=== PATIENT | male | born 1940 | race Caucasian/White ===

== ENCOUNTER 2016-06-30 07:30 | Inpatient (IN) | payer MEDICARE ==
--- NOTE | 2016-12-09 22:03 | HP ---
PREOPERATIVE HISTORY AND PHYSICAL: DATE OF ADMISSION/SURGERY: 12/22/16 DATE OF OFFICE VISIT: 12/09/16 ATTENDING SURGEON: Dr. Alyssa Can * (DICTATED BY PRASANNA WAY) PROCEDURE: Left total shoulder replacement. CHIEF COMPLAINT: Left shoulder pain. HISTORY OF PRESENT ILLNESS: Mr. Pimentel is a 76-year-old male, who presents to the clinic for left shoulder pain for several years due to osteoarthritis and a rotator cuff tendinopathy. The patient has failed conservative measures to include physical therapy and injections. Therefore, has agreed to undergo a left total shoulder replacement with Dr. Can on 12/22/16. PAST MEDICAL HISTORY: Atrial fibrillation, arthritis, BPH, COPD, and prothrombin disorder. PAST SURGICAL HISTORY: Left hip, abdominal sheath repair, hernia repair when he was 8 years old. Denies prior complications with anesthesia. MEDICATIONS: 1. Diazepam 5 mg 1 tab 1 hour before procedure, may repeat x1 in 1 hour if no effect. 2. Ventolin HFA 180 mcg per ACT 2 puffs 4 times a day as needed. 3. Amiodarone HCl 200 mg 1 by mouth every day. 4. Carvedilol 3.125 mg by mouth twice a day. 5. Valsartan 80 mg half a tab a day. 6. Percocet 5/325 one by mouth every 12 hours as needed for pain. 7. 150 mg 1 by mouth every other day. 8. Eliquis 5 mg 1 by mouth twice a day. 9. Spiriva Respimat 2.5 mcg per ACT 2 puffs inhaled daily. 10. Multivitamin 1 capsule daily. 11. Finasteride 5 mg 1 by mouth daily. 12. Tamsulosin HCl 0.4 mg 1 by mouth daily. 13. Calm 1 large tablespoon in warm water p.r.n. 14. Magnesium 200 mg once daily. 15. Spironolactone 25 mg take half a tab daily. ALLERGIES: No known drug allergies. FAMILY HISTORY: Positive for diabetes, heart disease, and cancer. SOCIAL HISTORY: He lives with his spouse. He is retired. He is a former smoker, quit 35 years ago. He denies alcohol use. He is right hand dominant. REVIEW OF SYSTEMS: Fourteen-point review of systems was reviewed with the patient, positive for current complaint, otherwise negative. Denies fever, chills, chest pain, shortness of breath, history of DVT or PE, history of bleeding disorder. PHYSICAL EXAMINATION GENERAL: Well-developed, well-nourished, 76-year-old male, in no acute distress. Alert and oriented x3. Appropriate mood and affect. VITAL SIGNS: Height 72, weight 205, blood pressure 118/72, respiratory rate 16 , temperature 96.7, BMI 27.8. HEENT: Normocephalic, atraumatic. PERRLA. Throat clear. NECK: Supple. PULMONARY: Lungs are clear to auscultation bilaterally. No wheezing, rhonchi, or rales. CARDIO: Regular rate and rhythm. S1 and S2. No murmurs, gallops, or rubs. No edema. ABDOMEN: Positive bowel sounds, soft, nontender. NEURO: Alert and oriented x3. Cranial nerves grossly intact. Sensation intact to light touch. MUSCULOSKELETAL: Left shoulder: Skin is intact. No swelling, tenderness over the anterior joint line. Nontender over the AC joint. Forward flexion to 100 degrees, abduction to 110 degrees, external rotation to 20 degrees, internal rotation to lumbar spine. +4/5 strength to supraspinatus and infraspinatus testing. Good strength to belly press and bear hug. Positive Neer, Speed's, Mcdonald-Trevon, [place]. +2 radial pulse. Sensation intact to light touch distally. DIAGNOSTIC STUDIES: MRI revealed glenohumeral arthritis, mild acromioclavicular joint arthritis, superior subluxation of the humeral head, and 50% tear of the supraspinatus tendon with diffuse rotator cuff atrophy. IMPRESSION: Left shoulder osteoarthritis and rotator cuff tendinopathy. PLAN: The patient is scheduled to undergo a left total shoulder reversal with Dr. Can on 12/22/16. He has been cleared by Cardio. The surgery is pending PCP clearance. Percocet will be used for postop pain management and Colace for constipation prevention. PRASANNA WAY [id number]/[facility] #: [id number] [facility] CENTERFelisa
[2016-12-21] MEDS ORDERED: Buffered Lidocaine 0.9% SYRIN* 5 ML/SYR SYRINGE INTRADERM ONE (11:30)
[2016-12-22] MEDS ORDERED: Buffered Lidocaine 0.9% SYRIN* 5 ML/SYR SYRINGE ONE (05:57)
[2016-12-22] MEDS ORDERED: ceFAZolin 2 GM PREMIX (*) 50 ML IVPB ONE (05:57)
[2016-12-22] MEDS ORDERED: EPINEPHrine AMP 1 MG/ML ONE (07:11)
[2016-12-22] MEDS ORDERED: Bupivacaine 0.25% SDV* 30 ML ONE (07:11)
[2016-12-22] MEDS ORDERED: Midazolam* 1 MG/ML 2 ML VIAL (2 MG) ONE ×3 (07:49→17:08)
[2016-12-22] MEDS ORDERED: fentaNYL* 50 MCG/ML 2 ML VIAL (100 MCG VIAL) ONE ×2 (11:51→14:24)
[2016-12-22] MEDS ORDERED: PROCHLORPERAZINE INJ 5 MG/ML 2 ML VIAL IV PRN (13:56)
[2016-12-22] MEDS ORDERED: Succinylcholine* 20 MG/ML 10 ML VIAL ONE (14:12)
[2016-12-22] MEDS ORDERED: EPHEDrine (Pressors)* 50 MG/ML VIAL ONE ×2 (14:12→14:44)
[2016-12-22] MEDS ORDERED: Dexamethasone IV* 4 MG/ML 1 ML (4 MG) ONE (14:12)
[2016-12-22] MEDS ORDERED: Propofol* 10 MG/ML 20 ML BTL IV PUSH ONE (14:12)
[2016-12-22] MEDS ORDERED: Lidocaine 2% PF * 5 ML VIAL ONE (14:12)
[2016-12-22] MEDS ORDERED: Ondansetron INJ* 2 MG/ML VIAL ONE (14:12)
[2016-12-22] MEDS ORDERED: Phenylephrine IV* 40 MCG/ML 10 ML SYRINGE ONE ×2 (14:13→16:26)
--- NOTE | 2016-12-22 15:33 | RAD ---
Indication: Post LEFT reversed glenohumeral joint replacement. Comparison: December 09, 2016 radiographs. Technique: AP and scapular Y views of the LEFT shoulder Report: Portion of glenoid component of reversed shoulder prosthesis in place. . Resection of the head of the humerus at the surgical neck. No visualized fracture. IMPRESSION: Intraoperative control film.
[2016-12-22] MEDS ORDERED: Ondansetron INJ* 2 MG/ML VIAL IV PRN (17:04)
[2016-12-22] MEDS ORDERED: Polyethylene Glycol 3350* 17 GM PACKET PO PRN (17:04)
[2016-12-22] MEDS ORDERED: Magnesium Hydroxide LIQ* 30 ML UDC PO PRN (17:04)
[2016-12-22] MEDS ORDERED: Bisacodyl SUPP* 10 MG SUPP PR PRN (17:04)
[2016-12-22] MEDS ORDERED: oxyCODONE TAB* 5 MG TAB PO PRN (17:04)
[2016-12-22] MEDS ORDERED: Acetaminophen TAB* 325 MG PO PRN (17:04)
[2016-12-22] MEDS ORDERED: Morphine INJ* 2 MG/ML 1 ML CARPUJECT IV PRN (17:04)
[2016-12-22] MEDS ORDERED: diPHENhydraMINE IV* 50 MG/ML 1 ml VIAL (BENADRYL) IV PRN (17:04)
[2016-12-22] MEDS ORDERED: Albuterol HFA INHALER* 8 gm MDI INH PRN (17:18)
[2016-12-22] MEDS ORDERED: Diazepam TAB(*) 5 MG PO PRN (17:18)
[2016-12-22] MEDS ORDERED: ceFAZolin 1 GM VIAL(*) 1 GM in NS 0.9% 50 ML* 50 ML IVPB SCH (18:00)
--- NOTE | 2016-12-22 18:29 | RAD ---
INDICATION: The patient is status post shoulder arthroplasty COMPARISON: Preoperative radiograph dated December 09, 2016 TECHNIQUE: 4 views of the left shoulder were obtained. FINDINGS: There is been interval placement of a left shoulder prosthesis. The components appear to be in apposition with each other. There is no radiographic evidence of periprostatic fracture. Postsurgical drain is noted in position. IMPRESSION: STATUS POST LEFT SHOULDER ARTHROPLASTY THAT APPEARS TO BE ANATOMICALLY ALIGNED.
--- NOTE | 2016-12-22 18:33 | CONSULT ---
Subjective Date of Service: 12/22/16 Interval History: Provider: Dr. Reynoso (Dictated by Porsha Melendez W[employer]ER) CC: Dr. Can, Dr. Richmond Consultation Report: Date of Admission 12/22/2016 Date of Consult 12/22/2016 Primary Care Provider: Dr. Richmond Attending Physician While in the Hospital: Dr. Can Reason for Medical Consultation: 500 ml EBL Perioperative and multiple co- morbidities HPI: Mr. Pimentel is a 76 year old male admitted for total left shoulder. Has had several years of shoulder pain due to osteoarthritis and rotator cuff tendinopathy. Failed conservative treatment which included physical therapy and injections. Due to patients 500 EBL perioperative, Hospitalist group consulted to help manage patients multiple co-morbidities. Patient denies dizziness, light headedness, chest pain, palpations, shortness of breath or nausea. Family History: Findings - Mother due to Gastric Cancer, Father due to Esophageal cancer, Brother due to Lung Cancer, Sister due to Breast Cancer. 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 Former smoker (quit 35 years ago), Denies Alcohol use. Treadmill 3X week. Past Medical History: Findings - Nonischemic Cardiomyopathy, COPD, Bronchitis- chronic, Osteoarthritis, PVC's and NSVT, Hernia Repair 1995, Inguinal Repair as a child. 10/2009 Left hip fracture with 4 pins to repair Review of Systems - Measurements Intake and Output: Intake and Output Last 24 Hours 12/20/16 12/21/16 12/22/16 12/23/16 06:59 06:59 06:59 06:59 Intake Total 2500 Output Total 500 Balance 1999 Weight 203 lb 3.2 oz Intake: IV Fluids 2500 LR 2500 Output: Estimated Blood Loss 500 - Review of Systems General Comments: Mr. Pimentel a 76 year old male, greeted in the Recovery room area. A&O X3. Pleasant and cheerful. Requested by Dr. Can to consult as patient has multiple co-morbidities and a 500 ml blood loss during surgery. Constitutional Symptoms: Negative: Weight Gain, Weight Loss, Weakness, Fatigue, Fever, Night Sweats, Unexplained Falls, Other Dermatology: Positive: Normal, Other - Dressing intact to Left shoulder region Negative: Rash, Skin Lesions, Cancer, Skin Lumps HEENT: Positive: Normal Negative: Change in Hearing, Vertigo, Dental Problems, Tinnitus, Sinus Problem, Other Eyes: Negative: Change in Vision, Double Vision, Eye Pain, Glaucoma, Cataract, Contacts or Glasses, Other Thyroid: Positive: Normal Negative: Goiter, Thyroid Nodule, Cold Intolerance, Heat Intolerance, Sweatiness, Tremor, Frequent Defecation, Constipation, Palpitations, Primary Hypothyroidism, Primary Hyperthyroidism, Weight Loss, Weight Gain, Change in Skin/Hair, Change in Menstration, Radiation Exposure, Other Pulmonary: Positive: COPD Negative: Normal, Cough, Sputum, Hemoptysis, Wheezing, Respiratory Distress, Shortness of Breath, Asthma, Exercise Intolerance, Home Oxygen, Other Cardiology: Positive: Shortness of Breath, Palpitations Negative: Normal, Chest Pain, Swelling of Ankles, Peripheral Vascular Dis, Edema, Faintness, Syncope, Claudication, Proximal NocturnalDyspnea, Orthopnoea, Other Gastroenterology: Positive: Normal Negative: Abdominal Pain, Nausea, Vomiting, Anorexia, Indigestion, Difficulty Swallowing, Heartburn, Constipation, Diarrhea, Blood in Stools, Change in Bowel Habits, Haematemesis, Melena, Other Genital - Urinary: Positive: Nocturia, Other - Urgency Negative: Normal, Dysuria, Hematuria, Polyuria Genitourinary - Male: Positive: Other - BNP. Negative: Prostatism, Erectile Dysfunction, Family Hx of Prostate Cancer Musculoskeletal: Positive: Joint Pain, Arthritis, Osteoporosis Negative: Joint Stiffness, Low Back Pain, Sciatica, Joint Deformities, Kyphoscoliosis, Other Endocrinology: Negative: Normal, Thyroid Problems, Adrenal Problems, Gonadal Problems, Family Hx Endocrine Disorders, Obesity, Diabetes Mellitus, Hyperglycemia, Hx Hypoglycemia, Diabetic Foot Ulcers, Calluses, Hirsutism, Menstral Abnormalities , Polydipsia, Polyuria, Gonadal Problems, Gynecomastia, Pituitary disease, Other Hematologic/Lymphatic: Positive: Anemia, Easy Brusing, Use of Anticoagulant, Other - Prothombin Factor X defect per Negative: Hx Leukemia, Hx Lymphoma, Use of Antiplatelet Drugs Neurology: Negative: Headache, Migraines, Change in Vision, Diplopia, Dizziness, Change in Balancing, Change in Coordination, Change in Memory, Change in Speech, Change in Sphincter Function, Change in Walking, Numbness\Paresthesiae, Unexplained Weakness, Hx of Stroke\TIA, Hx of Seizures, Other Psychiatry: Positive: Normal Negative: Depression, Anxiety, Depressed Mood, Adhedonia, Sexual Dysfunction , Weight Change, Guilt Feelings, Tearfulness, Unusual Fatigue, Unusual Anxiety, Suicidal Ideation, Hypomania, Eating Disorders, Other Allergic/Immunologic: Negative: Hx Anaphylaxis, Hx Angioedema, Hx Environmental, Hx Seasonal, Athsma, Hx HIV, Immunocompromise, Swollen Glands LymphNodes, Other Objective Active Medications: Acetaminophen (Tylenol Tab*) 650 mg PO Q4H PRN PRN Reason: PAIN OR TEMPERATURE Albuterol (Ventolin Hfa Inhaler*) puff INH Q4H PRN PRN Reason: SOB/WHEEZING Amiodarone HCl (Cordarone Tab*) 200 mg PO DAILY [facility] Apixaban (Eliquis*) 5 mg PO BID [facility] Bisacodyl (Dulcolax Supp*) 10 mg SC DAILY PRN PRN Reason: constipation Carvedilol (Coreg Tab*) 3.125 mg PO BID [facility] Diazepam (Valium Tab(*)) 5 mg PO SEE INSTRUCTIONS PRN PRN Reason: preprocedure Diphenhydramine HCl (Benadryl Iv*) 25 mg IV Q6H PRN PRN Reason: itching Finasteride (Proscar Tab*) 5 mg PO DAILY [facility] Lactated Ringer's (Lactated Ringers 1000 Ml Bag*) 1,000 mls @ 125 mls/hr IV PER RATE [facility] Cefazolin Sodium 1 gm/ Sodium (Chloride) 50 mls @ 200 mls/hr IVPB Q8H [facility] Stop: 12/23/16 10:14 Lactated Ringer's (Lactated Ringers 1000 Ml Bag*) 1,000 mls @ 100 mls/hr IV PER RATE [facility] Lactulose (Lactulose*) 30 ml PO Q6H PRN PRN Reason: constipation Lidocaine/Sodium Bicarbonate (Buffered Lidocaine 0.9% Syrin*) 0.2 ml INTRADERM ONCE ONE Stop: 12/21/16 11:31 Magnesium Hydroxide (Milk Of Magnesia Liq*) 30 ml PO Q6H PRN PRN Reason: constipation Morphine Sulfate (Morphine Inj (Syringe)*) 2 mg IV Q2H PRN PRN Reason: PAIN - SEVERE Non-Formulary Medication (Tiotropium [place] Monohydrate [Spiriva Respimat]) 2.5 mcg IN DAILY [facility] Ondansetron HCl (Zofran Inj*) 4 mg IV Q6H PRN PRN Reason: nausea Oxycodone HCl (Roxycodone Tab*) 10 mg PO Q4H PRN PRN Reason: PAIN - MODERATE TO SEVERE Oxycodone/Acetaminophen (Percocet 5/325 Tab*) 2 tab PO Q4H PRN PRN Reason: PAIN - MODERATE TO SEVERE Oxycodone/Acetaminophen (Percocet 5/325 Tab*) 1 tab PO Q4H PRN PRN Reason: PAIN - MILD TO MODERATE Polyethylene Glycol/Electrolytes (Miralax*) 17 gm PO DAILY PRN PRN Reason: Constipation Prochlorperazine Edisylate (Compazine Inj*) 5 mg IV ONCE PRN PRN Reason: NAUSEA/VOMITING Stop: 12/22/16 13:57 Tamsulosin HCl (Flomax Cap*) mg PO DAILY [facility] Temazepam (Restoril Cap*) 15 mg PO BEDTIME PRN PRN Reason: INSOMNIA Vital Signs 12/22/16 12/22/16 12/22/16 06:11 17:20 17:25 Temperature 97.3 F 96.8 F Pulse Rate 53 85 86 Respiratory 16 16 16 Rate Blood Pressure 148/81 91/60 97/60 (mmHg) O2 Sat by Pulse 99 99 99 Oximetry 12/22/16 12/22/16 17:30 17:35 Temperature Pulse Rate 88 93 Respiratory 16 16 Rate Blood Pressure 97/64 103/68 (mmHg) O2 Sat by Pulse 99 99 Oximetry Oxygen Devices in Use Now: Nasal Cannula Appearance: Alert & Oriented, skin pink, patient talkative & cheerful Eyes: No Scleral Icterus, PERRLA Ears/Nose/Mouth/Throat: NL Teeth, Lips, Gums, Clear Oropharnyx, Mucous Membranes Moist Neck: NL Appearance and Movements; NL JVP, Trachea Midline, No Thyroid Enlargement, Masses Respiratory: Symmetrical Chest Expansion and Respiratory Effort, - - Left lung base decreased air movement. Inspiron ordered Cardiovascular: NL Sounds; No Murmurs; No JVD, RRR, No Edema Abdominal: No Hepatosplenomegaly, - - No Tenderness, No distention, hypoactive bowel sounds Lymphatic: No Cervical Adenopathy, No Axillary Adenopathy, No Inguinal Adenopathy, No Auricular Adenopathy Extremities: No Edema, No Clubbing, Cyanosis Skin: No Rash or Ulcers, No Nodules or Sclerosis, - - Dressing to left shoulder intact Neurological: Alert and Oriented x 3, NL Sensation, NL Gait, NL Muscle Strength and Tone Lines/Tubes/Other Access: Clean, Dry and Intact Peripheral IV - Right Arm Nutrition: Taking PO's Additional Lab and Data: Lab work unavailable at this time. Lab work pending in am. Microbiology and Other Data: Microbiology 12/22/16 14:05 Wound Gram Stain - Final Tissue - Shoulder Left Assessment/Plan - Billing Plan By Medical Problem: 1. Left Total Shoulder: Defer management to Dr. Can and her team 2. Paroxysmal Atrial Fibrillation: Will continue his Amiodarone and Carvedilol with hold parameters as his Blood pressure was SBP 90-100's in the recovery room. 3. Nonischemic Cardiomyopathy: Will hold his Valsartan and Spironolctone until his SBP returns to his baseline due to his SBP 90-100's post-op. 4. COPD: Will continue his Spiriva daily and Ventolin PRN. Inspiron ordered. OOB CAROLYNN when okayed by Dr. Can. 5. Arthritis: Left shoulder Replacement. 6. BPH: Continue Finasteride and Tamsulosin 7. Prothrombin Defect: Restart Eliquis per surgery. If patient shows signs of bleeding Hematology will be consulted. 8. Iron Deficiency anemia: Continue Iferex 9. DVT prohylaxis: SCD's 10. Code Status: Full CodeMinerva HCP 11. FEN: Regular Diet Time Spent: Time Spent on consult was approximately 60 minutes; greater than half the time was spent face to face with the patient and obtaining my history and physical, other half the time was spend going over the plan of care with the patient and and implementing the plan of care. Discussed care with attending Dr. Mayen and she is in agreement of current plan. Admission Status and Rationale: Left Total Shoulder
[2016-12-22] MEDS ORDERED: Temazepam CAP* 15 MG PO PRN (21:00)
[2016-12-22] MEDS ORDERED: Carvedilol TAB* 3.125 MG PO SCH (21:00)
[2016-12-22] MEDS: Carvedilol TAB* 3.125 MG PO SCH (21:24)
[2016-12-22] MEDS: ceFAZolin 1 GM in Dextrose (*) 1 GM/50 ML BAG IVPB SCH (22:37)
[2016-12-23] MEDS ORDERED: LR IV ONE (00:30)
[2016-12-23] MEDS: oxyCODONE/Acetamin 5/325 MG* TAB PO PRN ×7 (02:37→20:59)
[2016-12-23] MEDS: ceFAZolin 1 GM in Dextrose (*) 1 GM/50 ML BAG IVPB SCH ×2 (05:11→15:42)
--- NOTE | 2016-12-23 07:50 | PN ---
Progress Note - Progress Note Date of Service: 12/23/16 SOAP: Subjective: Pt states that he is doing well. He is able to move his hand. His pain is controlled with pain medication. He denies CP, SOB, F/C or dizziness. Objective: 76 y/o M NAD, lying comfortably in bed LUE- dressing c/d/i, hemovac drain intact with serosanguineous drainage, pt in sling, full ROM of wrist and hand, sensation intact to light touch throughout hand Vital Signs Temp Pulse Resp BP Pulse Ox 98.0 F 64 16 93/51 100 12/23/16 04:10 12/23/16 04:10 12/23/16 07:46 12/23/16 04:10 12/23/16 04:10 Laboratory Results - last 24 hr 12/23/16 12/23/16 07:27 07:27 Hgb 9.1 L Hct 26 L Sodium 136 Potassium 3.8 Chloride 107 Carbon Dioxide 26 Anion Gap 3 BUN 15 Creatinine 0.66 L Est GFR ( Amer) 150.9 Est GFR (Non-Af Amer) 117.3 BUN/Creatinine Ratio 22.7 H Glucose 106 H Calcium 7.6 L Magnesium 1.7 L Assessment: POD 1 s/p Left TSR Plan: NWB LUE, no ROM of shoulder Cont use of sling at all times Cont pain management Drain removed today Post op anemia- cont monitor H&H Eliquis restarted for DVT prophylaxis Appreciate hosp consult DC to home tomorrow
[2016-12-23 08:14] LABS: Hematocrit 26 % (42-52); Hemoglobin 9.1 g/dl (14.0-18.0)
[2016-12-23] MEDS: Carvedilol TAB* 3.125 MG PO SCH ×2 (08:31→21:03)
[2016-12-23] MEDS: TIOTROPIUM BROMIDE MONOHYDRATE 2.5 MCG IN SCH (08:32)
[2016-12-23 08:39] LABS: BUN/Creatinine Ratio 22.7 (8-20); Calcium 7.6 mg/dL (8.6-10.3); EGFR African American 150.9 (>60); EGFR Non-African American 117.3 (>60); Magnesium 1.7 mg/dL (1.9-2.7); Potassium 3.8 mmol/L (3.5-5.0)
[2016-12-23] MEDS: Amiodarone TAB* 200 MG PO SCH (08:40)
[2016-12-23] MEDS: Finasteride TAB* 5 MG PO SCH (08:40)
[2016-12-23] MEDS: Tamsulosin CAP* 0.4 MG PO SCH (08:40)
--- NOTE | 2016-12-23 08:53 | PN ---
Subjective Date of Service: 12/23/16 Interval History: HOSPITALIST PROGRESS NOTE Patient seen and examined at bedside. He feels well today. States he felt a little lightheaded sitting up at the edge of the bed yesterday, but no symptoms today. No palpitations, CP, or dyspnea. Pain is controlled. Family History: Unchanged from Admission Social History: Unchanged from Admission Past Medical History: Unchanged from Admission Objective Active Medications: Acetaminophen (Tylenol Tab*) 650 mg PO Q4H PRN PRN Reason: PAIN OR TEMPERATURE Albuterol (Ventolin Hfa Inhaler*) 2 puff INH Q4H PRN PRN Reason: SOB/WHEEZING Amiodarone HCl (Cordarone Tab*) 200 mg PO DAILY [facility] Last Admin: 12/23/16 08:40 Dose: 200 mg Bisacodyl (Dulcolax Supp*) 10 mg ME DAILY PRN PRN Reason: constipation Carvedilol (Coreg Tab*) 3.125 mg PO BID [facility] Last Admin: 12/23/16 08:31 Dose: Not Given Diazepam (Valium Tab(*)) 5 mg PO ONCE PRN PRN Reason: PRE-PROCEDURE Stop: 12/23/16 17:17 Diphenhydramine HCl (Benadryl Iv*) 25 mg IV Q6H PRN PRN Reason: itching Enoxaparin Sodium (Lovenox(*)) 40 mg SUBCUT Q24H [facility] Finasteride (Proscar Tab*) 5 mg PO DAILY [facility] Last Admin: 12/23/16 08:40 Dose: 5 mg Lactated Ringer's (Lactated Ringers 1000 Ml Bag*) 1,000 mls @ 125 mls/hr IV PER RATE [facility] Lactated Ringer's (Lactated Ringers 1000 Ml Bag*) 1,000 mls @ 100 mls/hr IV PER RATE [facility] Last Admin: 12/22/16 20:00 Dose: 100 mls/hr Cefazolin Sodium/Dextrose (Kefzol 1 Gm In Dextrose Duplex (*)) 1 gm in 50 mls @ 200 mls/hr IVPB Q8H [facility] Stop: 12/23/16 14:14 Last Admin: 12/23/16 05:11 Dose: 200 mls/hr Lactulose (Lactulose*) 30 ml PO Q6H PRN PRN Reason: constipation Magnesium Hydroxide (Milk Of Magnesia Liq*) 30 ml PO Q6H PRN PRN Reason: constipation Morphine Sulfate (Morphine Inj (Syringe)*) 2 mg IV Q2H PRN PRN Reason: PAIN - SEVERE Non-Formulary Medication (Tiotropium [place] Monohydrate [Spiriva Respimat]) 2.5 mcg IN DAILY [facility] Last Admin: 12/23/16 08:32 Dose: Not Given Ondansetron HCl (Zofran Inj*) 4 mg IV Q6H PRN PRN Reason: nausea Oxycodone HCl (Roxycodone Tab*) 10 mg PO Q4H PRN PRN Reason: PAIN - MODERATE TO SEVERE Oxycodone/Acetaminophen (Percocet 5/325 Tab*) 2 tab PO Q4H PRN PRN Reason: PAIN - MODERATE TO SEVERE Last Admin: 12/23/16 07:46 Dose: 2 tab Oxycodone/Acetaminophen (Percocet 5/325 Tab*) 1 tab PO Q4H PRN PRN Reason: PAIN - MILD TO MODERATE Last Admin: 12/23/16 03:01 Dose: 1 tab Polyethylene Glycol/Electrolytes (Miralax*) 17 gm PO DAILY PRN PRN Reason: Constipation Tamsulosin HCl (Flomax Cap*) 0.4 mg PO DAILY [facility] Last Admin: 12/23/16 08:40 Dose: 0.4 mg Temazepam (Restoril Cap*) 15 mg PO BEDTIME PRN PRN Reason: INSOMNIA Vital Signs 12/23/16 12/23/16 12/23/16 04:40 07:32 07:46 Temperature 98.5 F Pulse Rate 58 Respiratory 18 20 16 Rate Blood Pressure 101/53 (mmHg) O2 Sat by Pulse 100 Oximetry Oxygen Devices in Use Now: None Appearance: Pleasant gentleman lying in bed in NAD. Eyes: No Scleral Icterus Ears/Nose/Mouth/Throat: Mucous Membranes Moist Neck: Trachea Midline Respiratory: Symmetrical Chest Expansion and Respiratory Effort, Clear to Auscultation Cardiovascular: RRR - Normal S1 and S2 Neurological: Alert and Oriented x 3, NL Muscle Strength and Tone Lines/Tubes/Other Access: Clean, Dry and Intact Peripheral IV Nutrition: Taking PO's Result Diagrams: 12/23/16 15:40 12/23/16 07:27 Assess/Plan/Problems-Billing Assessment: Mr. Pimentel is a 76yo M with PMH of paroxysmal Afib, BPH, chronic bronchitis, prothrombin gene mutation, Parkinsonism, non ischemic CMP with Ef 20%, admitted for elective left shoulder total reversal. Hospitalist service consulted to manage comorbidities. - Patient Problems (1) Paroxysmal atrial fibrillation Comment: - The patient has a regular heart rhythm at this time, but had issues with being in and out of Afib before. He tells me his first episode was after his hip surgery 7 years ago. Considering this h/o and also his prothrombin gene mutation, I believe his Eliquis should be resumed CAROLYNN - d/w Dr. Can - will resume today and monitor his H/H. - Continue Coreg and Amiodarone. (2) Non-ischemic cardiomyopathy Comment: - Stable. - Will d/c IVF as patient has low EF and VS are stable. - Continue Coreg. Valsartan on hold as his BP is on the softer side. (3) Chronic bronchitis Comment: - Stable. - Continue Tiotropium. (4) BPH (benign prostatic hyperplasia) Comment: - Continue Tamsulosin and Finasteride. (5) DVT prophylaxis Comment: - Eliquis. (6) Full code status Status and Disposition: Hospitalist service will continue to follow with you.
[2016-12-23] MEDS ORDERED: Spironolactone TAB* 25 MG PO SCH (09:00)
[2016-12-23] MEDS ORDERED: Valsartan TAB* 80 MG PO SCH (09:00)
[2016-12-23] MEDS: Apixaban* 5 MG TAB PO SCH ×2 (09:35→21:03)
--- NOTE | 2016-12-23 11:23 | PN ---
Progress Note - Progress Note Date of Service: 12/23/16 SOAP: Subjective: POD#1 from left shoulder reverse Doing well. Some discomfort. Worked with PT. denies numbness and tingling. Denies SOB, CP. No dizziness or light headedness Objective: Temp Pulse Resp BP Pulse Ox 98.5 F 58 16 101/53 100 12/23/16 07:32 12/23/16 07:32 12/23/16 09:46 12/23/16 07:32 12/23/16 07:54 NAD. AAOx3. Dressing in place. drain in place. Able to flex/ext digits. 2+ radial pulse. Sensate to light touch about 1st dws, index and long finger, and ulnar aspect of small finger. able to flex/ext wrist Laboratory Results - last 24 hr 12/23/16 12/23/16 07:27 07:27 Hgb 9.1 L Hct 26 L Sodium 136 Potassium 3.8 Chloride 107 Carbon Dioxide 26 Anion Gap 3 BUN 15 Creatinine 0.66 L Est GFR ( Amer) 150.9 Est GFR (Non-Af Amer) 117.3 BUN/Creatinine Ratio 22.7 H Glucose 106 H Calcium 7.6 L Magnesium 1.7 L Assessment: POD#1 from L shoulder reverse Plan: appreciate medicine assistance. HCT 26 will follow d/c drain later today likely discharge tomorrow 24 hours post op abx post op xrays acceptable cont PT/OT- NWB. no motion of shoulder. allowed active ROM of wrist, elbow, and hand restart eliquis
[2016-12-23 16:03] LABS: Hematocrit 26 % (42-52); Hemoglobin 9.1 g/dl (14.0-18.0)
[2016-12-23] MEDS ORDERED: Enoxaparin(*) 40 MG/0.4 ML SYR SUBCUT SCH ×2 (17:00→18:00)
[2016-12-23 20:39] LABS: Hematocrit 28 % (42-52); Hemoglobin 9.6 g/dl (14.0-18.0)
[2016-12-23] MEDS ORDERED: Apixaban* 5 MG TAB PO SCH (21:00)
[2016-12-23] MEDS ORDERED: Magnesium Sulfate 2 GM IV* 2 GM/50 ML BAG IVPB ONE (21:26)
[2016-12-24] MEDS ORDERED: Morphine INJ* 2 MG/ML 1 ML SYRINGE (TWO MG - NEW SYRINGE VERSION) ONE (00:06)
[2016-12-24] MEDS: oxyCODONE/Acetamin 5/325 MG* TAB PO PRN ×4 (02:06→15:07)
[2016-12-24 07:01] LABS: Hematocrit 25 % (42-52)
[2016-12-24 07:17] LABS: Comments Flag Yes
--- NOTE | 2016-12-24 08:46 | PN ---
Progress Note - Progress Note Date of Service: 12/24/16 SOAP: Subjective: 76 y/o male s/p reverse total shoulder 12/22/2016. Patient took Percocet on empty stomach, + nausea/ vomiting, beginning to improve, tolerating fluids and crackers. Patient states felt very well last night, understands restrictions. Objective: General- Appearing weak, lying in bed, washcloth on forehead, AO MSK- Surgical dressing intact, no drainage noted, Assistant Golf Course Superintendent strength 4/5, full ROM 1st L digit, ulnar, rad pulses intact, sensation intact to light touch L UE. Vital Signs Temp 97.5 F 12/24/16 03:53 Pulse 64 12/24/16 06:42 Resp 16 12/24/16 06:37 BP 99/60 12/24/16 06:42 Pulse Ox 97 12/24/16 03:53 Intake & Output 12/23/16 12/24/16 12/24/16 18:59 06:59 18:59 Intake Total 1917 1740 Output Total 100 1850 Balance 1817 -110 Intake: IV Fluids 1408 50 LR 1408 NS (0.9%) 50 IVPB 109 50 ABX - CEFAZOLIN 109 magnesium 50 Oral 400 1640 Output: Hemovac Amount #1 100 Urine 1850 Other: Estimated Void Medium Large # Bowel Movements 0 # Voids 1 Assessment: Stable 76 y/o male s/p reverse total shoulder 12/22/2016. Plan: - DVT prophylaxis- eliquis - NWB, no motion, full ROM wrist, fingers. Patient aware. - Continue current pain regimen - anaya for D/C - Follow up with DR. Can within 10 days for suture removal. Active Medications Generic Name Dose Route Start Last Admin Trade Name Freq PRN Reason Stop Dose Admin Acetaminophen 650 mg 12/22/16 17:04 Tylenol Tab* PO Q4H PRN PAIN OR TEMPERATURE Albuterol 2 puff 12/22/16 17:18 Ventolin Hfa Inhaler* INH Q4H PRN SOB/WHEEZING Amiodarone HCl 200 mg 12/23/16 09:00 12/23/16 08:40 Cordarone Tab* PO 200 mg DAILY KADE Administration Apixaban 5 mg 12/23/16 09:00 12/23/16 21:03 Eliquis* PO 5 mg BID KADE Administration Bisacodyl 10 mg 12/22/16 17:04 Dulcolax Supp* [place] DAILY PRN constipation Carvedilol 3.125 mg 12/22/16 21:00 12/23/16 21:03 Coreg Tab* PO 3.125 mg BID KADE Administration Diphenhydramine HCl 25 mg 12/22/16 17:04 Benadryl Iv* IV Q6H PRN itching Finasteride 5 mg 12/23/16 09:00 12/23/16 08:40 Proscar Tab* PO 5 mg DAILY KADE Administration Lactulose 30 ml 12/22/16 17:04 Lactulose* PO Q6H PRN constipation Magnesium Hydroxide 30 ml 12/22/16 17:04 Milk Of Magnesia Liq* PO Q6H PRN constipation Morphine Sulfate 2 mg 12/22/16 17:04 Morphine Inj (Syringe)* IV Q2H PRN PAIN - SEVERE Non-Formulary Medication 2.5 mcg 12/23/16 09:00 12/23/16 08:32 Tiotropium [place] Monohydrate [Spiriva Respimat] IN Not Given DAILY KADE Ondansetron HCl 4 mg 12/22/16 17:04 Zofran Inj* IV Q6H PRN nausea Oxycodone HCl 10 mg 12/22/16 17:04 Roxycodone Tab* PO Q4H PRN PAIN - MODERATE TO SEVERE Oxycodone/Acetaminophen 2 tab 12/22/16 17:04 12/24/16 06:37 Percocet 5/325 Tab* PO 2 tab Q4H PRN Administration PAIN - MODERATE TO SEVERE Oxycodone/Acetaminophen 1 tab 12/22/16 17:04 12/23/16 17:04 Percocet 5/325 Tab* PO 1 tab Q4H PRN Administration PAIN - MILD TO MODERATE Polyethylene Glycol/Electrolytes 17 gm 12/22/16 17:04 Miralax* PO DAILY PRN Constipation Tamsulosin HCl 0.4 mg 12/23/16 09:00 12/23/16 08:40 Flomax Cap* PO 0.4 mg DAILY KADE Administration Temazepam 15 mg 12/22/16 21:00 Restoril Cap* PO BEDTIME PRN INSOMNIA
[2016-12-24] MEDS: Tamsulosin CAP* 0.4 MG PO SCH (09:23)
[2016-12-24] MEDS: Amiodarone TAB* 200 MG PO SCH (09:23)
[2016-12-24] MEDS: Carvedilol TAB* 3.125 MG PO SCH (09:23)
[2016-12-24] MEDS: TIOTROPIUM BROMIDE MONOHYDRATE 2.5 MCG IN SCH (09:24)
[2016-12-24] MEDS: Finasteride TAB* 5 MG PO SCH (09:24)
[2016-12-24] MEDS: Apixaban* 5 MG TAB PO SCH (09:24)
[2016-12-24] MEDS ORDERED: PROCHLORPERAZINE INJ 5 MG/ML 2 ML VIAL IV PRN (10:27)
--- NOTE | 2016-12-24 15:01 | PN ---
Subjective Date of Service: 12/24/16 Interval History: HOSPITALIST PROGRESS NOTE Patient seen and examined at bedside. He had some nausea after taking Percocet on an empty stomach, but feels better now. Denies pain, dizziness, or lightheadedness. Family History: Unchanged from Admission Social History: Unchanged from Admission Past Medical History: Unchanged from Admission Objective Active Medications: Acetaminophen (Tylenol Tab*) 650 mg PO Q4H PRN PRN Reason: PAIN OR TEMPERATURE Albuterol (Ventolin Hfa Inhaler*) 2 puff INH Q4H PRN PRN Reason: SOB/WHEEZING Amiodarone HCl (Cordarone Tab*) 200 mg PO DAILY [facility] Last Admin: 12/24/16 09:23 Dose: 200 mg Apixaban (Eliquis*) 5 mg PO BID [facility] Last Admin: 12/24/16 09:24 Dose: 5 mg Bisacodyl (Dulcolax Supp*) 10 mg [place] DAILY PRN PRN Reason: constipation Carvedilol (Coreg Tab*) 3.125 mg PO BID [facility] Last Admin: 12/24/16 09:23 Dose: 3.125 mg Diphenhydramine HCl (Benadryl Iv*) 25 mg IV Q6H PRN PRN Reason: itching Finasteride (Proscar Tab*) 5 mg PO DAILY [facility] Last Admin: 12/24/16 09:24 Dose: 5 mg Lactulose (Lactulose*) 30 ml PO Q6H PRN PRN Reason: constipation Magnesium Hydroxide (Milk Of Magnesia Liq*) 30 ml PO Q6H PRN PRN Reason: constipation Morphine Sulfate (Morphine Inj (Syringe)*) 2 mg IV Q2H PRN PRN Reason: PAIN - SEVERE Non-Formulary Medication (Tiotropium [place] Monohydrate [Spiriva Respimat]) 2.5 mcg IN DAILY [facility] Last Admin: 12/24/16 09:24 Dose: Not Given Ondansetron HCl (Zofran Inj*) 4 mg IV Q6H PRN PRN Reason: nausea Oxycodone HCl (Roxycodone Tab*) 10 mg PO Q4H PRN PRN Reason: PAIN - MODERATE TO SEVERE Oxycodone/Acetaminophen (Percocet 5/325 Tab*) 2 tab PO Q4H PRN PRN Reason: PAIN - MODERATE TO SEVERE Last Admin: 12/24/16 06:37 Dose: 2 tab Oxycodone/Acetaminophen (Percocet 5/325 Tab*) 1 tab PO Q4H PRN PRN Reason: PAIN - MILD TO MODERATE Last Admin: 12/24/16 14:18 Dose: 1 tab Polyethylene Glycol/Electrolytes (Miralax*) 17 gm PO DAILY PRN PRN Reason: Constipation Prochlorperazine Edisylate (Compazine Inj*) 5 mg IV Q6H PRN PRN Reason: NAUSEA/VOMITING Last Admin: 12/24/16 10:38 Dose: 5 mg Tamsulosin HCl (Flomax Cap*) 0.4 mg PO DAILY KADE Last Admin: 12/24/16 09:23 Dose: 0.4 mg Temazepam (Restoril Cap*) 15 mg PO BEDTIME PRN PRN Reason: INSOMNIA Vital Signs 12/24/16 12/24/16 11:52 14:18 Temperature 97.4 F Pulse Rate 57 Respiratory 21 20 Rate Blood Pressure 97/57 (mmHg) O2 Sat by Pulse 98 Oximetry Oxygen Devices in Use Now: None Appearance: Pleasant elderly male lying in bed in NAD. Eyes: No Scleral Icterus Ears/Nose/Mouth/Throat: Mucous Membranes Moist Neck: Trachea Midline Respiratory: Symmetrical Chest Expansion and Respiratory Effort, Clear to Auscultation Cardiovascular: RRR - Normal S1 and S2 Lines/Tubes/Other Access: Clean, Dry and Intact Peripheral IV Nutrition: Taking PO's Result Diagrams: 12/24/16 06:40 12/23/16 07:27 Assess/Plan/Problems-Billing Assessment: Mr. Pimentel is a 76yo M with PMH of paroxysmal Afib, BPH, chronic bronchitis, prothrombin gene mutation, Parkinsonism, non ischemic CMP with Ef 20%, admitted for elective left shoulder total reversal. Hospitalist service consulted to manage comorbidities. - Patient Problems (1) Paroxysmal atrial fibrillation Comment: - Continue Eliquis - H/H remains stable. - Continue Coreg and Amiodarone. (2) Non-ischemic cardiomyopathy Comment: - Stable. - Continue Coreg. Valsartan on hold as his BP is on the softer side. (3) Chronic bronchitis Comment: - Stable. - Continue Tiotropium. (4) BPH (benign prostatic hyperplasia) Comment: - Continue Tamsulosin and Finasteride. (5) DVT prophylaxis Comment: - Eliquis. (6) Full code status Status and Disposition: Hospitalist service will continue to follow with you.
[2016-12-24 15:58] VITALS: BP 120/60
--- NOTE | 2016-12-25 06:23 | DS ---
DISCHARGE SUMMARY: DATE OF ADMISSION: 12/22/16 DATE OF DISCHARGE: 12/24/16 ATTENDING PHYSICIAN: Alyssa Can MD* (dictated by PRASANNA Aguiar). CHIEF COMPLAINT: 1. Left shoulder pain. 2. Atrial fibrillation. 3. Arthritis. 4. Benign prostatic hypertrophy. 5. Chronic obstructive pulmonary disease. 6. Prothrombin disorder. DISCHARGE DIAGNOSES: 1. Status post left shoulder replacement. 2. Atrial fibrillation. 3. Arthritis. 4. Benign prostatic hypertrophy. 5. Chronic obstructive pulmonary disease. 6. Prothrombin disorder. PROCEDURE: Left total reverse shoulder replacement. BRIEF HISTORY: Mr. Pimentel is a very pleasant 76-year-old male who presented to Dr. Can's office with several years of osteoarthritis and rotator cuff tendinopathy, who failed conservative treatment measures such as physical therapy and injections and elected to undergo a left total shoulder replacement by Dr. Can on 12/22/16. HOSPITAL COURSE: Mr. Pimentel was admitted to [facility] on 12/22/16 where he underwent an uncomplicated left reverse shoulder arthroplasty. He recovered in the short surgical stay unit and his drain was removed on postoperative day 1. His DVT prophylaxis was managed with Eliquis. His pain was well controlled with p.o. Percocet. His vital signs remained stable. He had postoperative anemia with an H and H of 9.1/26 on postoperative day 1, which remained stable throughout his stay. By postoperative day 2, he was orthopedically and medically cleared for discharge to go home with home services. PHYSICAL EXAMINATION: General: Well appearing, in no acute distress. Alert and oriented. Vital Signs: Temperature 97.5, pulse 64, respirations 16, blood pressure 99/60, pulse oxygenation 97. MSK: Surgical dressing intact over left shoulder. Wounds: No drainage noted. [employer]er strength, 4/5 on left side. Full range of motion of all left digits. Radial and ulnar pulses are intact. Sensation is intact to light touch in left upper extremity. DIAGNOSTIC STUDIES: Radiographs; postoperative films taken on 12/22/16 of the left shoulder show a satisfactory left shoulder arthroplasty that appears to be anatomically aligned. DISCHARGE MEDICATIONS: 1. Tylenol 650 mg p.o. q. 4 hours p.r.n. for pain. 2. Albuterol 1 to 2 puffs inhalation q. 4 hours p.r.n. 3. Amiodarone 200 mg p.o. daily. 4. Eliquis 5 mg p.o. b.i.d. 5. Carvedilol 3.125 mg p.o. b.i.d. 6. Finasteride 1 tablet p.o. daily. 7. Zofran 4 mg tablet p.o. daily p.r.n. for nausea. 8. Flomax 0.4 mg 1 tablet p.o. #10. 9. Spiriva 2.5 mcg inhalation daily. 10. Valium 5 mg p.o. p.r.n. 11. Iron supplementation 1 tablet p.o. b.i.d. 12. Magnesium 200 mg p.o. daily. 13. Daily multivitamin p.o. 1 tablet daily. 14. Spironolactone 12.5 mg p.o. daily. 15. Diovan 40 mg p.o. daily. CONDITION ON DISCHARGE: Stable. DISCHARGE INSTRUCTIONS: Mr. Pimentel is a very pleasant 76-year-old male, postoperative day 2, status post a left total shoulder arthroplasty, which was uncomplicated. He is orthopedically and medically stable for discharge to go home with home services. His labs and vital signs are stable. He will restart his home medications. He will take Eliquis for DVT prophylaxis and Percocet as needed for pain. The patient did suffer a bout of nausea and was vomiting after taking the Percocet on an empty stomach and will in the future take Percocet with food, which he has tolerated. He will continue to take Colace up to 3 times a day for constipation. He will follow up with Dr. Can in approximately 10 days for incision check and suture removal. He will have visiting home nurse services to help with medications and daily incision checks. He was instructed to go immediately to the ER should he develop chest pain or shortness of breath. If he develops fever, increasing pain or redness along the incision, he is to call the office immediately. PRASANNA AGUIAR [id number]/[facility] #: [id number] BHAVANI
--- NOTE | 2016-12-27 03:32 | OP ---
OPERATIVE REPORT: DATE OF : 40 DATE OF OPERATION: 12/22/16 SURGEON: Alyssa Can MD. DENTAL AMALGAM PROCESSOR: PRASANNA Mcdaniel and Carline Bales ANESTHESIA: General interscalene block. PRE-OP DIAGNOSIS: Left shoulder rotator cuff arthropathy. POST-OP DIAGNOSIS: Left shoulder rotator cuff arthropathy. OPERATIVE PROCEDURE: Left shoulder open biceps tenodesis and left shoulder reverse arthroplasty. ESTIMATED BLOOD LOSS: 150 cc. COMPLICATIONS: The largest stem size was approximately around 1 mm, too small and therefore bone graft was used to augment this and impacted into place to get a good purchase. OUTPUT DRAIN: Drain x1. IMPLANTS: Tornier Aequalis flex stem size 80 with a low offset tray, size 6 mm poly and a size 25 x 30 baseplate with a size 42 Glenosphere head. INDICATIONS: Phi Pimentel is a 76-year-old male with progressive shoulder pain refractory to conservative management. He had pain with overhead activities and night pain. He has failed conservative management including injections and would like to proceed with reverse shoulder arthroplasty. Risks and benefits were discussed at length included, but are not limited to bleeding , infection, damage to nerves, vessels, surrounding structures, wound nonhealing , persistent pain, need for further surgery, scarring, stiffness, incomplete relief symptoms, risk of fracture, risks of anesthesia and need for further surgery. DESCRIPTION OF PROCEDURE: The patient was greeted in the preoperative area by the attending surgeon. Correct extremity was marked. Consent was confirmed. The patient was brought back to the operating suite where he was placed in supine position on the operating table. Prior to that, he underwent an interscalene nerve block by the anesthesiologist after which he was brought to the operating suite where he was placed above the [place] table. He then underwent general anesthesia, endotracheal intubation after which he was placed in lazy beach chair position and the left arm draped free. The left arm was prepped and draped in the usual sterile fashion beginning with chlorhexidine soap, scrub, and alcohol wipe and a final prep with ChloraPrep. After appropriate surgical pause indicating side, site, and procedure, administration of antibiotic, a deltopectoral incision was made sharply with a 15 blade. The soft tissue was carefully dissected to expose the subcutaneous tissues. The cephalic vein was identified and the deltopectoral nerve was identified and the cephalic vein was retracted laterally with a [place] retractor. The subpectoral fascia was identified and I then carefully incised the lateral aspect of the short head of the biceps that was identified and carefully dissected free. The subscapularis was also identified as very large and inflamed tendinopathic biceps tendon was identified. The first proximal centimeter of the pec tendon was released and the biceps was then tenodesed using a heavy nonabsorbable suture. The biceps was then cut proximal to this. The dissection was taken proximally, the subscap was identified and carefully released in a subscap peel fashion. This was then tagged as a traction stitch. There is obvious full thickness tearing of supraspinatus tendon with the first half of the infraspinatus. The superior and middle glenohumeral ligaments were then released using a curved Ventura scissors. The shoulder was then gently dislocated and brought through the wound. A neck cut was made freehand using a sagittal saw. The canal finder was then used to find the canal. The sounders were then used, the size 8 sounder was found to pass without any difficulty through the shaft. At this point, there was concern for capacious canal. Reaming again, beginning sequentially with the guide arm slightly 20 degrees of retroversion, a size 7 was found to easily be impacted. At this point, an extraction plate was placed because there was again concern for a capacious canal. The traction plate was placed and attention was directed to the glenoid. The glenoid was then assessed using a posterior retractor. The Earl as well as the glenoid neck retractor soft tissues were carefully removed. The arthritis had an unusual appearance, which appear more synovitic and there were areas of synovitis all throughout the shoulder. The superior and anterior labrum were then removed using a electrocautery device. The soft tissues were carefully dissected with attention placed upon this and a needle-tip Bovie was then used to release inferiorly about the glenoid. Once this was done, the curette was used to remove any of the remaining cartilage in which there was minimal changes, as there were grade 4 changes to the glenoid as well as the humeral head. The guidewire was placed with 0 degree offset inferiorly in the glenoid neck. The size 25 mm reamer was used to ream away the bone. The size 36 footprint reamer was then used as well to make sure that there was no area of impingement for Glenosphere placement. At this point, the 8 mm drill bit was used to drill over the previously placed guidewire and then a 6.5 mm drill was used to drill the length of the glenoid. The appropriate length glenoid baseplate, which is 25 x 30 mm was then placed and secured with good purchase. Three extra locking screws were placed in variable angles for extra purchase. The size 36 lateralized head was then placed. Attention was directed back to the humeral portion to attempt trailing because of the humeral stem. There was a significant amount of bleeding and thus an intraop xray was ordered to confirm no humerus fracture. A size 8 trial stem was then placed with a good purchase. It was then trialed and found to be loose again. After dislocating it, decision was made to put the final Glenosphere implants. The size 36 mm Glenosphere set screw malfunctioned and there was no other 36 head available. Therefore, a size 42 Glenosphere was chosen and it was impacted in position with a good purchase and the screws were secured using a set screw. The attention was directed to the humerus again and a final implant was chosen. 10 cc of bone chips and allografts were then morselized and packed around the metaphyseal area as well as along the stem. The stem was then prepared in the back table by the attending surgeon penny wallis. The final implants were packed into position with excellent purchase. There is no evidence of destabilization and this was gently relocated and placed through range of motion. He was able to be forward flexed to 145, abducted to about 90, externally rotated to about 35. The wounds were copiously irrigated with sterile saline. Prior to the humeral impaction, the cortex was drilled unicortical to pass the #5 Ethibond sutures. This was then placed in a horizontal mattress configuration. After the following implants were impacted, the wound was then irrigated and the subscap was a closed with a horizontal mattress configuration. The wounds was copiously irrigated and intraarticular drain was then placed and then the wounds were irrigated again. The deltopectoral fascia was closed with a #2 Ti- Cron sutures. The cephalic vein was stretched and required suture ligation. The skin was closed in layers with 2-0 Vicryl for subcutaneous tissue and 3-0 Monocryl. Sterile dressings were applied. A Cryo/Cuff as well as an UltraSling with no abduction pillow was placed. He was awoken from anesthesia and transferred to PACU in stable condition. POSTOPERATIVE PLAN: He will be nonweightbearing with no range of motion of the shoulder. We will check postoperative images in the PACU. I will see the patient back in 10 to 14 days postoperatively. He will be admitted for 1 to 2 days depending on his pain and blood count. DVT prophylaxis was considered, but deferred due to no previous personal or family history. I will see the patient in 10 to 14 days. [id number]/[facility] #: [id number] MTDD
== END 2016-12-24 17:55 | disposition home or self-care (01) | DRG 483 ==
LOC: AA 12-22 06:05 → SSU 12-22 19:56
PROVIDERS: ADMIT Orthopaedic Surgery; ATTEND Orthopaedic Surgery
PROC: 0RRK00Z Replacement of Left Shoulder Joint with Reverse Ball and Socket Synthetic Substitute, Open Approach (ICD-10-PCS; 2016-12-22)
PROC: 30233N1 Transfusion of Nonautologous Red Blood Cells into Peripheral Vein, Percutaneous Approach (ICD-10-PCS; principal; 2016-12-22 07:30)
DX: M19.012 Primary osteoarthritis, left shoulder (principal); I42.8 Other cardiomyopathies; D68.52 Prothrombin gene mutation; G20 Parkinson's disease; I50.9 Heart failure, unspecified; I48.0 Paroxysmal atrial fibrillation; J44.9 Chronic obstructive pulmonary disease, unspecified; N40.0 Benign prostatic hyperplasia without lower urinary tract symptoms; Z79.01 Long term (current) use of anticoagulants; K59.00 Constipation, unspecified; Z83.3 Family history of diabetes mellitus; Z82.49 Family history of ischemic heart disease and other diseases of the circulatory system; Z87.891 Personal history of nicotine dependence; J42 Unspecified chronic bronchitis; Z80.3 Family history of malignant neoplasm of breast; Z80.0 Family history of malignant neoplasm of digestive organs; M81.0 Age-related osteoporosis without current pathological fracture; D50.9 Iron deficiency anemia, unspecified; G89.29 Other chronic pain; M54.5 Low back pain
CPT/HCPCS: 36415; 80048; 83735; 85014; 85018; 87070; 87205; A9270-GY; J0171; J0330; J0690; J0780; J1100; J2250; J2270; J2405; J2704; J3010; J3475

== ENCOUNTER 2018-10-18 05:37 | Inpatient (IN) | payer MEDICARE ==
--- NOTE | 2018-10-04 11:56 | HP ---
AMENDED REPORT NOW INCLUDES DESIGNATED COSIGNER HISTORY AND PHYSICAL: DATE OF ADMISSION/SURGERY: 10/18/18 DATE OF OFFICE VISIT: 10/03/18 SURGEON: Alyssa Can MD.* (DICTATED BY PRASANNA OCHOA) PROCEDURE: Right total reverse shoulder arthroplasty. CHIEF COMPLAINT: Right shoulder pain. HISTORY OF PRESENT ILLNESS: Mr. Pimentel is a 78-year-old gentleman with continued complaints of right shoulder pain secondary to severe osteoarthritis. He has failed conservative treatment and elected to proceed with a right reverse total shoulder arthroplasty. 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 PAST SURGICAL HISTORY: Left shoulder replacement, hernia repair, ORIF of the left hip, and pacemaker placement. CURRENT MEDICATIONS: 1. Pulmicort inhaler twice daily. 2. Ventolin inhaler 2 puffs 4 times a day as needed. 3. Amiodarone 200 mg 1 tab daily. 4. Carvedilol 3.125 mg twice a day. 5. Eliquis 5 mg twice a day. 6. Finasteride 5 mg once a day. 7. Tamsulosin 0.4 mg daily. 8. Magnesium 250 mg a day. 9. Tylenol as needed. 10. Spironolactone 25 mg, half a tab daily. 11. Irbesartan 75 mg a day. ALLERGIES: No known drug allergies. FAMILY HISTORY: Cancer and diabetes. SOCIAL HISTORY: This 78-year-old gentleman lives with his . He is a former smoker, quit 35 years ago. He denies use of drugs or alcohol. REVIEW OF SYSTEMS: A complete 14-point review of systems was reviewed with the patient, positive for asthma and a clotting disorder called heterozygous prothrombin [id number] mutation PHYSICAL EXAMINATION GENERAL: He is well developed and well nourished, in no acute distress. VITAL SIGNS: He stands 71 inches tall, weighs 212 pounds. Blood pressure is 98 /58, heart rate 60. HEENT: Normocephalic, atraumatic. NECK: Supple. No palpable lymph nodes. PULMONARY: The lungs are clear to auscultation bilaterally. CARDIO: Regular rate and rhythm. Strong S1 and S2. ABDOMEN: Soft, nontender, and nondistended. MUSCULOSKELETAL: Right upper extremity skin is intact. There are no open wounds or abrasions. He is able to forward flex to 150 degrees and abduct to 140 degrees. He is able to externally rotate 40 degrees. He has full flexion and extension of the elbow, wrist, and hand. He has intact sensation. He has a 2+ distal pulse. NEUROLOGICAL: He is alert and oriented x3. ASSESSMENT AND PLAN: Mr. Pimentel is a 78-year-old gentleman with continued complaints of right shoulder pain secondary to end-stage osteoarthritis. He has failed conservative treatment and elected to proceed with a right reverse total shoulder arthroplasty. This is scheduled on 10/18/[address] Can discussed the risks and benefits of the surgery at today's visit and all of his questions were answered. He will follow up with her 2 weeks after the surgery. PRASANNA OCHOA [id number]/[facility] #: [id number] MTDFelisa
[~2018-10-18 05:37] MED LIST: Buffered Lidocaine 1% SYRIN* 1 ML/SYRINGE INTRADERM ONE
--- OUTSIDE RECORDS SUMMARY | 2018-10-18 05:41 | XMS REPORT | Continuity of Care Document ---
:1940 External Reference #:[id number] Author Name Danna Costa Care Team Providers Name Role Phone Cristy Weber MD Primary Care Physician Unavailable Payers Date Identification Numbers Payment Provider Subscriber Policy Number: [id number] Medicare Chaim Pedroza Margarito YOUNG PayID: [id number] [address] [place] [address] Policy Number: [id number] [facility] Chaim Pedroza Margarito YOUNG PayID: [id number] [address] [place] [address] Expires: 2012 Policy Number: [id number] [employer] Chaim Pedroza Margarito YOUNG PayID: [id number] [address] [address] EMILY Crawford [id number] Advance Directives Type Date Description Status Comment Other Directive 12/21/2017 Health Care Proxy Current and Verified Problems Active Problems Provider Date Iron deficiency anemia Owen Richmond M.D.,FACP Onset: 12/03/2015 Note: FOBT positive Biventricular automatic implantable Owen Richmond M.D.,FACP Onset: 02/15 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 Onset: 12/29/2012 Note: non-ischemic, EF 20% range Paroxysmal ventricular tachycardia Jeremy Valadez M.D. 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 Onset: 12/13/2016 Prosthetic arthroplasty of shoulder Alyssa Can MD Onset: 01/28/2017 Moderate persistent asthma Owen Richmond M.D.,FACP Onset: 02/09/2017 Note: on PFTs Benign prostatic hypertrophy without Owen Richmond M.D.,FACP Onset: outflow obstruction Inactive Problems Premature beats Jeremy Valadez M.D. Onset: 12/29/2012 Inactive: 10/14/2014 Atrial fibrillation Owen Richmond M.D.,FACP Onset: 10/14/2014 Inactive: 09/02/2015 Sprain of shoulder and upper arm Alyssa Can MD Onset: 02/24/2016 Inactive: 06/18/2016 Chronic bronchitis Owen Richmond M.D.,FACP Onset: 03/08/2014 Inactive: 02/09/2017 Vertigo of central origin Ritesh Corona M.D. Onset: 12/13/2016 Inactive: 02/15/2018 Resolved Problems Localized, secondary osteoarthritis of the Alden Novoa M.D. 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 Cigarette Use Quit 35 Years Ago ETOH Use 01/24/2017 Denies alcohol use Tobacco Use Start: Unknown End: Patient is a former Unknown smoker Recreational Drug Use Denies Drug Use Smoking Status Reviewed: 10/06/18 Patient is a former smoker Exercise Type/Frequency Exercises regularly walks 1-2 miles everyday Allergies, Adverse Reactions, Alerts Description No Known Drug Allergies Medications Active Medications SIG Qnty Indications Ordering Date Provider Shingrix 0.5 milliliters 2units Owen Hendrickson 02/15/2018 intramuscular now and Nimesh Richmond,FACP 50mcg/0.5ML 2-3 months later Suspension Rec repeat Pulmicort Flexhaler 2 puffs twice daily. 1units Owen Hendrickson 02/25/2017 rinse mouth after Nimesh Richmond,FACP 90mcg/Act Aerosol use. ( taking as needed ) Recliner Disp 1 recliner 1units M19.012 Alyssa Can, 12/09/2016 S46.012A Ventolin HFA 2 puffs by mouth 18units J44.9 Owen Richmond, 07/12/2016 108(90Base) four times a day Nimesh,FACP mcg/Act Aerosol as needed Amiodarone HCL 1 tab by mouth 90tabs Jeremy Valadez, 06/23/2016 200mg Tablets every day. M.DChristy Carvedilol Take 1 Tablet By 180tabs Owen Richmond, 06/18/2016 3.125mg Tablets Mouth Twice Daily Nimesh,FACP Eliquis 1 by mouth twice a 180tabs Jeremy Valadez, 01/23/2015 5mg Tablets day M.DChristy Finasteride 1 po qd 90tabs Gus Serrano MD 5mg Tablets Tamsulosin HCL 1 po qd 30caps Gus Serrano MD 0.4mg Capsules Magnesium 1 daily Unknown 250mg Tylenol 1 tablet po daily Unknown 325mg Tablets Spironolactone Take 1/2 45tabs Owen Richmond, 25mg Tablets (One-Half) Tablet Nimesh,FACP By Mouth Once Daily Irbesartan 1 by mouth every Unknown 75mg Tablets day C-Pap Use as directed Unknown daily History Medications Irbesartan 1/2 tab by mouth 45tabs Jeremy Hendrickson 05/24/2018 - 150mg every day Nimesh Valadez 07/20/2018 Tablets Irbesartan 1 by mouth every 90tabs Jeremy Hendrickson 11/07/2017 - 75mg day Brand, Nimesh 05/24/2018 Tablets Candesartan 1 by mouth every 30tabs Jeremy Hendrickson 11/01/2017 - Cilexetil day Rory, Nimesh 11/07/2017 16mg Tablets Tramadol HCL 1 tab by mouth 60tabs M54.16 Mary 03/16/2017 - 50mg three times a Stacy, OBSTETRICS TECHNICIAN 07/26/2018 Tablets day as needed for pain Arnuity Ellipta 1 puff inhaled 30units R06.02 Owen Hendrickson 02/09/2017 - every day Nimesh Richmond,FACP 02/25/2017 100mcg/Act Aerosol J44.1 Valsartan take one tablet 90tabs Jeremy Hendrickson 01/24/2017 - 40mg Tablets by mouth once Nimesh Valadez 12/21/2017 daily ( takin 1/2 tablet po daily ) Ondansetron HCL 4mg every24 hours 14tabs Alyssa Can, 12/24/2016 - 4mg as needed for 07/19/2017 Tablets nausea Percocet 1 tab by mouth q 10tabs Alyssa Can, 12/17/2016 - 5-325mg 12 hrs as needed 01/24/2017 Tablets pain Meclizine HCL 07/26/18 reports 60tabs H81.43 Lenore 12/13/2016 - 12.5mg not taking 1-2 [place]ara, 07/06/2018 Tablets tab two times a M.D. day as needed Oxycodone-Acetaminoph 1-2 tabs by mouth 90tabs Alyssa Can, 12/09/2016 - en every 4-6 hours 01/24/2017 5-325mg Tablets as needed for post op pain. Do not fill until 12/20/16 Docusate Sodium Take 1 po three 60tabs Alyssa Can, 12/09/2016 - 100mg times a day as 07/19/2017 Tablets needed for constipation. Do not fill until 12/20/16. Diazepam 1 tab 1 hour 4tabs Owen Hendrickson 10/13/2016 - 5mg Tablets prior to [place], 01/20/2017 procedure, august Nimesh,FACP repeat x1 in 1 hour if no effect Valsartan 1/2 tab a day 45tabs Owen Hendrickson 06/18/2016 - 80mg Tablets (correction) [place], 01/24/2017 MLyndon,FACP Oxycodone-Acetaminoph 1 tabs by mouth 20tabs Alyssa Can, 03/18/2016 - en every 12 hours as MD 12/09/2016 5-325mg Tablets needed for pain Diazepam 1 tab 1 hr prior 4tabs Owen Hendrickson 03/05/2016 - 5mg Tablets to procedure, august Basilio, 06/18/2016 repeat X1 in 1 hr M.Emeka,FACP if no effect Tramadol HCL 1 tab twice a day 60tabs Alyssa Can, 03/03/2016 - 50mg as needed for MD 06/18/2016 Tablets pain Iferex 150 1 by mouth qod 60caps Owen Hendrickson 12/03/2015 - 150mg Basilio, 07/19/2017 Capsules Nimesh,FACP Naproxen 1/1-2 by mouth in 30tabs Owen Hendrickson 09/02/2015 - 500mg Tablets evening as needed Basilio, 10/18/2015 Nimesh,FACP Doxycycline Hyclate 1 tab by mouth 14tabs J44.1 Owen Hendrickson 03/18/2015 - twice a day for [place], 03/25/2015 100mg Tablets 1wks Nimesh,FACP Econazole Nitrate topical, as 30g Owen Hendrickson 11/27/2014 - 1% needed [place], 10/18/2015 Cream Nimesh,FACP Spiriva Respimat 2 puffs inhaled 12gm J44.9 Owen Hendirckson 10/29/2014 - daily ( taking 1 [place], 01/24/2017 2.5mcg/Act Aerosol puff daily ) Nimesh,FACP Xarelto 1 by mouth every 30tabs Jeremy Hendrickson 10/01/2014 - 20mg Tablets day Brand, Nimesh 01/23/2015 Spiriva Handihaler 1 inhalation po 3mon 491.20 Owen Hendrickson 03/08/2014 - qam [place], 03/08/2014 18mcg Capsules M.DChristy,FACP Ventolin HFA 2 puffs by mouth 1units 491.20 Owen Hendrickson 03/08/2014 - four times a day [place], 03/08/2014 108(90Base) mcg/Act as needed M.DChristy,FACP Aerosol Tudorza Pressair 1 puff twice a 180units 491.20 Anup Chambers, 03/08/2014 - day OBSTETRICS TECHNICIAN 10/29/2014 400mcg/Act Aerosol Proair HFA 2 puffs by mouth 1units J44.9 Owen Hendrickson 03/08/2014 - 108(90Base) every 4 hours as Basilio, 07/12/2016 mcg/Act Aerosol needed M.Emeka,FACP Triamcinolone apply twice a day 15gm 709.8 Anup Chambers, 01/15/2014 - Acetonide to affected area OBSTETRICS TECHNICIAN 03/18/2015 0.1% Cream Vitamin D3 High 1 po qd 30caps Owen Hendrickson 09/20/2013 - Potency [place], 10/18/2015 1000Unit M.DChristy,FACP Capsules Atenolol 1 tab by mouth 90tabs Jeremy Hendrickson 01/05/2013 - 50mg Tablets every day Nimesh Valadez 11/26/2014 Robaxin-750 1-2 q8h prn 40tabs Saulo Barbosa 08/06/2010 - 750mg muscle spasm Nimesh Moffett 03/07/2013 Tablets Lyrica 1 po bid 60caps Saulo Barbosa 03/30/2010 - 150mg Capsules Nimesh Moffett 03/08/2013 Multivitamins 1 capsule daily 30caps Unknown - Capsules 07/19/2017 Aspirin 1 po qd Unknown - 81mg Chewtabs 12/16/2014 Tylenol Extra prn 100tabs Unknown - Strength 10/14/2014 500mg Tablets Ibuprofen as needed 100tabs Unknown - 200mg Tablets 10/14/2014 Aleve 1 by mouth twice 60caps Unknown - 220mg Capsules a day as needed 03/08/2014 Healthy Skin And Unknown - Nails 10/14/2014 Tumeric Unknown - 10/14/2014 Glucosamine Unknown - Chondroitin 1500 11/13/2015 Complex Stone Free Unknown - 10/14/2014 Ibu Sleep Aide Unknown - 10/14/2014 Calm 1 large tsp in Unknown - Tea warm water. prn 07/19/2017 Multaq 1 by mouth twice 180tabs Jeremy Hendrickson - 400mg Tablets a day Nimesh Valadez 07/05/2016 Acetaminophen 2 tablets every 6 Unknown - 500mg hours as needed 09/02/2016 Tablets for pain Medications Administered in Office Medication SIG Qnty Indications Ordering Provider Date Triamcinolone (Kenalog) Alyssa Can MD 02/24/2016 Injection Depomedrol 80MG Alden Novoa M.D. 01/20/2015 Injection Depomedrol 80MG Alden Novoa M.D. 03/12/2014 Injection Depomedrol 80MG Alden Novoa M.D. 11/27/2013 Injection Depomedrol 40MG Gabriel Dickinson, 11/20/2009 Injection R.S.A.-O Immunizations CPT Code Status Date Vaccine Reaction Lot # [id number] Given 12/21/2017 Influenza Virus Vaccine, [id number] Quadrivalent, Split, Preservative Free 58665 Given 01/24/2017 Influenza Virus Vaccine, no immediate reaction, [id number] Quadrivalent, Split, pt tolerated well Preservative Free 09129 Given 03/09/2016 Influ Virus Vaccine, no immediate reaction [id number] Quadrivalent, Split Virus, noted .. .[place] [address] Given 03/18/2015 Pneumonia Vaccine [id number] 21122 Given 02/26/2015 Influenza Virus Vaccine, [id number] Quadrivalent, Split, Preservative Free 83229 Given 03/08/2014 Pneumococcal Conjugate [id number] Vaccine 13 Valent For Intramuscular Use 41197 Given 01/15/2014 Influenza Virus Vaccine, [id number] Quadrivalent, Split, Preservative Free Vital Signs Date Vital Result Comment 10/06/2018 12:07pm Height 71 inches 5'11" Weight 214.00 lb with shoes Heart Rate 61 /min BP Systolic 140 mmHg Rue reg cuff Sit BP Diastolic 90 mmHg Rue reg cuff Sit BP Systolic Sitting 130 mmHg Rue reg cuff Sit BP Diastolic Sitting 80 mmHg Rue reg cuff Sit BP Systolic Standing 102 mmHg Lue reg cuff BP Diastolic Standing 70 mmHg Lue reg cuff O2 % BldC Oximetry 97 % at room air BMI (Body Mass Index) 29.8 kg/m2 Ejection Fraction 25-30% date 12/14/17 ECHO 10/04/2018 1:24pm Height 71 inches 5'11" Weight 217.00 lb Heart Rate 59 /min BP Systolic Sitting 108 mmHg Lue large cuff BP Diastolic Sitting 64 mmHg Lue large cuff Respiratory Rate 14 /min O2 % BldC Oximetry 96 % BMI (Body Mass Index) 30.3 kg/m2 10/03/2018 9:35am Height 71 inches 5'11" Weight 212.00 lb Heart Rate 60 /min BP Systolic 98 mmHg BP Diastolic 58 mmHg Body Temperature 99.7 F Pain Level 3 BMI (Body Mass Index) 29.6 kg/m2 09/28/2018 11:30am Height 71 inches 5'11" Weight 212.00 lb Heart Rate 60 /min BP Systolic 100 mmHg BP Diastolic 62 mmHg Body Temperature 97.9 F O2 % BldC Oximetry 96 % BMI (Body Mass Index) 29.6 kg/m2 08/18/2018 12:02pm Height 71 inches 5'11" Weight 214.00 lb with shoes Heart Rate 61 /min BP Systolic Sitting 118 mmHg lue reg cuff BP Diastolic Sitting 74 mmHg lue reg cuff BP Systolic Standing 120 mmHg lue reg cuff BP Diastolic Standing 72 mmHg lue reg cuff Respiratory Rate 16 /min BMI (Body Mass Index) 29.8 kg/m2 Ejection Fraction 25-30% 12/14/17 08/15/2018 1:54pm Height 71 inches 5'11" Weight 210.00 lb Heart Rate 60 /min BP Systolic Sitting 128 mmHg BP Diastolic Sitting 82 mmHg Respiratory Rate 12 /min O2 % BldC Oximetry 95 % BMI (Body Mass Index) 29.3 kg/m2 08/08/2018 11:53am Height 71 inches 5'11" Weight 212.00 lb Heart Rate 63 /min BP Systolic 122 mmHg BP Diastolic 70 mmHg Body Temperature 98.2 F Pain Level 2 BMI (Body Mass Index) 29.6 kg/m2 08/05/2018 1:02pm Height 71 inches 5'11" Weight 213.00 lb Heart Rate 62 /min BP Systolic Sitting 114 mmHg BP Diastolic Sitting 70 mmHg Respiratory Rate 16 /min O2 % BldC Oximetry 96 % on Ra BMI (Body Mass Index) 29.7 kg/m2 Neck Circumference in inches 16.5 07/26/2018 11:04am Height 71 inches 5'11" Weight 213.00 lb Heart Rate 59 /min BP Systolic Sitting 123 mmHg BP Diastolic Sitting 78 mmHg Body Temperature 96.9 F O2 % BldC Oximetry 98 % BMI (Body Mass Index) 29.7 kg/m2 07/20/2018 10:21am Height 71 inches 5'11" Weight 210.00 lb with shoes Heart Rate 92 /min BP Systolic Sitting 110 mmHg lue reg cuff BP Diastolic Sitting 80 mmHg lue reg cuff BP Systolic Standing 118 mmHg lue reg cuff BP Diastolic Standing 90 mmHg lue reg cuff Respiratory Rate 18 /min BMI (Body Mass Index) 29.3 kg/m2 Ejection Fraction 25-30% date 12/14/17 ECHO 07/18/2018 2:20pm Height 71 inches 5'11" Weight 213.00 lb Heart Rate 60 /min BP Systolic 104 mmHg BP Diastolic 62 mmHg Body Temperature 97.1 F Pain Level 6 BMI (Body Mass Index) 29.7 kg/m2 03/15/2018 2:57pm Height 71 inches 5'11" Weight 213.00 lb with shoes Heart Rate 60 /min BP Systolic Sitting 120 mmHg Lue reg cuff BP Diastolic Sitting 90 mmHg Lue reg cuff BP Systolic Standing 128 mmHg Lue reg cuff BP Diastolic Standing 86 mmHg Lue reg cuff Respiratory Rate 16 /min BMI (Body Mass Index) 29.7 kg/m2 Ejection Fraction 25-30% date 12/14/17 echo 02/15/2018 1:03pm Height 71 inches 5'11" Weight 211.00 lb Heart Rate 55 /min BP Systolic Sitting 130 mmHg BP Diastolic Sitting 80 mmHg Body Temperature 96.2 F O2 % BldC Oximetry 98 % BMI (Body Mass Index) 29.4 kg/m2 12/21/2017 2:32pm Height 72 inches 6'0" Weight 211.00 lb Heart Rate 60 /min BP Systolic Sitting 110 mmHg BP Diastolic Sitting 78 mmHg Body Temperature 96.8 F O2 % BldC Oximetry 97 % BMI (Body Mass Index) 28.6 kg/m2 12/02/2017 11:16am Height 72 inches 6'0" Weight 213.00 lb Heart Rate 64 /min BP Systolic Sitting 142 mmHg Lue reg cuff BP Diastolic Sitting 82 mmHg Lue reg cuff BMI (Body Mass Index) 28.9 kg/m2 Ejection Fraction 25-30% Echo Echo 05/26/17 07/25/2017 2:01pm Weight 214.00 lb Heart Rate 58 /min BP Systolic Sitting 124 mmHg BP Diastolic Sitting 56 mmHg Body Temperature 96.5 F O2 % BldC Oximetry 98 % 07/21/2017 1:08pm Height 72 inches 6'0" Weight 205.00 lb BP Systolic 124 mmHg BP Diastolic 78 mmHg Respiratory Rate 20 /min Pain Level 0 BMI (Body Mass Index) 27.8 kg/m2 07/20/2017 2:46pm Height 72 inches 6'0" Weight 216.00 lb Heart Rate 50 /min BP Systolic Sitting 108 mmHg lue reg cuff BP Diastolic Sitting 64 mmHg lue reg cuff BP Systolic Standing 110 mmHg lue reg cuff BP Diastolic Standing 62 mmHg lue reg cuff Respiratory Rate 16 /min Pain Level 0 BMI (Body Mass Index) 29.3 kg/m2 Ejection Fraction 33% 01/20/2017 echo21 03/24/2017 9:08am Height 72 inches 6'0" Weight 205.00 lb BP Systolic 124 mmHg BP Diastolic 68 mmHg Respiratory Rate 20 /min Pain Level 0 BMI (Body Mass Index) 27.8 kg/m2 03/16/2017 10:23am Weight 214.25 lb Heart Rate 51 /min BP Systolic Sitting 120 mmHg BP Diastolic Sitting 78 mmHg Body Temperature 95.8 F O2 % BldC Oximetry 95 % 01/28/2017 2:00pm Height 72 inches 6'0" Weight 205.00 lb BP Systolic 122 mmHg BP Diastolic 70 mmHg Respiratory Rate 18 /min Body Temperature 97.5 F Pain Level 2 BMI (Body Mass Index) 27.8 kg/m2 01/24/2017 3:48pm Height 72 inches 6'0" Weight 205.38 lb Heart Rate 65 /min BP Systolic 118 mmHg BP Diastolic 70 mmHg Body Temperature 97.4 F O2 % BldC Oximetry 99 % BMI (Body Mass Index) 27.9 kg/m2 01/04/2017 11:59am Heart Rate 56 /min BP Systolic Sitting 100 mmHg BP Diastolic Sitting 70 mmHg Body Temperature 97.1 F 12/16/2016 9:50am Height 72 inches 6'0" Weight 204.00 lb Heart Rate 59 /min BP Systolic Sitting 108 mmHg BP Diastolic Sitting 68 mmHg O2 % BldC Oximetry 98 % BMI (Body Mass Index) 27.7 kg/m2 12/13/2016 1:33pm Height 72 inches 6'0" Weight 205.00 lb Heart Rate 56 /min BP Systolic 118 mmHg BP Diastolic 64 mmHg Body Temperature 96.9 F O2 % BldC Oximetry 96 % BMI (Body Mass Index) 27.8 kg/m2 12/09/2016 9:13am Height 72 inches 6'0" Weight 205.00 lb BP Systolic 118 mmHg BP Diastolic 72 mmHg Respiratory Rate 16 /min Body Temperature 96.7 F Pain Level 5 BMI (Body Mass Index) 27.8 kg/m2 12/08/2016 11:26am Height 71.5 inches 5'11.50" Weight 204.00 lb with shoes Heart Rate 48 /min BP Systolic Sitting 108 mmHg Rue reg cuff BP Diastolic Sitting 66 mmHg Rue reg cuff BP Systolic Standing 110 mmHg Rue reg cuff BP Diastolic Standing 80 mmHg Rue reg cuff Respiratory Rate 16 /min BMI (Body Mass Index) 28.1 kg/m2 Ejection Fraction 25-30% date 08/24/16 ECHO 09/03/2016 10:31am Height 71.5 inches 5'11.50" Weight 205.00 lb without shoes Heart Rate 50 /min BP Systolic Sitting 130 mmHg Rue reg cuff BP Diastolic Sitting 76 mmHg Rue reg cuff BP Systolic Standing 130 mmHg Rue reg cuff BP Diastolic Standing 80 mmHg Rue reg cuff Respiratory Rate 16 /min BMI (Body Mass Index) 28.2 kg/m2 Ejection Fraction 25-30% date 08/25/16 ECHO 07/27/2016 1:08pm Height 72 inches 6'0" Weight 211.00 lb w/ shoes Heart Rate 46 /min reg BP Systolic Sitting 114 mmHg Lue, reg cuff BP Diastolic Sitting 76 mmHg Lue, reg cuff BP Systolic Standing 114 mmHg Lue BP Diastolic Standing 76 mmHg Lue Respiratory Rate 16 /min BMI (Body Mass Index) 28.6 kg/m2 Ejection Fraction 25% as of 04/28/16 echo 06/18/2016 3:18pm Height 72 inches 6'0" Weight 208.50 lb with shoes Heart Rate 70 /min BP Systolic Sitting 110 mmHg Rue reg cuff BP Diastolic Sitting 74 mmHg Rue reg cuff BP Systolic Standing 112 mmHg Rue reg cuff BP Diastolic Standing 78 mmHg Rue reg cuff Respiratory Rate 17 /min BMI (Body Mass Index) 28.3 kg/m2 Ejection Fraction 25% 04/28/2016-echo 06/18/2016 1:08pm Height 72 inches 6'0" Weight 208.25 lb Heart Rate 72 /min BP Systolic Sitting 108 mmHg BP Diastolic Sitting 78 mmHg Body Temperature 97.3 F O2 % BldC Oximetry 97 % BMI (Body Mass Index) 28.2 kg/m2 03/18/2016 1:19pm Height 72 inches 6'0" Weight 209.00 lb Pain Level 2 BMI (Body Mass Index) 28.3 kg/m2 03/09/2016 1:54pm Weight 209.00 lb Heart Rate 58 /min BP Systolic Sitting 122 mmHg BP Diastolic Sitting 84 mmHg Respiratory Rate 15 /min Body Temperature 97.9 F O2 % BldC Oximetry 97 % 02/24/2016 3:04pm Height 72 inches 6'0" Weight 215.00 lb Heart Rate 64 /min Respiratory Rate 16 /min Pain Level 7 BMI (Body Mass Index) 29.2 kg/m2 11/18/2015 1:24pm Height 72 inches 6'0" Weight 213.00 lb w/ shoes Heart Rate 60 /min BP Systolic Sitting 120 mmHg Lue, reg cuff BP Diastolic Sitting 66 mmHg Lue, reg cuff BP Systolic Standing 116 mmHg Lue BP Diastolic Standing 70 mmHg Lue Respiratory Rate 16 /min BMI (Body Mass Index) 28.9 kg/m2 Ejection Fraction 30-35% As of 09/12/14 echo 09/05/2015 2:12pm Height 72 inches 6'0" Weight 214.31 lb with shoes Heart Rate 62 /min BP Systolic Sitting 132 mmHg Ra reg cuff BP Diastolic Sitting 72 mmHg Ra reg cuff BP Systolic Standing 126 mmHg Ra reg cuff BP Diastolic Standing 70 mmHg Ra reg cuff Respiratory Rate 16 /min BMI (Body Mass Index) 29.1 kg/m2 Ejection Fraction 30-35% date 09/12/14 ECHO 09/02/2015 3:35pm Height 72 inches 6'0" Weight 212.00 lb Heart Rate 48 /min BP Systolic Sitting 124 mmHg BP Diastolic Sitting 82 mmHg Respiratory Rate 14 /min Body Temperature 97.8 F O2 % BldC Oximetry 97 % BMI (Body Mass Index) 28.7 kg/m2 03/21/2015 1:31pm Height 72 inches 6'0" Weight 216.00 lb with shoes BP Systolic Sitting 114 mmHg Ra, reg cuff BP Diastolic Sitting 66 mmHg Ra, reg cuff BP Systolic Standing 106 mmHg Ra BP Diastolic Standing 66 mmHg Ra Respiratory Rate 16 /min BMI (Body Mass Index) 29.3 kg/m2 Ejection Fraction 30-35% 09/12/14 03/21/2015 1:25pm Height 72 inches 6'0" 03/21/2015 1:16pm Height 72 inches 6'0" 03/18/2015 11:49am Height 72 inches 6'0" Weight 216.00 lb Heart Rate 62 /min BP Systolic 137 mmHg BP Diastolic 78 mmHg Body Temperature 97.0 F O2 % BldC Oximetry 97 % BMI (Body Mass Index) 29.3 kg/m2 01/20/2015 12:02pm Height 72 inches 6'0" Weight 215.00 lb BMI (Body Mass Index) 29.2 kg/m2 12/17/2014 1:54pm Height 72 inches 6'0" Weight 215.00 lb Heart Rate 64 /min BP Systolic Sitting 116 mmHg left arm, reg cuff BP Diastolic Sitting 80 mmHg left arm, reg cuff BP Systolic Standing 118 mmHg left arm, reg cuff BP Diastolic Standing 76 mmHg left arm, reg cuff Respiratory Rate 16 /min BMI (Body Mass Index) 29.2 kg/m2 Ejection Fraction 30-35% 09/12/14 10/28/2014 11:44am Height 72 inches 6'0" Weight 221.00 lb Pain Level 8 BMI (Body Mass Index) 30.0 kg/m2 10/25/2014 2:16pm Height 72 inches 6'0" Weight 214.00 lb no shoes Heart Rate 76 /min BP Systolic Sitting 108 mmHg LA, reg cuff BP Diastolic Sitting 74 mmHg LA, reg cuff BP Systolic Standing 102 mmHg LA BP Diastolic Standing 74 mmHg LA Respiratory Rate 14 /min BMI (Body Mass Index) 29.0 kg/m2 Ejection Fraction 30-35% 09/12/2014 10/14/2014 1:38pm Weight 216.00 lb Heart Rate 60 /min BP Systolic Sitting 111 mmHg BP Diastolic Sitting 73 mmHg Body Temperature 98.3 F O2 % BldC Oximetry 97 % 09/27/2014 3:06pm Height 72 inches 6'0" Weight 216.50 lb w/o shoes Heart Rate 48 /min irreg BP Systolic Sitting 90 mmHg Rue, reg cuff BP Diastolic Sitting 64 mmHg Rue, reg cuff BP Systolic Standing 92 mmHg Rue BP Diastolic Standing 62 mmHg Rue Respiratory Rate 18 /min BMI (Body Mass Index) 29.4 kg/m2 Ejection Fraction 30-35% as of 09/12/14 echo 03/12/2014 4:09pm Height 72 inches 6'0" Weight 221.00 lb Heart Rate 68 /min BMI (Body Mass Index) 30.0 kg/m2 03/08/2014 10:52am Height 72 inches 6'0" Weight 221.00 lb Heart Rate 49 /min BP Systolic Sitting 135 mmHg BP Diastolic Sitting 89 mmHg Body Temperature 96.7 F O2 % BldC Oximetry 96 % BMI (Body Mass Index) 30.0 kg/m2 01/15/2014 2:59pm Height 72 inches 6'0" Weight 220.00 lb Heart Rate 55 /min BP Systolic Sitting 117 mmHg BP Diastolic Sitting 72 mmHg Body Temperature 97.9 F O2 % BldC Oximetry 95 % BMI (Body Mass Index) 29.8 kg/m2 01/08/2014 2:25pm Height 72 inches 6'0" Weight 220.00 lb Heart Rate 68 /min BP Systolic 124 mmHg BP Diastolic 70 mmHg BMI (Body Mass Index) 29.8 kg/m2 11/27/2013 1:30pm Height 72 inches 6'0" Weight 220.00 lb Heart Rate 68 /min BP Systolic 140 mmHg BP Diastolic 84 mmHg BMI (Body Mass Index) 29.8 kg/m2 10/12/2013 2:15pm Height 72 inches 6'0" Weight 218.25 lb Heart Rate 56 /min BP Systolic Sitting 114 mmHg BP Diastolic Sitting 50 mmHg Body Temperature 96.6 F BMI (Body Mass Index) 29.6 kg/m2 09/13/2013 11:41am Height 72 inches 6'0" Weight 216.00 lb Heart Rate 44 /min BP Systolic Sitting 116 mmHg Ra reg cuff BP Diastolic Sitting 80 mmHg Ra reg cuff BP Systolic Standing 114 mmHg Ra BP Diastolic Standing 78 mmHg Ra Respiratory Rate 16 /min BMI (Body Mass Index) 29.3 kg/m2 09/12/2013 1:13pm Height 72.5 inches 6'0.50" Weight 215.00 lb Heart Rate 50 /min BP Systolic Sitting 112 mmHg BP Diastolic Sitting 70 mmHg BMI (Body Mass Index) 28.8 kg/m2 03/23/2013 2:37pm Height 72 inches 6'0" Weight 214.00 lb Heart Rate 44 /min BP Systolic Sitting 98 mmHg left arm, reg cuff BP Diastolic Sitting 56 mmHg left arm, reg cuff BP Systolic Standing 106 mmHg left arm, reg cuff BP Diastolic Standing 58 mmHg left arm, reg cuff Respiratory Rate 16 /min BMI (Body Mass Index) 29.0 kg/m2 12/29/2012 2:46pm Height 72 inches 6'0" Weight 217.00 lb Heart Rate 60 /min BP Systolic Sitting 124 mmHg Ra reg cuff BP Diastolic Sitting 78 mmHg Ra reg cuff BP Systolic Standing 128 mmHg Ra BP Diastolic Standing 80 mmHg Ra Respiratory Rate 18 /min BMI (Body Mass Index) 29.4 kg/m2 Results Test Date Facility Test Result H/L Range Note Urinalysis Profile 10/06/2018 [facility] Urine Color Yellow [address] [place] [address] [phone] Urine Appearance Clear Urine Specific [place] 1.013 N 1.010-1.030 Urine pH 6.0 N 5-9 Urine Urobilinogen Negative Negative Urine Ketones Negative Negative Urine Protein Negative Negative Urine Leukocytes Negative Negative Urine Blood Negative Negative Urine Nitrite Negative Negative Urine Bilirubin Negative Negative Urine Glucose Negative Negative Comp Metabolic Panel 10/06/2018 [facility] Sodium 139 mmol/L N 135-145 [address] [place] [address] [phone] Potassium 4.8 mmol/L N 3.5-5.0 Chloride 107 mmol/L N 101-111 Co2 Carbon Dioxide 28 mmol/L N 22-32 Anion Gap 4 mmol/L N 2-11 Glucose 89 mg/dL N 70-100 Blood Urea Nitrogen 21 mg/dL N 6-24 Creatinine 0.90 mg/dL N 0.67-1.17 BUN/Creatinine Ratio 23.3 High 8-20 Calcium 9.2 mg/dL N 8.6-10.3 Total Protein 6.5 g/dL N 6.4-8.9 Albumin 4.0 g/dL N 3.2-5.2 Globulin 2.5 g/dL N 2-4 Albumin/Globulin Ratio 1.6 N 1-3 Total Bilirubin 0.80 mg/dL N 0.2-1.0 Alkaline Phosphatase 53 U/L N 34-104 Alt 12 U/L N 7-52 Ast 17 U/L N 13-39 Egfr Non- 81.6 >60 Egfr 98.7 >60 1 Inr/Protime 10/06/2018 [facility] Inr 1.35 High 0.82-1.[address] [place] [address] [phone] Laboratory test 10/06/2018 [facility] Partial 40.1 High 26.0- 38.[address] [place] [address] Time PTT [phone] CBC Auto Diff 10/06/2018 [facility] White Blood 4.6 10^3/uL N 3.5-10.[address] [place] [address] [phone] Red Blood Count 3.79 10^6/uL Low 4.18-5.48 Hemoglobin 11.9 g/dL Low 14.0-18.0 Hematocrit 36 % Low 42-52 Mean Corpuscular Volume 94 fL N 80-94 Mean Corpuscular Hemoglobin 31 pg N 27-31 Mean Corpuscular HGB Conc 34 g/dL N 31-36 Red Cell Distribution Width 15 % N 10-15 Platelet Count 156 10^3/uL N 150-450 Mean Platelet Volume 9.1 fL N 7.4-10.4 Abs Neutrophils 2.7 10^3/uL N 1.5-7.7 Abs Lymphocytes 1.2 10^3/uL N 1.0-4.8 Abs Monocytes 0.5 10^3/uL N 0-0.8 Abs Eosinophils 0.1 10^3/uL N 0-0.6 Abs Basophils 0.0 10^3/uL N 0-0.2 Abs Nucleated RBC 0.0 10^3/uL Granulocyte % 58.8 % Lymphocyte % 26.4 % Monocyte % 10.7 % Eosinophil % 3.1 % Basophil % 1.0 % Nucleated Red Blood Cells % 0.1 Type & Screen 10/06/2018 [facility] Patient Blood Type O Positive [address] [place] [address] [phone] Antibody Screen NEGATIVE Cath Panel 07/20/2018 [facility] Partial 38.8 seconds High 26.0-36.[address] [place] [address] PTT [phone] CBC Auto 07/20/2018 [facility] White Blood 4.6 10^3/uL N 3.5- 10.[address] [place] [address] [phone] Red Blood Count 4.05 10^6/uL Low 4.18-5.48 Hemoglobin 12.6 g/dL Low 14.0-18.0 Hematocrit 38 % N 36-46 Mean Corpuscular Volume 93 fL N 80-94 Mean Corpuscular Hemoglobin 31 pg N 27-31 Mean Corpuscular HGB Conc 33 g/dL N 31-36 Red Cell Distribution Width 14 % N 10.5-15 Platelet Count 165 10^3/uL N 150-450 Mean Platelet Volume 9.2 fL N 7.4-10.4 Abs Neutrophils 2.7 10^3/uL N 1.5-7.7 Abs Lymphocytes 1.3 10^3/uL N 1.0-4.8 Abs Monocytes 0.4 10^3/uL N 0-0.8 Abs Eosinophils 0.1 10^3/uL N 0-0.6 Abs Basophils 0 10^3/uL N 0-0.2 Abs Nucleated RBC 0 10^3/uL Granulocyte % 59.0 % Lymphocyte % 28.9 % Monocyte % 9.5 % Eosinophil % 1.9 % Basophil % 0.7 % Nucleated Red Blood Cells % 0 Inr/Protime 07/20/2018 [facility] Inr 1.35 High 0.77-1.[address] [place] [address] [phone] Basic Metabolic 07/20/2018 [facility] Sodium 140 mmol/L N 135- [address] [place] [address] [phone] Potassium 4.4 mmol/L N 3.5-5.0 Chloride 108 mmol/L N 101-111 Co2 Carbon Dioxide 27 mmol/L N 22-32 Anion Gap 5 mmol/L N 2-11 Glucose 90 mg/dL N 70-100 Blood Urea Nitrogen 19 mg/dL N 6-24 Creatinine 0.90 mg/dL N 0.67-1.17 BUN/Creatinine Ratio 21.1 High 8-20 Calcium 8.9 mg/dL N 8.6-10.3 Egfr Non- 81.8 >60 Egfr 99.0 >60 3 Laboratory 07/20/2018 [facility] TSH (Thyroid Stim 2.00 N 0.34 -5.[address] H[address]) mcIU/[place] [address] [phone] Laboratory 03/21/2018 [facility] Occult Blood pos x3 test finding Stool Diagnostic Lipid Profile 02/16/2018 [facility] Triglycerides 48 mg/dL 4 (Trig/Chol/HDL DRIVE ) [place] [address] [phone] Cholesterol 184 mg/dL 5 HDL Cholesterol 70.6 mg/dL 6 LDL Cholesterol 104 mg/dL 7 Laboratory test 02/16/2018 [facility] TSH (Thyroid 1.97 mcIU/mL N 0.34-5.[address] Stim [place]orm) [place] [address] [phone] Basic Metabolic 02/16/2018 [facility] Sodium 140 mmol/L N 135- [address] [place] [address] [phone] Potassium 4.1 mmol/L N 3.5-5.0 Chloride 107 mmol/L N 101-111 Co2 Carbon Dioxide 27 mmol/L N 22-32 Anion Gap 6 mmol/L N 2-11 Glucose 90 mg/dL N 70-100 Blood Urea Nitrogen 18 mg/dL N 6-24 Creatinine 0.89 mg/dL N 0.67-1.17 BUN/Creatinine Ratio 20.2 High 8-20 Calcium 8.9 mg/dL N 8.6-10.3 Egfr Non- 82.9 >60 Egfr 100.3 >60 8 CBC Auto Diff 02/16/2018 [facility] White Blood 4.5 10^3/uL N 3.5-10.[address] [place] [address] [phone] Red Blood Count 3.90 10^6/uL Low 4.00-5.40 Hemoglobin 12.2 g/dL Low 14.0-18.0 Hematocrit 36 % Low 42-52 Mean Corpuscular Volume 93 fL N 80-94 Mean Corpuscular Hemoglobin 31 pg N 27-31 Mean Corpuscular HGB Conc 34 g/dL N 31-36 Red Cell Distribution Width 15 % N 10.5-15 Platelet Count 183 10^3/uL N 150-450 Mean Platelet Volume 8.9 fL N 7.4-10.4 Abs Neutrophils 2.7 10^3/uL N 1.5-7.7 Abs Lymphocytes 1.3 10^3/uL N 1.0-4.8 Abs Monocytes 0.5 10^3/uL N 0-0.8 Abs Eosinophils 0.1 10^3/uL N 0-0.6 Abs Basophils 0 10^3/uL N 0-0.2 Abs Nucleated RBC 0 10^3/uL Granulocyte % 59.3 % N 38-83 Lymphocyte % 28.1 % N 25-47 Monocyte % 10.3 % High 0-7 Eosinophil % 1.4 % N 0-6 Basophil % 0.9 % N 0-2 Nucleated Red Blood Cells % 0.1 Iron & Iron Binding 02/16/2018 [facility] Iron 96 g/dL N 50- [address] [place] [address] [phone] Unsaturated Iron Binding < 363 g/dL Total Iron Binding Capacity 378 g/dL N 250-450 Transferrin 270 mg/dL N 203-362 % Iron Saturation 25 % N 15-55 CBC No Diff 09/06/2017 [facility] White Blood 4.1 10^3/uL N 3.5-10.[address] [place] [address] [phone] Red Blood Count 3.85 10^6/uL Low 4.0-5.4 Hemoglobin 12.2 g/dL Low 14.0-18.0 Hematocrit 36 % Low 42-52 Mean Corpuscular Volume 93 fL N 80-94 Mean Corpuscular Hemoglobin 32 pg High 27-31 Mean Corpuscular HGB Conc 34 g/dL N 31-36 Red Cell Distribution Width 14 % N 10.5-15 Platelet Count 174 10^3/uL N 150-450 Mean Platelet Volume 9.5 um3 N 7.4-10.4 Laboratory 09/06/2017 [facility] TSH (Thyroid Stim 1.46 N 0.34 -5.[address]) mcIU/[place] [address] [phone] Lipid Profile 09/06/2017 [facility] Triglycerides 44 mg/dL 9 (Trig/Chol/HDL [address] ) [place] [address] [phone] Cholesterol 172 mg/dL 10 HDL Cholesterol 57.0 mg/dL 11 LDL Cholesterol 106 mg/dL 12 Basic Metabolic Panel 09/06/2017 [facility] Sodium 139 mmol/L N 139-145 [address] [place] [address] [phone] Potassium 4.1 mmol/L N 3.5-5.0 Chloride 106 mmol/L N 101-111 Co2 Carbon Dioxide 27 mmol/L N 22-32 Anion Gap 6 mmol/L N 2-11 Glucose 88 mg/dL N 70-100 Blood Urea Nitrogen 22 mg/dL N 6-24 Creatinine 0.83 mg/dL N 0.67-1.17 BUN/Creatinine Ratio 26.5 High 8-20 Calcium 8.5 mg/dL Low 8.6-10.3 Egfr Non- 90.1 >60 Egfr 115.8 >60 13 Inr/Protime 09/06/2017 [facility] Inr 1.18 High 0.77-1.02 [address] [place] [address] [phone] Urinalysis 12/09/2016 [facility] Urine Color Yellow N 14 Profile [address] [place] [address] [phone] Urine Appearance Clear N Urine Specific Gilbert 1.018 N 1.010-1.030 Urine pH 6.0 N 5-9 Urine Urobilinogen Negative N Negative Urine Ketones Negative N Negative Urine Protein Negative N Negative Urine Leukocytes Negative N Negative Urine Blood Negative N Negative Urine Nitrite Negative N Negative Urine Bilirubin Negative N Negative Urine Glucose Negative N Negative Basic Metabolic Panel 12/09/2016 [facility] Sodium 138 mmol/L N 133-145 [address] [place] [address] [phone] Potassium 4.1 mmol/L N 3.5-5.0 Chloride 104 mmol/L N 101-111 Co2 Carbon Dioxide 29 mmol/L N 22-32 Anion Gap 5 mmol/L N 2-11 Glucose 82 mg/dL N 70-100 Blood Urea Nitrogen 19 mg/dL N 6-24 Creatinine 0.80 mg/dL N 0.67-1.17 BUN/Creatinine Ratio 23.8 High 8-20 Calcium 8.8 mg/dL N 8.6-10.3 Egfr Non- 94.0 N >60 Egfr 120.9 N >60 15 Laboratory test 12/09/2016 [facility] TSH (Thyroid 1.57 mcIU/mL N 0.34-5.60 [address] Stim [place]orm) [place] [address] [phone] Free T4 (Free Thyroxine) 1.40 ng/dL High 0.61-1.12 17 Inr/Protime 12/09/2016 [facility] Inr 1.21 High 0.89-1.[address] [place] [address] [phone] Laboratory test 12/09/2016 [facility] Partial 36.6 seconds High 26.0-36.[address] [place] [address] Time PTT [phone] Type & Screen 12/09/2016 [facility] Patient O [place] [address] [phone] Antibody Screen NEGATIVE N Urine Culture And 12/09/2016 [facility] Urine Culture SEE RESULT [address] [place] [address] [phone] CBC No Diff 12/09/2016 [facility] White Blood 4.2 10^3/uL N 3.5-[address] Count 0.8 [place] [address] [phone] Red Blood Count 3.78 10^6/uL Low 4.0-5.4 Hemoglobin 12.5 g/dL Low 14.0-18.0 Hematocrit 37 % Low 42-52 Mean Corpuscular Volume 97 fL High 80-94 Mean Corpuscular Hemoglobin 33 pg High 27-31 Mean Corpuscular HGB Conc 34 g/dL N 31-36 Red Cell Distribution Width 13 % N 10.5-15 Platelet Count 169 10^3/uL N 150-450 Mean Platelet Volume 9 um3 N 7.4-10.4 Lipid Profile 08/02/2016 [facility] Triglycerides 44 mg/dL N 20 (Trig/Chol/HDL) [address] [place] [address] [phone] Cholesterol 176 mg/dL N 21 HDL Cholesterol 61.5 mg/dL N 22 LDL Cholesterol 106 mg/dL N 23 Laboratory test 08/02/2016 [facility] Ferritin 40.7 ng/mL N 24 -336 [address] [place] [address] [phone] Basic Metabolic 08/02/2016 [facility] Sodium 138 mmol/L N 133- 145 Panel [address] [place] [address] [phone] Potassium 4.1 mmol/L N 3.5-5.0 Chloride 105 mmol/L N 101-111 Co2 Carbon Dioxide 28 mmol/L N 22-32 Anion Gap 5 mmol/L N 2-11 Glucose 84 mg/dL N 70-100 Blood Urea Nitrogen 16 mg/dL N 6-24 Creatinine 0.78 mg/dL N 0.67-1.17 BUN/Creatinine Ratio 20.5 High 8-20 Calcium 9.0 mg/dL N 8.6-10.3 Egfr Non- 97.0 N >60 Egfr 124.8 N >60 25 CBC Auto Diff 08/02/2016 [facility] White Blood 3.9 10^3/uL N 3.5-10.[address] [place] [address] [phone] Red Blood Count 4.08 10^6/uL N 4.0-5.4 Hemoglobin 12.9 g/dL Low 14.0-18.0 Hematocrit 38 % Low 42-52 Mean Corpuscular Volume 93 fL N 80-94 Mean Corpuscular Hemoglobin 32 pg High 27-31 Mean Corpuscular HGB Conc 34 g/dL N 31-36 Red Cell Distribution Width 14 % N 10.5-15 Platelet Count 142 10^3/uL Low 150-450 Mean Platelet Volume 10 um3 N 7.4-10.4 Abs Neutrophils 2.2 10^3/uL N 1.5-7.7 Abs Lymphocytes 1.2 10^3/uL N 1.0-4.8 Abs Monocytes 0.4 10^3/uL N 0-0.8 Abs Eosinophils 0.1 10^3/uL N 0-0.6 Abs Basophils 0 10^3/uL N 0-0.2 Abs Nucleated RBC 0 10^3/uL N Granulocyte % 56.0 % N 38-83 Lymphocyte % 31.3 % N 25-47 Monocyte % 9.3 % High 1-9 Eosinophil % 2.7 % N 0-6 Basophil % 0.7 % N 0-2 Nucleated Red Blood Cells % 0.1 N Xray 03/08/2016 [facility] MRI Shoulder <pending> [address] [place] [address] [phone] Laboratory test 11/28/2015 [facility] Ferritin 10.9 ng/mL Low 24-[address] [place] [address] [phone] CBC Auto Diff 11/24/2015 [facility] White Blood 5.0 10^3/uL N 3.5-[address] Count .8 [place] [address] [phone] Red Blood Count 3.87 10^6/uL Low 4.0-5.4 Hemoglobin 11.8 g/dL Low 14.0-18.0 Hematocrit 35 % Low 42-52 Mean Corpuscular Volume 91 fL N 80-94 Mean Corpuscular Hemoglobin 31 pg N 27-31 Mean Corpuscular HGB Conc 34 g/dL N 31-36 Red Cell Distribution Width 14 % N 10.5-15 Platelet Count 179 10^3/uL N 150-450 Mean Platelet Volume 11 um3 High 7.4-10.4 Abs Neutrophils 2.8 10^3/uL N 1.5-7.7 Abs Lymphocytes 1.5 10^3/uL N 1.0-4.8 Abs Monocytes 0.5 10^3/uL N 0-0.8 Abs Eosinophils 0.2 10^3/uL N 0-0.6 Abs Basophils 0 10^3/uL N 0-0.2 Abs Nucleated RBC 0 10^3/uL N Granulocyte % 55.1 % N 38-83 Lymphocyte % 29.8 % N 25-47 Monocyte % 10.3 % High 1-9 Eosinophil % 3.9 % N 0-6 Basophil % 0.9 % N 0-2 Nucleated Red Blood Cells % 0.1 N Stool For Blood 09/29/2015 [facility] Miscellaneous Lab negative X 3 Lipid Profile 09/02/2015 [facility] Triglycerides 47 mg/dL N 26 (Trig/Chol/HDL) [address] [place] [address] [phone] Cholesterol 167 mg/dL N 27 HDL Cholesterol 62.9 mg/dL N 28 LDL Cholesterol 95 mg/dL N 29 Laboratory test 09/02/2015 [facility] Ferritin 10.5 ng/mL Low 24-336 finding [address] [place] [address] [phone] Iron & Iron Binding 09/02/2015 [facility] Iron 74 g/dL N 50- 212 [address]acity [address] [place] [address] [phone] Unsaturated Iron Binding 286 g/dL N Total Iron Binding Capacity 360 g/dL N 250-450 % Iron Saturation 21 % N 15-55 Basic Metabolic Panel 09/02/2015 [facility] Sodium 138 mmol/L N 133-145 [address] [place] [address] [phone] Potassium 4.2 mmol/L N 3.5-5.0 Chloride 106 mmol/L N 101-111 Co2 Carbon Dioxide 27 mmol/L N 22-32 Anion Gap 5 mmol/L N 2-11 Glucose 81 mg/dL N 70-100 Blood Urea Nitrogen 21 mg/dL N 6-24 Creatinine 0.85 mg/dL N 0.67-1.17 BUN/Creatinine Ratio 24.7 High 8-20 Calcium 8.8 mg/dL N 8.6-10.3 Egfr Non- 88.1 N >60 Egfr 113.3 N >60 30 CBC Auto Diff 09/27/2014 [facility] White Blood 5.2 10^3/uL N 4.8-10.[address] [place] [address] [phone] Red Blood Count 4.02 10^6/uL N 4.0-5.4 Hemoglobin 12.2 g/dL Low 14.0-18.0 Hematocrit 37 % Low 42-52 Mean Corpuscular Volume 92 fL N 80-94 Mean Corpuscular Hemoglobin 30 pg N 27-31 Mean Corpuscular HGB Conc 33 g/dL N 31-36 Red Cell Distribution Width 14 % N 10.5-15 Platelet Count 192 10^3/uL N 150-450 Mean Platelet Volume 10 um3 N 7.4-10.4 Abs Neutrophils 3.0 10^3/uL N 1.5-7.7 Abs Lymphocytes 1.4 10^3/uL N 1.0-4.8 Abs Monocytes 0.6 10^3/uL N 0-0.8 Abs Eosinophils 0.2 10^3/uL N 0-0.6 Abs Basophils 0 10^3/uL N 0-0.2 Abs Nucleated RBC 0 10^3/uL N Granulocyte % 58.2 % N 38-83 Lymphocyte % 27.2 % N 25-47 Monocyte % 10.7 % High 1-9 Eosinophil % 3.3 % N 0-6 Basophil % 0.6 % N 0-2 Nucleated Red Blood Cells % 0 N Basic Metabolic Panel 09/27/2014 [facility] Sodium 137 mmol/L N 133-145 [address] [place] [address] [phone] Potassium 4.6 mmol/L N 3.5-5.0 Chloride 106 mmol/L N 101-111 Co2 Carbon Dioxide 26 mmol/L N 22-32 Anion Gap 5 mmol/L N 2-11 Glucose 79 mg/dL N 70-100 Blood Urea Nitrogen 16 mg/dL N 6-24 Creatinine 0.78 mg/dL N 0.67-1.17 BUN/Creatinine Ratio 20.5 High 8-20 Calcium 8.6 mg/dL N 8.6-10.3 Egfr Non- 97.6 N >60 Egfr 125.5 N >60 32 Pthi 09/12/2013 [facility] PTH Intact 3.9 pmol/L N 1.3-9.[address] [place] [address] [phone] Calcium (PTH Intact) 9.0 mg/dL N 8.6-10.3 Laboratory test 09/12/2013 [facility] Testosterone 410.78 N 240-[address] ng/[place] [address] [phone] Vitamin D, 25 09/12/2013 [facility] 25-Hydroxy <4.0 ng/mL N Hydroxy [address] [place] [address] [phone] 25-Hydroxy Vitamin D3 32 ng/mL N 25-Hydroxy Vitamin D Total 32 ng/mL N 33 Basic Metabolic Panel 07/06/2013 [facility] Sodium 136 mmol/L N 133-[address] [place] [address] [phone] Potassium 4.1 mmol/L N 3.7-5.6 Chloride 102 mmol/L N 101-111 Co2 Carbon Dioxide 30 mmol/L N 22-32 Anion Gap 4 mmol/L N 2-11 Glucose 82 mg/dL N 70-100 Blood Urea Nitrogen 18 mg/dL N 6-24 Creatinine 0.76 mg/dL N 0.67-1.17 BUN/Creatinine Ratio 23.7 High 8-20 Calcium 8.9 mg/dL N 8.6-10.3 Egfr Non- 100.8 N >60 Egfr 129.7 N >60 34 1 Because ethnic data is not always readily available, this report includes an eGFR for both -Americans and non- Americans. The National Kidney Disease Education Program (NKDEP) does not endorse the use of the MDRD equation for patients that are not between the ages of 18 and 70, are , have extremes of body size, muscle mass, or nutritional status, or are non- or non-. According to the National Kidney Foundation, irrespective of diagnosis, the stage of the disease is based on the level of kidney function: Stage Description GFR(mL/min/1.73 m(2)) 1 Kidney damage with normal or decreased GFR 90 2 Kidney damage with mild decrease in GFR 60-89 3 Moderate decrease in GFR 30-59 4 Severe decrease in GFR 15-29 5 Kidney failure <15 (or dialysis) 2 Standard intensity warfarin therapeutic range: 2.0-3.0 High intensity warfarin therapeutic range: 2.5-3.5 3 Because ethnic data is not always readily available, this report includes an eGFR for both -Americans and non- Americans. The National Kidney Disease Education Program (NKDEP) does not endorse the use of the MDRD equation for patients that are not between the ages of 18 and 70, are , have extremes of body size, muscle mass, or nutritional status, or are non- or non-. According to the National Kidney Foundation, irrespective of diagnosis, the stage of the disease is based on the level of kidney function: Stage Description GFR(mL/min/1.73 m(2)) 1 Kidney damage with normal or decreased GFR 90 2 Kidney damage with mild decrease in GFR 60-89 3 Moderate decrease in GFR 30-59 4 Severe decrease in GFR 15-29 5 Kidney failure <15 (or dialysis) 4 Desirable: <150 Borderline High: 150-199 High: 200-499 Very High: >500 5 Desirable: <200 Borderline High: 200-239 High: >239 6 Low: <40 Desirable: 40-60 High: >60 7 Desirable: <100 Near Optimal: 100-129 Borderline High: 130-159 High: 160-189 Very High: >189 8 Because ethnic data is not always readily available, this report includes an eGFR for both -Americans and non- Americans. The National Kidney Disease Education Program (NKDEP) does not endorse the use of the MDRD equation for patients that are not between the ages of 18 and 70, are , have extremes of body size, muscle mass, or nutritional status, or are non- or non-. According to the National Kidney Foundation, irrespective of diagnosis, the stage of the disease is based on the level of kidney function: Stage Description GFR(mL/min/1.73 m(2)) 1 Kidney damage with normal or decreased GFR 90 2 Kidney damage with mild decrease in GFR 60-89 3 Moderate decrease in GFR 30-59 4 Severe decrease in GFR 15-29 5 Kidney failure <15 (or dialysis) 9 Desirable: <150 Borderline High: 150-199 High: 200-499 Very High: >500 10 Desirable: <200 Borderline High: 200-239 High: >239 11 Low: <40 Desirable: 40-60 High: >60 12 Desirable: <100 Near Optimal: 100-129 Borderline High: 130-159 High: 160-189 Very High: >189 13 Because ethnic data is not always readily available, this report includes an eGFR for both -Americans and non- Americans. The National Kidney Disease Education Program (NKDEP) does not endorse the use of the MDRD equation for patients that are not between the ages of 18 and 70, are , have extremes of body size, muscle mass, or nutritional status, or are non- or non-. According to the National Kidney Foundation, irrespective of diagnosis, the stage of the disease is based on the level of kidney function: Stage Description GFR(mL/min/1.73 m(2)) 1 Kidney damage with normal or decreased GFR 90 2 Kidney damage with mild decrease in GFR 60-89 3 Moderate decrease in GFR 30-59 4 Severe decrease in GFR 15-29 5 Kidney failure <15 (or dialysis) 14 12/22 15 Because ethnic data is not always readily available, this report includes an eGFR for both -Americans and non- Americans. The National Kidney Disease Education Program (NKDEP) does not endorse the use of the MDRD equation for patients that are not between the ages of 18 and 70, are , have extremes of body size, muscle mass, or nutritional status, or are non- or non-. According to the National Kidney Foundation, irrespective of diagnosis, the stage of the disease is based on the level of kidney function: Stage Description GFR(mL/min/1.73 m(2)) 1 Kidney damage with normal or decreased GFR 90 2 Kidney damage with mild decrease in GFR 60-89 3 Moderate decrease in GFR 30-59 4 Severe decrease in GFR 15-29 5 Kidney failure <15 (or dialysis) 16 12/22 17 12/22 18 12/22 19 SEE RESULT BELOW Name: CHAIM CORONADO : [address]: Alyssa Can MD Acct: [id number] Unit: [id number] AGE: 76 Location: [facility] Re12/09/16 SEX: M Status: REG REF SPEC: [id number] AZUL: 12/09/16-[address] [facility] [address]: Alyssa Can MD REQ: [id number] RECD: 12/09/16 STATUS: COMP _ SOURCE: URINE SPDESC: ORDERED: Urine Culture QUERIES: Urine Source: Clean Catch Procedure Result Reported Site Urine Culture Final 12/10/16- 1316 ML No Growth (<1,000 CFU/mL) * ML - MAIN LAB ([facility]) . END OF REPORT * ML=Testing performed at Main Lab DEPARTMENT OF PATHOLOGY, [address] [place] [address] Omid Martinez M.D. Director [facility] # [id number] 20 Desirable <150 Borderline high 150-199 High 200-499 Very High >500 21 Desirable <200 Borderline high 200-239 High >239 22 Low <40 Desirable: 40-60 High: >60 23 Desirable: <100 mg/dL Near Optimal: 100-129 mg/dL Borderline High: 130-159 mg/dL High: 160-189 mg/dL Very High: >189 mg/dL 24 FASTING 10 HOUR 25 Because ethnic data is not always readily available, this report includes an eGFR for both -Americans and non- Americans. The National Kidney Disease Education Program (NKDEP) does not endorse the use of the MDRD equation for patients that are not between the ages of 18 and 70, are , have extremes of body size, muscle mass, or nutritional status, or are non- or non-. According to the National Kidney Foundation, irrespective of diagnosis, the stage of the disease is based on the level of kidney function: Stage Description GFR(mL/min/1.73 m(2)) 1 Kidney damage with normal or decreased GFR 90 2 Kidney damage with mild decrease in GFR 60-89 3 Moderate decrease in GFR 30-59 4 Severe decrease in GFR 15-29 5 Kidney failure <15 (or dialysis) 26 Desirable <150 Borderline high 150-199 High 200-499 Very High >500 27 Desirable <200 Borderline high 200-239 High >239 28 Low <40 Desirable: 40-60 High: >60 29 Desirable: <100 mg/dL Near Optimal: 100-129 mg/dL Borderline High: 130-159 mg/dL High: 160-189 mg/dL Very High: >189 mg/dL 30 Because ethnic data is not always readily available, this report includes an eGFR for both -Americans and non- Americans. The National Kidney Disease Education Program (NKDEP) does not endorse the use of the MDRD equation for patients that are not between the ages of 18 and 70, are , have extremes of body size, muscle mass, or nutritional status, or are non- or non-. According to the National Kidney Foundation, irrespective of diagnosis, the stage of the disease is based on the level of kidney function: Stage Description GFR(mL/min/1.73 m(2)) 1 Kidney damage with normal or decreased GFR 90 2 Kidney damage with mild decrease in GFR 60-89 3 Moderate decrease in GFR 30-59 4 Severe decrease in GFR 15-29 5 Kidney failure <15 (or dialysis) 31 soon 32 Because ethnic data is not always readily available, this report includes an eGFR for both -Americans and non- Americans. The National Kidney Disease Education Program (NKDEP) does not endorse the use of the MDRD equation for patients that are not between the ages of 18 and 70, are , have extremes of body size, muscle mass, or nutritional status, or are non- or non-. According to the National Kidney Foundation, irrespective of diagnosis, the stage of the disease is based on the level of kidney function: Stage Description GFR(mL/min/1.73 m(2)) 1 Kidney damage with normal or decreased GFR 90 2 Kidney damage with mild decrease in GFR 60-89 3 Moderate decrease in GFR 30-59 4 Severe decrease in GFR 15-29 5 Kidney failure <15 (or dialysis) 33 -- REFERENCE VALUE -- 25-HYDROXY D TOTAL (D2+D3) Optimum levels in the healthy population are 20-50, patients with bone disease may benefit from higher levels within this range. Test Performed by: [place] [address] [employer]er: Jeff Lopez III, M.D. 34 Because ethnic data is not always readily available, this report includes an eGFR for both -Americans and non- Americans. The National Kidney Disease Education Program (NKDEP) does not endorse the use of the MDRD equation for patients that are not between the ages of 18 and 70, are , have extremes of body size, muscle mass, or nutritional status, or are non- or non-. According to the National Kidney Foundation, irrespective of diagnosis, the stage of the disease is based on the level of kidney function: Stage Description GFR(mL/min/1.73 m(2)) 1 Kidney damage with normal or decreased GFR 90 2 Kidney damage with mild decrease in GFR 60-89 3 Moderate decrease in GFR 30-59 4 Severe decrease in GFR 15-29 5 Kidney failure <15 (or dialysis) Procedures Date Code Description Status 10/06/2018 87177 Icd Eval With Iterative Adjustmt Multiple Lead System Completed 10/06/2018 30116 EKG Tracing & Interpretation Completed 09/12/2018 82768 Cardioversion Completed 08/30/2018 91002 Interrogation Device Eval Remote Up To 30 Days Completed Analysis,Rev,RP 08/30/2018 08033 Interrogation Device Eval Remote Up To 30 Days Completed Analysis,Rev,RP 08/30/2018 07317 Icd Eval Sing,Dual,Multi Lead Remote Recpt Transm Tech Completed Rev Tech S 08/30/2018 71066 Icd Eval Sing,Dual,Multi Lead Remote Recpt Transm Tech Completed Rev Tech S 08/30/2018 26818 Icd Check Remote Up To 90 Days Single,Dual,Multiple Completed Lead 08/30/2018 34964 Icd Check Remote Up To 90 Days Single,Dual,Multiple Completed Lead 08/18/2018 25291 EKG Tracing & Interpretation Completed 08/09/2018 48356 Sleep Study Unattended,HRT Rate,Oxygen Sat,Resp Completed Effort/Airflow 07/20/2018 20297 Cardioversion Completed 07/20/2018 33746 EKG Tracing & Interpretation Completed 07/20/2018 03643 EKG, Interpretation Only Completed 07/20/2018 55244 Icd Eval With Iterative Adjustmt Multiple Lead System Completed 07/20/2018 23486 Icd Eval With Iterative Adjustmt Multiple Lead System Completed 07/20/2018 26001 Interrogation Implant Cardiovasc Monitor System Incl Completed Analysis Int 07/20/2018 01196 Interrogation Implant Cardiovasc Monitor System Incl Completed Analysis Int 05/29/2018 33498 Interrogation Device Eval Remote Up To 30 Days Completed Analysis,Rev,RP 05/29/2018 98129 Interrogation Device Eval Remote Up To 30 Days Completed Analysis,Rev,RP 05/29/2018 48612 Icd Eval Sing,Dual,Multi Lead Remote Recpt Transm Tech Completed Rev Tech S 05/29/2018 88085 Icd Eval Sing,Dual,Multi Lead Remote Recpt Transm Tech Completed Rev Tech S 05/29/2018 60770 Icd Check Remote Up To 90 Days Single,Dual,Multiple Completed Lead 05/29/2018 36776 Icd Check Remote Up To 90 Days Single,Dual,Multiple Completed Lead 05/16/2018 17121612 Colonoscopy Completed 04/28/2018 66946 Implantable Cardio System Loop Recorder Sys Remota Completed Data Acquistio 04/28/2018 82310 Interrogation Device Eval Remote Up To 30 Days Completed Analysis,Rev,RP 04/28/2018 96096 Implantable Cardio System Loop Recorder Sys Remota Completed Data Acquistio 04/28/2018 69973 Interrogation Device Eval Remote Up To [address] Completed Analysis,Rev,RP 03/30/2018 04597 Implantable Cardio System Loop Recorder Sys Remota Completed Data Acquistio 03/30/2018 14936 Interrogation Device Eval Remote Up To [address] Completed Analysis,Rev,RP 03/28/2018 53434 Implantable Cardio System Loop Recorder Sys Remota Completed Data Acquistio 03/28/2018 01420 Interrogation Device Eval Remote Up To [address] Completed Analysis,Rev,RP 03/07/2018 70630 Pulmonary Function><Bronchodil Completed 03/07/2018 43033 Diffusing Capacity Completed 03/07/2018 69883 Plethysmography Determination Lung Volumes & Per Completed Airway Resist 02/25/2018 01769 Icd Check Remote Up To 90 Days Single,Dual,Multiple Completed Lead 02/25/2018 77517 Interrogation Device Eval Remote Up To [address] Completed Analysis,Rev,RP 02/25/2018 02519 Icd Eval Sing,Dual,Multi Lead Remote Recpt Transm Tech Completed Rev Tech S 12/26/2017 68756 Interrogation Device Eval Remote Up To [address] Completed Analysis,Rev,RP 12/26/2017 46001 Interrogation Device Eval Remote Up To [address] Completed Analysis,Rev,RP 12/14/2017 44650 ECHO Transthoracic, Real-Time 2D With Doppler And Completed Color Flow 12/14/2017 73001 ECHO Transthoracic, Real-Time 2D With Doppler And Completed Color Flow 11/23/2017 61370 Interrogation Implant Cardiovasc Monitor System Incl Completed Analysis Int 11/23/2017 86671 Interrogation Implant Cardiovasc Monitor System Incl Completed Analysis Int 11/23/2017 73611 Icd Eval With Iterative Adjustmt Multiple Lead System Completed 11/23/2017 30079 Icd Eval With Iterative Adjustmt Multiple Lead System Completed 07/20/2017 96009 EKG Tracing & Interpretation Completed 02/01/2017 10587 Diffusing Capacity Completed 02/01/2017 37803 Plethysmography Determination Lung Volumes & Per Completed Airway Resist 02/01/2017 66797 Pulmonary Function><Bronchodil Completed 12/22/2016 09296 Arthroplasty,Total Shoulder Replacement (TSR) Completed 12/22/2016 63083 Arthroplasty,Total Shoulder Replacement (TSR) Completed 12/08/2016 08811 EKG Tracing & Interpretation Completed 08/24/2016 76837 ECHO Transthoracic, Real-Time 2D With Doppler And Completed Color Flow 07/27/2016 64723 EKG Tracing & Interpretation Completed 07/05/2016 83935 EKG, Interpretation Only Completed 07/05/2016 94581 Cardioversion Completed 06/18/2016 76143 EKG Tracing & Interpretation Completed 02/24/2016 83230 Inject/Drain Joint/Bursa Major W/O US Completed 11/18/2015 10013 EKG Tracing & Interpretation Completed 11/14/2015 56447 EKG, Interpretation Only Completed 11/14/2015 57004 Cardioversion Completed 11/13/2015 66687 EKG Tracing & Interpretation Completed 09/05/2015 58677 EKG Tracing & Interpretation Completed 01/20/2015 26222 Inject/Drain Joint/Bursa Major W/O US Completed 12/17/2014 89541 EKG Tracing & Interpretation Completed 12/04/2014 32695 Holter Monitoring 24 HR New Completed 11/25/2014 23944 Cardioversion Completed 10/21/2014 76503 Plethysmography Determination Lung Volumes & Per Completed Airway Resist 10/21/2014 18159 Pulmonary Function><Bronchodil Completed 09/27/2014 86369 EKG Tracing & Interpretation Completed 09/20/2014 32993 Holter Monitoring 24 HR New Completed 09/12/2014 92908 ECHO Transthoracic, Real-Time 2D With Doppler And Completed Color Flow 03/12/2014 78279 Inject/Drain Joint/Bursa Major W/O US Completed 11/27/201387489 Inject/Drain Joint/Bursa Major W/O US Completed 09/17/2013 862019363 Bone Mineral Density Test Completed 03/23/2013 05756 EKG Tracing & Interpretation Completed 03/15/2013 71685 Holter Monitoring 24 HR New Completed 12/13/2012 14413 ECHO Transthoracic, Real-Time 2D With Doppler And Completed Color Flow 12/07/2012 39016 Holter Monitoring 24 HR New Completed 08/26/2011 75319617 Colonoscopy Completed 03/23/2010 02638 Rad Exam; Hip Unilat Completed 03/23/2010 59074 Rad Exam; Pelvis Completed 12/24/2009 09899 Rad Exam; Hip Unilat Completed 12/24/2009 46427 Rad Exam; Pelvis Completed 11/20/200910373 Inject/Drain Joint/Bursa Major W/O US Completed 10/03/2009 57546 Percutaneous TX Of Femoral FX Completed Encounters Type Date Location Provider Dx Diagnosis Office Visit 10/06/2018 [facility] Jeremy Hendrickson I42.9 Cardiomyopathy, 12:15p Of Ivan Valadez M.D. unspecified Z95.810 Presence of automatic (implantable) cardiac defibrillator I48.0 Paroxysmal atrial fibrillation Z01.810 Encounter for preprocedural cardiovascular examination Office Visit 08/18/2018 Michael Hendrickson I42.9 Cardiomyopathy, 12:00p Cardiology Of Nimesh Valadez unspecified [employer] Z95.810 Presence of automatic (implantable) cardiac defibrillator I48.0 Paroxysmal atrial fibrillation Office Visit 08/15/2018 Pulmonology And Carmen G47.33 Obstructive sleep 2:00p [facility] [place] apnea (adult) Ivan (pediatric) G47.50 Parasomnia, unspecified Office Visit 08/08/2018 Orthopedic Alyssa Can, M19.011 Primary 1:45p Services Of osteoarthritis, C.M.A. right shoulder M85.811 Oth disrd of bone density and structure, right shoulder Office Visit 08/05/2018 1:30p Pulmonology And Myrna G47.9 Sleep disorder, Sleep Services Of MD Ronni unspecified [facility] G47.50 Parasomnia, unspecified R53.83 Other fatigue Office Visit 07/26/2018 11:20a [facility] Internal Cristy Gus, D64.9 Anemia, Medicine - Ccmob unspecified F51.8 Oth sleep disord not due to a sub or known physiol cond M54.5 Low back pain M54.2 Cervicalgia M19.011 Primary osteoarthritis, right shoulder R06.83 Snoring Office Visit 07/20/2018 10:00a [facility] Thuy Taylor, I48.0 Paroxysmal atrial Of Ivan Beavers fibrillation I42.9 Cardiomyopathy, unspecified I44.7 Left bundle-branch block, unspecified Z95.810 Presence of automatic (implantable) cardiac defibrillator Office Visit 07/18/2018 Orthopedic Alyssa Can, M19.011 Primary 2:00p Services Of MD lucero, C.M.A. right shoulder Office Visit 03/15/2018 Michael Hendrickson I48.0 Paroxysmal atrial 3:15p Cardiology Of Nimesh Valadez fibrillation [facility] Z95.810 Presence of automatic (implantable) cardiac defibrillator I42.9 Cardiomyopathy, unspecified Office Visit 02/15/2018 1:00p [facility] Internal Owen Hendrickson Z00.01 Encounter for Audra Richmond M.D.,FACP general adult Suite [facility] medical exam w abnormal findings D50.8 Other iron deficiency anemias I42.8 Other cardiomyopathies M47.816 Spondylosis w/o myelopathy or radiculopathy, lumbar region M54.2 Cervicalgia H93.13 Tinnitus, bilateral Office Visit 12/21/2017 2:20p [facility] Internal Owen Richmond M54.2 Cervicalgia Medicine - Tiny R Nimesh,FACP M79.604 Pain in right leg Z23 Encounter for immunization Office Visit 12/02/2017 Michael Hendrickson Z95.810 Presence of 11:30a Cardiology Of Nimesh Valadez automatic [facility] (implantable) cardiac defibrillator I42.9 Cardiomyopathy, unspecified I49.3 Ventricular premature depolarization Office Visit 07/25/2017 2:00p [facility] Chapin Hendrickson D48.5 Neoplasm of [facility] - Tiny Richmond M.D.,FACP uncertain R behavior of skin R25.1 Tremor, unspecified R06.02 Shortness of breath Office Visit 07/21/2017 Orthopedic Alyssa Can, M19.011 Primary 1:15p Services Of MD lucero C.M.AChristy right shoulder Office Visit 07/20/2017 Michael Hendrickson I42.9 Cardiomyopathy, 3:00p Cardiology Of Nimesh Valadez unspecified [facility] I48.0 Paroxysmal atrial fibrillation R00.1 Bradycardia, unspecified Office Visit 03/24/2017 8:45a Orthopedic Alyssa Can, Z96.612 Presence of left Services Of MD crenshaw C.M.AChristy shoulder joint Z47.1 Aftercare following joint replacement surgery Office Visit 03/16/2017 [facility] Internal Mary M54.16 Radiculopathy, 10:50a Audra Stacy NP lumbar region Suite R Office Visit 01/24/2017 [facility] Internal Owen Hendrickson Z00.01 Encounter for 4:00p Audra Richmond M.D.,FACP general adult Suite R medical exam w abnormal findings Z96.612 Presence of left artificial shoulder joint I42.9 Cardiomyopathy, unspecified I48.0 Paroxysmal atrial fibrillation J40 Bronchitis, not specified as acute or chronic Z23 Encounter for immunization Office Visit 12/24/2016 [facility] I48.91 Unspecified atrial 2:20p Assoc,jessica Orr M.D. fibrillation Hospitalists I42.9 Cardiomyopathy, unspecified D64.9 Anemia, unspecified Z96.619 Presence of unspecified artificial shoulder joint Office Visit 12/23/2016 [facility] I48.91 Unspecified atrial 2:20p Assoc,jessica Orr M.D. fibrillation Hospitalists I42.9 Cardiomyopathy, unspecified Z96.619 Presence of unspecified artificial shoulder joint Office Visit 12/16/2016 9:40a [facility] Internal Hadley Garcia Z01.818 Encounter for other Medicine - OBSTETRICS TECHNICIAN preprocedural Ccmob examination M19.012 Primary osteoarthritis, left shoulder I48.1 Persistent atrial fibrillation J44.1 Chronic obstructive pulmonary disease w (acute) exacerbation D50.8 Other iron deficiency anemias Office Visit 12/13/2016 1:40p [facility] Internal Ritesh R26.81 Unsteadiness on Medicine - Nimesh Corona feet Suite R H81.43 Vertigo of central origin, bilateral Office Visit 12/08/2016 11:30a [facility] Jeremy Hendrickson I48.1 Persistent atrial Of Ivan Valadez M.D. fibrillation I42.9 Cardiomyopathy, unspecified R94.31 Abnormal electrocardiogram [ECG] [EKG] Z01.810 Encounter for preprocedural cardiovascular examination M19.012 Primary osteoarthritis, left shoulder Office Visit 09/03/2016 10:45a [facility] Jeremy Hendrickson I48.1 Persistent atrial Of Ivan Valadez M.D. fibrillation I42.9 Cardiomyopathy, unspecified R94.31 Abnormal electrocardiogram [ECG] [EKG] Office Visit 07/27/2016 1:00p [facility] Jeremy Hendrickson I48.1 Persistent atrial Of Knife Sharpener [facility] Nimesh Valadez fibrillation I42.9 Cardiomyopathy, unspecified R94.31 Abnormal electrocardiogram [ECG] [EKG] Office Visit 06/18/2016 [facility] Internal Owen Hendrickson Z01.810 Encounter for 1:00p Audra Richmond M.D.,[facility] preprocedural Suite R cardiovascular examination M19.012 Primary osteoarthritis, left shoulder I48.0 Paroxysmal atrial fibrillation I42.9 Cardiomyopathy, unspecified D68.9 Coagulation defect, unspecified D50.8 Other iron deficiency anemias J42 Unspecified chronic bronchitis Office Visit 06/18/2016 Michael Hendrickson I42.9 Cardiomyopathy, 3:15p Cardiology Of Nimesh Valadez unspecified [facility] I48.1 Persistent atrial fibrillation R94.31 Abnormal electrocardiogram [ECG] [EKG] Office Visit 03/18/2016 Orthopedic Alyssa Can M19.012 Primary 1:30p Services Of osteoarthritis, left C.M.A. shoulder S46.012A Strain of musc/tend the rotator cuff of left shoulder, init Office Visit 03/09/2016 [facility] Internal Owen Hendrickson M19.012 Primary 2:00p Audra Richmond M.D.,NATHANIEL osteoarthritis, left Ccmob shoulder I48.0 Paroxysmal atrial fibrillation D64.9 Anemia, unspecified I42.9 Cardiomyopathy, unspecified Z23 Encounter for immunization Office Visit 02/24/2016 Orthopedic Alyssa Can, M19.012 Primary 2:30p Services Of osteoarthritis, left C.M.A. shoulder S46.012A Strain of musc/tend the rotator cuff of left shoulder, init Office Visit 11/18/2015 1:30p [facility] Jeremy Hendrickson I48.0 Paroxysmal atrial Of [facility] AT [facility] Nimesh Valadez fibrillation R94.31 Abnormal electrocardiogram [ECG] [EKG] I42.9 Cardiomyopathy, unspecified Office Visit 09/05/2015 2:15p [facility] Jeremy Hendrickson I48.0 Paroxysmal atrial Of Ivan Valadez M.D. fibrillation I42.9 Cardiomyopathy, unspecified Office Visit 09/02/2015 3:00p [facility] Internal Owen Hendrickson Z00.01 Encounter for Audra Richmond M.D., FACP [facility] w abnormal findings I48.0 Paroxysmal atrial fibrillation J42 Unspecified chronic bronchitis M19.012 Primary osteoarthritis, left shoulder I71.9 Aortic aneurysm of unspecified site, without rupture H91.92 Unspecified hearing loss, left ear Office Visit 03/21/2015 1:30p [facility] Jeremy Hendrickson I48.0 Paroxysmal atrial Of Ivan Valadez M.D. fibrillation I42.9 Cardiomyopathy, unspecified R94.31 Abnormal electrocardiogram [ECG] [EKG] Office Visit 03/18/2015 11:30a [facility] Internal Owen Hendrickson J44.1 Chronic Audra Richmond M.D.,FAC obstructive Ccmob pulmonary disease w (acute) exacerbation Z23 Encounter for immunization Office Visit 01/20/2015 Orthopedic Alden Novoa, M19.211 Secondary 11:45a Services Of Nimesh osteoarthritis, C.M.A. right shoulder Office Visit 12/17/2014 [place] Jeremy Hendrickson 427.31 Atrial Fibrillation 1:45p Cardiology Stephen Valadez M.D. [facility] AT [facility] 425.4 Cardiomyopathy Other Prim Office Visit 10/28/2014 11:30a Orthopedic Alden Novoa, 726.19 Shoulder Disorders Services Of Nimesh Other Spec C.M.A. Office Visit 10/25/2014 2:00p [facility] Jeremy Hendrickson 427.31 Atrial Of Ivan Valadez M.D. Fibrillation 425.4 Cardiomyopathy Other Prim Office Visit 10/14/2014 1:40p [facility] Internal Owen Hendrickson 286.3 Coagulation Other Audra Richmond M.D.,[facility] Clotting Factors Suite R Congenital Deficiency 427.31 Atrial Fibrillation 491.20 Bronchitis Obstructive Chronic W/O Acute Exacerbation 726.19 Shoulder Disorders Other Spec 238.2 Neoplasm Uncertain Skin Office Visit 09/27/2014 3:15p Michael Hendrickson 425.4 Cardiomyopathy Other Cardiology Stepehn Valadez M.D. Prim [facility] 427.31 Atrial Fibrillation Office Visit 03/08/2014 11:00a [facility] Internal Owen Hendrickson V70.0 Examination Audra Richmond M.D.,FACP General Medical Ccmob Routine [facility] 427.1 Paroxysmal Ventricular Tachycardia 715.91 Osteoarthrosis Unspec Genlzd Or Localized Shoulder 491.20 Bronchitis Obstructive Chronic W/O Acute Exacerbation V03.82 Streptococcus Pneumoniae Vaccination Spec Other Office Visit 01/15/2014 3:00p [facility] Internal Bladimir Bond, 789.69 Tenderness [facility] OBSTETRICS TECHNICIAN Abdominal Other Spec Site V04.81 Need For Prophylactic Vaccination & Inoculation/Influenza Office Visit 01/08/2014 2:15p Orthopedic Alden Novoa, 715.91 Osteoarthrosis Services Of M.D. Unspec Genlzd Or C.M.A. Localized Shoulder Office Visit 11/27/2013 1:30p Orthopedic Alden Novoa 715.91 Osteoarthrosis Services Of M.D. Unspec Genlzd Or C.M.A. Localized Shoulder Office Visit 10/12/2013 2:20p [facility] Internal Owen Hendrickson 733.01 Osteoporosis Senile [facility] M.[facility].,FACP 715.91 Osteoarthrosis Unspec Genlzd Or Localized Shoulder Office Visit 09/13/2013 11:30a [facility] Jeremy Hendrickson 427.1 Paroxysmal Of Ivan Valadez M.D. Ventricular Tachycardia 427.69 Premature Beats Other 425.4 Cardiomyopathy Other Prim Office Visit 09/12/2013 1:00p [facility] Internal Owen Hendrickson 425.4 Cardiomyopathy Other Medicine - Nimesh Richmond,FACP Prim [facility] 733.09 Osteoporosis Other 724.2 Lumbago 333.1 Tremor Essential & Other Forms 840.4 Sprains & Strains Rotator Cuff (Capsule) Office Visit 03/23/2013 2:30p [facility] Jeremy Hendrickson 427.1 Paroxysmal Of Ivan AT [facility] Nimesh Valadez Ventricular Tachycardia 425.4 Cardiomyopathy Other Prim Office Visit 12/29/2012 2:30p [place] Jeremy Hendrickson 425.4 Cardiomyopathy Other Cardiology Of Nimesh Valadez Prim [employer] 427.69 Premature Beats Other Office Visit 12/01/2012 1:45p [place] Jeremy Hendrickson 425.4 Cardiomyopathy Other Cardiology Of Nimesh Valadez Prim [facility] 427.69 Premature Beats Other Office Visit 08/06/2010 Neurosurgery Saulo Barbosa 847.1 Sprains & Strains 10:00a Services Of Ivan Moffett M.D. 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 Displacement Thoracic W/O Myelopathy Office Visit 03/23/2010 Orthopedic Estiven Mcmahon, 820.8 FX Unspec Part Of 2:30p Services Of Salome Beavers Neck Of Femur Closed Office Visit 03/13/2010 Neurosurgery Saulo MChristy 722.11 Intervertebral Disc 9:30a Services Of Ivan Moffett M.D. Displacement Thoracic W/O Myelopathy Office Visit 11/20/2009 Orthopedic Alok, 716.96 Arthropathy Unspec 1:00p Services Of Salome Christopher, Lower Leg R.S.A.-O 719.46 Pain Joint Lower Leg Office Visit 10/06/2009 [facility] 427.1 Paroxysmal 4:00a jessica Dangelo M.D. Ventricular Hospitalists Tachycardia Office Visit 10/05/2009 [facility] 427.1 Paroxysmal 3:30a jessica Dangelo M.D. Ventricular Hospitalists Tachycardia Office Visit 10/04/2009 [facility] 427.1 Paroxysmal 3:30a jessica Dangelo M.D. Ventricular Hospitalists Tachycardia Office Visit 10/03/2009 [facility] 289.81 primary 2:45a jessica Dangelo hypercoagulable Hospitallilian [facility] state 794.31 Electrocardiogram (ECG) (EKG) Abnormal Office Visit 2009 [facility] 289.81 primary 4:30a jessica Dangelo M.D. hypercoagulable Hospitalists state 794.31 Electrocardiogram (ECG) (EKG) Abnormal Plan of Treatment Future Appointment(s):11/08/2018 1:00 pm - Carmen Beach NP at [facility]10/31/2018 1:30 pm - Alyssa Can MD at Orthopedic Services Of [facility]10/18/2018 7:30 am - Esthela Lucero PA-C at [facility]10/18/2018 7:30 am - Alyssa Can MD at [facility]02/21/2019 1:30 pm - Jeremy Valadez M.D. at [facility]10/06/2018 - Jeremy Valadez M.D.I42.9 Cardiomyopathy , unspecifiedFollow up:6 lkvfiyN23.810 Presence of automatic (implantable) cardiac kgpmivxbekvlfM74.0 Paroxysmal atrial vlmyoqllykqqB94.810 Encounter for preprocedural cardiovascular examination
--- OUTSIDE RECORDS SUMMARY | 2018-10-18 05:42 | XMS REPORT | Continuity of Care Document ---
:1940 External Reference #:[id number] Author Name Eliana Costa Care Team Providers Name Role Phone Cristy Weber MD Primary Care Physician Unavailable Payers Date Identification Numbers Payment Provider Subscriber Policy Number: [id number] Medicare Chaim Pedroza Margarito YOUNG PayID: [id number] [address] [place] [address] Policy Number: [id number] [facility] Chaim Pedroza Margarito YOUNG PayID: [id number] [address] [place] [address] Expires: 2012 Policy Number: [id number] [employer] Chaim Pedroza Margarito YOUNG PayID: [id number] [address] [address] EMILY Crawford [address] Advance Directives Type Date Description Status Comment Other Directive 12/21/2017 Health Care Proxy Current and Verified Problems Active Problems Provider Date Iron deficiency anemia Owen Richmond M.D.,FACP Onset: 12/03/2015 Note: FOBT positive Biventricular automatic implantable Owen Richmond M.D.,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 07/26/2018 Tablets day as needed for pain [...] pain Meclizine HCL 07/26/18 reports 60tabs H81.43 Ritesh 12/13/2016 - 12.5mg not taking 1-2 Pachikara, [...] Hendrickson 10/13/2016 - 5mg Tablets prior to [place], 01/20/2017 procedure, august MLyndon,FACP repeat x1 in 1 hour if no effect Valsartan 1/2 tab a day 45tabs Owen Hendrickson 06/18/2016 - 80mg Tablets (correction) [place], 01/24/2017 MLyndon,FACP Oxycodone-Acetaminoph 1 tabs by mouth 20tabs Alyssa Can, 03/18/2016 - en every 12 hours as MD 12/09/2016 5-325mg Tablets needed for pain Diazepam 1 tab 1 hr prior 4tabs Owen Hendrickson 03/05/2016 - 5mg Tablets to procedure, august [place], 06/18/2016 repeat X1 in 1 hr M.Emeka,FACP if no effect Tramadol HCL 1 tab twice a day 60tabs Alyssa Can, 03/03/2016 - 50mg as needed for MD 06/18/2016 Tablets pain Iferex 150 1 by mouth qod 60caps Owen Hendrickson 12/03/2015 - 150mg [place], 07/19/2017 Capsules Nimesh,FACP Naproxen 1/1-2 by mouth in 30tabs Owen Hendrickson 09/02/2015 - 500mg Tablets evening as needed Basilio, 10/18/2015 Nimesh,FACP Doxycycline Hyclate 1 tab by mouth 14tabs J44.1 Owen Hendrickson 03/18/2015 - twice a day for [place], 03/25/2015 100mg Tablets 1wks Nimesh,FACP Econazole Nitrate topical, as 30g Owen Hendrickson 11/27/2014 - 1% needed [place], 10/18/2015 Cream Nimesh,FACP Spiriva Respimat 2 puffs inhaled 12gm J44.9 Owen Hendrickson 10/29/2014 - daily ( taking 1 [place], 01/24/2017 2.5mcg/Act Aerosol puff daily ) Nimesh,FACP Xarelto 1 by mouth every 30tabs Jeremy Hendrickson 10/01/2014 - 20mg Tablets day Brand, Nimesh 01/23/2015 Spiriva Handihaler 1 inhalation po 3mon 491.20 Owen Hendrickson 03/08/2014 - qam [place], 03/08/2014 18mcg Capsules M.DChristy,FACP Ventolin HFA 2 puffs by mouth 1units 491.20 Owen Hendrickson 03/08/2014 - four times a day [place], 03/08/2014 108(90Base) mcg/Act as needed M.DChristy,FACP Aerosol Tudorza Pressair 1 puff twice a 180units 491.20 Anup Chambers, 03/08/2014 - day 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 10/29/2014 400mcg/Act Aerosol Proair HFA 2 puffs by mouth 1units J44.9 Owen Hendrickson 03/08/2014 - 108(90Base) every 4 hours as Basilio, 07/12/2016 mcg/Act Aerosol needed M.Emeka,FACP Triamcinolone apply twice a day 15gm 709.8 Anup Chambers, 01/15/2014 - Acetonide to affected area 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 03/18/2015 0.1% Cream Vitamin D3 High 1 po qd 30caps Owen Hendrickson 09/20/2013 - Potency [place], 10/18/2015 1000Unit M.DChristy,FACP Capsules Atenolol 1 tab [...] Code Status Date Vaccine Reaction Lot # 31466 Given 12/21/2017 Influenza Virus Vaccine, [id number] Quadrivalent, Split, Preservative Free 05448 Given 01/24/2017 Influenza Virus Vaccine, no immediate reaction, [id number] Quadrivalent, Split, pt tolerated well Preservative Free 51900 Given 03/09/2016 Influ Virus Vaccine, no immediate reaction [id number] Quadrivalent, Split Virus, noted .. .[place] [address] Given 03/18/2015 Pneumonia Vaccine [id number] 29636 Given 02/26/2015 Influenza Virus Vaccine, [id number] Quadrivalent, Split, Preservative Free 03151 Given 03/08/2014 Pneumococcal Conjugate [id number] Vaccine 13 Valent For Intramuscular Use 53086 Given 01/15/2014 Influenza Virus Vaccine, [id number] Quadrivalent, Split, Preservative Free Vital Signs Date Vital Result Comment 10/03/2018 9:35am Height 71 inches 5'11" Weight [...] Date Facility Test Result H/L Range Note Cath Panel 07/20/2018 [facility] Partial 38.8 seconds High 26.0-36.[address] [place] [address] PTT [phone] CBC Auto 07/20/2018 [facility] White Blood 4.6 10^3/uL N 3.5- 10.[address] [place] [address] [phone] Red Blood Count 4.05 10^6/uL Low 4.18-5.48 [...] Red Blood Cells % 0 Inr/Protime 07/20/2018 [facility] Inr 1.35 High 0.77-1.[address] [place], [place] [id number] [phone] Basic Metabolic 07/20/2018 [facility] Sodium 140 mmol/L N 135- [address] [place] [address] [phone] Potassium 4.4 mmol/L N 3.5-5.0 Chloride 108 mmol/L N 101-111 Co2 Carbon Dioxide 27 mmol/L N 22-32 Anion Gap 5 mmol/L N 2-11 Glucose 90 mg/dL N 70-100 Blood Urea Nitrogen 19 mg/dL N 6-24 Creatinine 0.90 mg/dL N 0.67-1.17 BUN/Creatinine Ratio 21.1 High 8-20 Calcium 8.9 mg/dL N 8.6-10.3 Egfr Non- 81.8 >60 Egfr 99.0 >60 1 Laboratory 07/20/2018 [facility] TSH (Thyroid Stim 2.00 N 0.34 -5.[address] Horm) mcIU/mL [place], [place] [id number] [phone] Laboratory 03/21/2018 [facility] Occult Blood pos x3 test finding Stool Diagnostic Lipid Profile 02/16/2018 [facility] Triglycerides 48 mg/dL 2 (Trig/Chol/HDL [address] ) [place] [address] [phone] Cholesterol 184 mg/dL 3 HDL Cholesterol 70.6 mg/dL 4 LDL Cholesterol 104 mg/dL 5 Laboratory test 02/16/2018 [facility] TSH (Thyroid 1.97 mcIU/mL N 0.34-5.[address] Stim Horm) [place] [address] [phone] Basic Metabolic 02/16/2018 [facility] Sodium 140 mmol/L N 135- [address] [place] [address] [phone] Potassium 4.1 mmol/L N 3.5-5.0 Chloride 107 mmol/L N 101-111 Co2 Carbon Dioxide 27 mmol/L N 22-32 Anion Gap 6 mmol/L N 2-11 Glucose 90 mg/dL N 70-100 Blood Urea Nitrogen 18 mg/dL N 6-24 Creatinine 0.89 mg/dL N 0.67-1.17 BUN/Creatinine Ratio 20.2 High 8-20 Calcium 8.9 mg/dL N 8.6-10.3 Egfr Non- 82.9 >60 Egfr 100.3 >60 6 CBC Auto Diff 02/16/2018 [facility] White Blood 4.5 10^3/uL N 3.5-10.[address] [place] [address] [phone] Red Blood Count 3.90 10^6/uL Low 4.00-5.40 [...] % 0.1 Iron & Iron Binding 02/16/2018 [facility] Iron 96 g/dL N 50- 212 [facility] [address] [place] [address] [phone] Unsaturated Iron Binding < 363 g/dL Total Iron Binding Capacity 378 g/dL N 250-450 Transferrin 270 mg/dL N 203-362 % Iron Saturation 25 % N 15-55 Laboratory 09/06/2017 [facility] TSH (Thyroid Stim 1.46 N 0.34 -5.60 test finding [facility] Horm) mcIU/[place] [address] [phone] Lipid Profile 09/06/2017 [facility] Triglycerides 44 mg/dL 7 (Trig/Chol/HDL [facility] ) [place] [address] [phone] Cholesterol 172 mg/dL 8 HDL Cholesterol 57.0 mg/dL 9 LDL Cholesterol 106 mg/dL 10 Basic Metabolic Panel 09/06/2017 [facility] Sodium 139 mmol/L N 139-145 [place] [address] [phone] Potassium 4.1 mmol/L N 3.5-5.0 Chloride 106 mmol/L N 101-111 Co2 Carbon Dioxide 27 mmol/L N 22-32 Anion Gap 6 mmol/L N 2-11 Glucose 88 mg/dL N 70-100 Blood Urea Nitrogen 22 mg/dL N 6-24 Creatinine 0.83 mg/dL N 0.67-1.17 BUN/Creatinine Ratio 26.5 High 8-20 Calcium 8.5 mg/dL Low 8.6-10.3 Egfr Non- 90.1 >60 Egfr 115.8 >60 11 Inr/Protime 09/06/2017 [facility] Inr 1.18 High 0.77-1.[address] [place], [place] [id number] [phone] CBC No Diff 09/06/2017 [facility] White Blood 4.1 10^3/uL N 3.5-10.[address] [place] [address] [phone] Red Blood Count 3.85 10^6/uL Low 4.0-5.4 Hemoglobin 12.2 g/dL Low 14.0-18.0 Hematocrit 36 % Low 42-52 Mean Corpuscular Volume 93 fL N 80-94 Mean Corpuscular Hemoglobin 32 pg High 27-31 Mean Corpuscular HGB Conc 34 g/dL N 31-36 Red Cell Distribution Width 14 % N 10.5-15 Platelet Count 174 10^3/uL N 150-450 Mean Platelet Volume 9.5 um3 N 7.4-10.4 Urine Culture And 12/09/2016 [facility] Urine SEE RESULT 12 , [address] [place] [address] [phone] Type & Screen 12/09/2016 [facility] Patient O Positive N [address] [place] [address] [phone] Antibody Screen NEGATIVE N Laboratory test 12/09/2016 [facility] Partial 36.6 High 26.0- 36.3 [address] [place] [address] Time PTT [phone] Urinalysis 12/09/2016 [facility] Urine Color Yellow N Profile [address] [place] [address] [phone] Urine Appearance Clear N Urine Specific Trosper 1.018 N 1.010-1.030 Urine pH 6.0 N 5-9 Urine Urobilinogen Negative N Negative Urine Ketones Negative N Negative Urine Protein Negative N Negative Urine Leukocytes Negative N Negative Urine Blood Negative N Negative Urine Nitrite Negative N Negative Urine Bilirubin Negative N Negative Urine Glucose Negative N Negative Inr/Protime 12/09/2016 [facility] Inr 1.21 High 0.89-1.[address] [place] [address] [phone] Laboratory test 12/09/2016 [facility] TSH 1.57 N 0.34-5.60 15 finding 101 (Thyroid mcIU/[place] [address] Stim Horm) [phone] Free T4 (Free Thyroxine) 1.40 ng/dL High 0.61-1.12 16 Basic Metabolic Panel 12/09/2016 [facility] Sodium 138 mmol/L N 133-145 [place] [address] [phone] Potassium 4.1 mmol/L N 3.5-5.0 Chloride 104 mmol/L N 101-111 Co2 Carbon Dioxide 29 mmol/L N 22-32 Anion Gap 5 mmol/L N 2-11 Glucose 82 mg/dL N 70-100 Blood Urea Nitrogen 19 mg/dL N 6-24 Creatinine 0.80 mg/dL N 0.67-1.17 BUN/Creatinine Ratio 23.8 High 8-20 Calcium 8.8 mg/dL N 8.6-10.3 Egfr Non- 94.0 N >60 Egfr 120.9 N >60 17 CBC No Diff 12/09/2016 [facility] White Blood 4.2 10^3/uL N 3.5-10.8 [place] [address] [phone] Red Blood Count 3.78 10^6/uL Low 4.0-5.4 Hemoglobin 12.5 g/dL Low 14.0-18.0 Hematocrit 37 % Low 42-52 Mean Corpuscular Volume 97 fL High 80-94 Mean Corpuscular Hemoglobin 33 pg High 27-31 Mean Corpuscular HGB Conc 34 g/dL N 31-36 Red Cell Distribution Width 13 % N 10.5-15 Platelet Count 169 10^3/uL N 150-450 Mean Platelet Volume 9 um3 N 7.4-10.4 Lipid Profile 08/02/2016 [facility] Triglycerides 44 mg/dL N 18 (Trig/Chol/HDL) [address] [place] [address] [phone] Cholesterol 176 mg/dL N 19 HDL Cholesterol 61.5 mg/dL N 20 LDL Cholesterol 106 mg/dL N 21 Laboratory test 08/02/2016 [facility] Ferritin 40.7 ng/mL N 24 -336 [address] [place] [address] [phone] Basic Metabolic 08/02/2016 [facility] Sodium 138 mmol/L N 133- [address] [place] [address] [phone] Potassium 4.1 mmol/L N 3.5-5.0 Chloride 105 mmol/L N 101-111 Co2 Carbon Dioxide 28 mmol/L N 22-32 Anion Gap 5 mmol/L N 2-11 Glucose 84 mg/dL N 70-100 Blood Urea Nitrogen 16 mg/dL N 6-24 Creatinine 0.78 mg/dL N 0.67-1.17 BUN/Creatinine Ratio 20.5 High 8-20 Calcium 9.0 mg/dL N 8.6-10.3 Egfr Non- 97.0 N >60 Egfr 124.8 N >60 23 CBC Auto Diff 08/02/2016 [facility] White Blood 3.9 10^3/uL N 3.5-10.[address] [place] [address] [phone] Red Blood Count 4.08 10^6/uL N 4.0-5.4 [...] Blood Cells % 0.1 N Xray 03/08/2016 [facility] MRI Shoulder <pending> [address] [place] [address] [phone] Laboratory test 11/28/2015 [facility] Ferritin 10.9 ng/mL Low 24-[address] [place] [address] [phone] CBC Auto Diff 11/24/2015 [facility] White Blood 5.0 10^3/uL N 3.5-[address] Count .8 [place] [address] [phone] Red Blood Count 3.87 10^6/uL Low 4.0-5.4 [...] % 0.1 N Stool For Blood 09/29/2015 [facility] Miscellaneous Lab negative X 3 Basic Metabolic 09/02/2015 [facility] Sodium 138 mmol/L N 133- [address] [place] [address] [phone] Potassium 4.2 mmol/L N 3.5-5.0 Chloride 106 mmol/L N 101-111 Co2 Carbon Dioxide 27 mmol/L N 22-32 Anion Gap 5 mmol/L N 2-11 Glucose 81 mg/dL N 70-100 Blood Urea Nitrogen 21 mg/dL N 6-24 Creatinine 0.85 mg/dL N 0.67-1.17 BUN/Creatinine Ratio 24.7 High 8-20 Calcium 8.8 mg/dL N 8.6-10.3 Egfr Non- 88.1 N >60 Egfr 113.3 N >60 24 Iron & Iron Binding 09/02/2015 [facility] Iron 74 g/dL N 50- 212 [address]acity [address] [place] [address] [phone] Unsaturated Iron Binding 286 g/dL N Total Iron Binding Capacity 360 g/dL N 250-450 % Iron Saturation 21 % N 15-55 Laboratory test 09/02/2015 [facility] Ferritin 10.5 ng/mL Low 24-336 finding [address] [place] [address] [phone] Lipid Profile 09/02/2015 [facility] Triglycerides 47 mg/dL N 25 (Trig/Chol/HDL) [address] [place] [address] [phone] Cholesterol 167 mg/dL N 26 HDL Cholesterol 62.9 mg/dL N 27 LDL Cholesterol 95 mg/dL N 28 Basic Metabolic Panel 09/27/2014 [facility] Sodium 137 mmol/L N 133-145 [address] [place] [address] [phone] Potassium 4.6 mmol/L N 3.5-5.0 Chloride 106 mmol/L N 101-111 Co2 Carbon Dioxide 26 mmol/L N 22-32 Anion Gap 5 mmol/L N 2-11 Glucose 79 mg/dL N 70-100 Blood Urea Nitrogen 16 mg/dL N 6-24 Creatinine 0.78 mg/dL N 0.67-1.17 BUN/Creatinine Ratio 20.5 High 8-20 Calcium 8.6 mg/dL N 8.6-10.3 Egfr Non- 97.6 N >60 Egfr 125.5 N >60 30 CBC Auto Diff 09/27/2014 [facility] White Blood 5.2 10^3/uL N 4.8-10.[address] [place] [address] [phone] Red Blood Count 4.02 10^6/uL N 4.0-5.4 [...] Nucleated Red Blood Cells % 0 N Pthi 09/12/2013 [facility] PTH Intact 3.9 pmol/L N 1.3-9.[address] [place] [address] [phone] Calcium (PTH Intact) 9.0 mg/dL N 8.6-10.3 Laboratory test 09/12/2013 [facility] Testosterone 410.78 N 240-[address] ng/[place] [address] [phone] Vitamin D, 25 09/12/2013 [facility] 25-Hydroxy <4.0 ng/mL N Hydroxy [address] Vitamin D2 [place] [address] [phone] 25-Hydroxy Vitamin D3 32 ng/mL N 25-Hydroxy Vitamin D Total 32 ng/mL N 31 Basic Metabolic Panel 07/06/2013 [facility] Sodium 136 mmol/L N 133-[address] [place] [address] [phone] Potassium 4.1 mmol/L N 3.7-5.6 Chloride 102 mmol/L N 101-111 Co2 Carbon Dioxide 30 mmol/L N 22-32 Anion Gap 4 mmol/L N 2-11 Glucose 82 mg/dL N 70-100 Blood Urea Nitrogen 18 mg/dL N 6-24 Creatinine 0.76 mg/dL N 0.67-1.17 BUN/Creatinine Ratio 23.7 High 8-20 Calcium 8.9 mg/dL N 8.6-10.3 Egfr Non- 100.8 N >60 Egfr 129.7 N >60 32 1 Because ethnic data is not always [...] 5 Kidney failure <15 (or dialysis) 2 Desirable: <150 Borderline High: 150-199 High: 200-499 Very High: >500 3 Desirable: <200 Borderline High: 200-239 High: >239 4 Low: <40 Desirable: 40-60 High: >60 5 Desirable: <100 Near Optimal: 100-129 Borderline High: 130-159 High: 160-189 Very High: >189 6 Because ethnic data is not always readily [...] 15-29 5 Kidney failure <15 (or dialysis) 7 Desirable: <150 Borderline High: 150-199 High: 200-499 Very High: >500 8 Desirable: <200 Borderline High: 200-239 High: >239 9 Low: <40 Desirable: 40-60 High: >60 10 Desirable: <100 Near Optimal: 100-129 Borderline High: 130-159 High: 160-189 Very High: >189 11 Because ethnic data is not always readily [...] 15-29 5 Kidney failure <15 (or dialysis) 12 12/22 13 SEE RESULT BELOW Name: CHAIM CORONADO : [address]: Alyssa Can MD Acct: [id number] Unit: [id number] AGE: 76 Location: PAT Re12/09/16 SEX: M Status: REG REF SPEC: [id number] AZUL: 12/09/16-[address]: Alyssa Can MD REQ: [id number] RECD: 12/09/16-1409 STATUS: COMP _ SOURCE: URINE SPDESC: ORDERED: Urine Culture QUERIES: Urine Source: Clean Catch Procedure Result Reported Site Urine Culture Final 12/10/16- 1316 ML No Growth (<1,000 CFU/mL) * ML - MAIN LAB ([facility]) . END OF REPORT * ML=Testing performed at Main Lab DEPARTMENT OF PATHOLOGY, [address] [place] [address] Omid Martinez M.D. Director [facility] # [id number] 14 12/22 15 12/22 16 12/22 17 Because ethnic data is not always readily [...] 15-29 5 Kidney failure <15 (or dialysis) 18 Desirable <150 Borderline high 150-199 High 200-499 Very High >500 19 Desirable <200 Borderline high 200-239 High >239 20 Low <40 Desirable: 40-60 High: >60 21 Desirable: <100 mg/dL Near Optimal: 100-129 mg/dL Borderline High: 130-159 mg/dL High: 160-189 mg/dL Very High: >189 mg/dL 22 FASTING 10 HOUR 23 Because ethnic data is not always readily [...] 15-29 5 Kidney failure <15 (or dialysis) 24 Because ethnic data is not always readily [...] 15-29 5 Kidney failure <15 (or dialysis) 25 Desirable <150 Borderline high 150-199 High 200-499 Very High >500 26 Desirable <200 Borderline high 200-239 High >239 27 Low <40 Desirable: 40-60 High: >60 28 Desirable: <100 mg/dL Near Optimal: 100-129 mg/dL Borderline High: 130-159 mg/dL High: 160-189 mg/dL Very High: >189 mg/dL 29 soon 30 Because ethnic data is not always [...] 5 Kidney failure <15 (or dialysis) 31 -- REFERENCE VALUE -- 25-HYDROXY D TOTAL (D2+D3) Optimum levels in the healthy population are 20-50, patients with bone disease may benefit from higher levels within this range. Test Performed by: [facility] - [address] [address] [employer] Singer: Jeff Lopez III, M.D. 32 Because ethnic data is not always [...] (or dialysis) Procedures Date Code Description Status 09/12/2018 11205 Cardioversion Completed 08/30/2018 18886 Interrogation Device Eval Remote Up To 30 Days Completed Analysis,Rev,RP 08/30/2018 84891 Interrogation Device Eval Remote Up To 30 Days Completed Analysis,Rev,RP 08/30/2018 43967 Icd Eval Sing,Dual,Multi Lead Remote Recpt Transm Tech Completed Rev Tech S 08/30/2018 90320 Icd Eval Sing,Dual,Multi Lead Remote Recpt Transm Tech Completed Rev Tech S 08/30/2018 52881 Icd Check Remote Up To 90 Days Single,Dual,Multiple Completed Lead 08/30/2018 35365 Icd Check Remote Up To 90 Days Single,Dual,Multiple Completed Lead 08/18/2018 65957 EKG Tracing & Interpretation Completed 08/09/2018 51346 Sleep Study Unattended,HRT Rate,Oxygen Sat,Resp Completed Effort/Airflow 07/20/2018 05562 Cardioversion Completed 07/20/2018 55484 EKG Tracing & Interpretation Completed 07/20/2018 29363 EKG, Interpretation Only Completed 07/20/2018 93948 Icd Eval With Iterative Adjustmt Multiple Lead System Completed 07/20/2018 53803 Icd Eval With Iterative Adjustmt Multiple Lead System Completed 07/20/2018 16151 Interrogation Implant Cardiovasc Monitor System Incl Completed Analysis Int 07/20/2018 52905 Interrogation Implant Cardiovasc Monitor System Incl Completed Analysis Int 05/29/2018 57361 Interrogation Device Eval Remote Up To [address] Completed Analysis,Rev,RP 05/29/2018 27387 Interrogation Device Eval Remote Up To [address] Completed Analysis,Rev,RP 05/29/2018 16716 Icd Eval Sing,Dual,Multi Lead Remote Recpt Transm Tech Completed Rev Tech S 05/29/2018 22312 Icd Eval Sing,Dual,Multi Lead Remote Recpt Transm Tech Completed Rev Tech S 05/29/2018 30770 Icd Check Remote Up To 90 Days Single,Dual,Multiple Completed Lead 05/29/2018 13352 Icd Check Remote Up To 90 Days Single,Dual,Multiple Completed Lead 05/16/2018 55497449 Colonoscopy Completed 04/28/2018 55325 Implantable Cardio System Loop Recorder Sys Remota Completed Data Acquistio 04/28/2018 42697 Interrogation Device Eval Remote Up To [address] Completed Analysis,Rev,RP 04/28/2018 59035 Implantable Cardio System Loop Recorder Sys Remota Completed Data Acquistio 04/28/2018 57285 Interrogation Device Eval Remote Up To [address] Completed Analysis,Rev,RP 03/30/2018 21717 Implantable Cardio System Loop Recorder Sys Remota Completed Data Acquistio 03/30/2018 37245 Interrogation Device Eval Remote Up To [address] Completed Analysis,Rev,RP 03/28/2018 88215 Implantable Cardio System Loop Recorder Sys Remota Completed Data Acquistio 03/28/2018 15094 Interrogation Device Eval Remote Up To [address] Completed Analysis,Rev,RP 03/07/2018 18151 Pulmonary Function><Bronchodil Completed 03/07/2018 94104 Diffusing Capacity Completed 03/07/2018 28721 Plethysmography Determination Lung Volumes & Per Completed Airway Resist 02/25/2018 67910 Icd Check Remote Up To 90 Days Single,Dual,Multiple Completed Lead 02/25/2018 17060 Interrogation Device Eval Remote Up To [address] Completed Analysis,Rev,RP 02/25/2018 66541 Icd Eval Sing,Dual,Multi Lead Remote Recpt Transm Tech Completed Rev Tech S 12/26/2017 74036 Interrogation Device Eval Remote Up To 30 Days Completed Analysis,Rev,RP 12/26/2017 98982 Interrogation Device Eval Remote Up To [address] Completed Analysis,Rev,RP 12/14/2017 60605 ECHO Transthoracic, Real-Time 2D With Doppler And Completed Color Flow 12/14/2017 77460 ECHO Transthoracic, Real-Time 2D With Doppler And Completed Color Flow 11/23/2017 81238 Interrogation Implant Cardiovasc Monitor System Incl Completed Analysis Int 11/23/2017 82568 Interrogation Implant Cardiovasc Monitor System Incl Completed Analysis Int 11/23/2017 76932 Icd Eval With Iterative Adjustmt Multiple Lead System Completed 11/23/2017 41983 Icd Eval With Iterative Adjustmt Multiple Lead System Completed 07/20/2017 49305 EKG Tracing & Interpretation Completed 02/01/2017 23740 Diffusing Capacity Completed 02/01/2017 78974 Plethysmography Determination Lung Volumes & Per Completed Airway Resist 02/01/2017 97511 Pulmonary Function><Bronchodil Completed 12/22/2016 14162 Arthroplasty,Total Shoulder Replacement (TSR) Completed 12/22/2016 08052 Arthroplasty,Total Shoulder Replacement (TSR) Completed 12/08/2016 66471 EKG Tracing & Interpretation Completed 08/24/2016 30121 ECHO Transthoracic, Real-Time 2D With Doppler And Completed Color Flow 07/27/2016 56016 EKG Tracing & Interpretation Completed 07/05/2016 93635 EKG, Interpretation Only Completed 07/05/2016 40537 Cardioversion Completed 06/18/2016 76199 EKG Tracing & Interpretation Completed 02/24/2016 66185 Inject/Drain Joint/Bursa Major W/O US Completed 11/18/2015 63981 EKG Tracing & Interpretation Completed 11/14/2015 97135 EKG, Interpretation Only Completed 11/14/2015 42660 Cardioversion Completed 11/13/2015 74425 EKG Tracing & Interpretation Completed 09/05/2015 47701 EKG Tracing & Interpretation Completed 01/20/2015 84268 Inject/Drain Joint/Bursa Major W/O US Completed 12/17/2014 07669 EKG Tracing & Interpretation Completed 12/04/2014 20959 Holter Monitoring 24 HR New Completed 11/25/2014 79866 Cardioversion Completed 10/21/2014 05402 Plethysmography Determination Lung Volumes & Per Completed Airway Resist 10/21/2014 12750 Pulmonary Function><Bronchodil Completed 09/27/2014 86803 EKG Tracing & Interpretation Completed 09/20/2014 73248 Holter Monitoring 24 HR New Completed 09/12/2014 44636 ECHO Transthoracic, Real-Time 2D With Doppler And Completed Color Flow 03/12/201413472 Inject/Drain Joint/Bursa Major W/O US Completed 11/27/201331368 Inject/Drain Joint/Bursa Major W/O US Completed 09/17/2013 [id number] Bone Mineral Density Test Completed 03/23/2013 48255 EKG Tracing & Interpretation Completed 03/15/2013 70683 Holter Monitoring 24 HR New Completed 12/13/2012 92608 ECHO Transthoracic, Real-Time 2D With Doppler And Completed Color Flow 12/07/2012 73234 Holter Monitoring 24 HR New Completed 08/26/2011 92310248 Colonoscopy Completed 03/23/2010 47103 Rad Exam; Hip Unilat Completed 03/23/2010 44941 Rad Exam; Pelvis Completed 12/24/2009 40303 Rad Exam; Hip Unilat Completed 12/24/2009 54057 Rad Exam; Pelvis Completed 11/20/200926249 Inject/Drain Joint/Bursa Major W/O US Completed 10/03/2009 19258 Percutaneous TX Of Femoral FX Completed Encounters Type Date Location Provider Dx Diagnosis Office Visit 08/18/2018 [facility] Jeremy Hendrickson I42.9 Cardiomyopathy, 12:00p Of Ivan Valadez M.D. unspecified Z95.810 Presence of automatic (implantable) cardiac defibrillator I48.0 Paroxysmal atrial fibrillation Office Visit 08/15/2018 Pulmonology And Carmen G47.33 Obstructive sleep 2:00p [facility] [place] apnea (adult) Ivan (pediatric) G47.50 Parasomnia, unspecified Office Visit 08/08/2018 Orthopedic Alyssa Can, M19.011 Primary 1:45p Services Of MD lucero, C.M.A. 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, right shoulder Office Visit 08/05/2018 1:30p Pulmonology And Myrna G47.9 Sleep disorder, Sleep Services Of MD Ronni unspecified [facility] G47.50 Parasomnia, unspecified R53.83 Other fatigue Office Visit 07/26/2018 11:20a [facility] Internal Cristy Weber, D64.9 Anemia, Medicine - Ccmob unspecified F51.8 Oth sleep disord not due to a sub or known physiol cond M54.5 Low back pain M54.2 Cervicalgia M19.011 Primary osteoarthritis, right shoulder R06.83 Snoring Office Visit 07/20/2018 10:00a [facility] Thuy Taylor, I48.0 Paroxysmal atrial Of Ivan Beavers fibrillation I42.9 Cardiomyopathy, unspecified I44.7 Left bundle-branch block, unspecified Z95.810 Presence of automatic (implantable) cardiac defibrillator Office Visit 07/18/2018 Orthopedic Alyssa Can, M19.011 Primary 2:00p Services Of MD lucero, C.M.A. right shoulder Office Visit 03/15/2018 [place] [facility] Hendrickson I48.0 Paroxysmal atrial 3:15p Cardiology Stephen Valadez M.D. 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 automatic [facility] (implantable) cardiac defibrillator I42.9 Cardiomyopathy, unspecified I49.3 Ventricular premature depolarization Office Visit 07/25/2017 2:00p [facility] Internal Owen Hendrickson D48.5 Neoplasm of Medicine - Tiny Richmond M.D.,FACP uncertain R behavior of skin R25.1 Tremor, unspecified R06.02 Shortness of breath Office Visit 07/21/2017 Orthopedic Alyssa Can, M19.011 Primary 1:15p Services Of MD lucero C.M.A. right shoulder Office Visit 07/20/2017 Michael Hendrickson I42.9 Cardiomyopathy, 3:00p Cardiology Of Nimesh Valadez unspecified [facility] I48.0 Paroxysmal atrial fibrillation R00.1 Bradycardia, unspecified Office Visit 03/24/2017 8:45a Orthopedic Alyssa Can, Z96.612 Presence of left Services Of artificial C.M.A. 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 fibrillation Hospitalists I42.9 Cardiomyopathy, unspecified D64.9 Anemia, unspecified Z96.619 Presence of unspecified artificial shoulder joint Office Visit 12/23/2016 [facility] Britney I48.91 Unspecified atrial 2:20p Assoc,jessica Orr M.D. 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 feet Suite R H81.43 Vertigo of central origin, bilateral Office Visit 12/08/2016 11:30a [facility] Jeremy Hendrickson I48.1 Persistent atrial Of Ivan Valadez M.D. fibrillation I42.9 Cardiomyopathy, unspecified R94.31 Abnormal electrocardiogram [ECG] [EKG] Z01.810 Encounter for preprocedural cardiovascular examination M19.012 Primary osteoarthritis, left shoulder Office Visit 09/03/2016 10:45a [facility] Jeremy Hendrickson I48.1 Persistent atrial Of Ivan Valadez M.D. fibrillation I42.9 Cardiomyopathy, unspecified R94.31 Abnormal electrocardiogram [ECG] [EKG] Office Visit 07/27/2016 1:00p [facility] Jeremy Hendrickson I48.1 Persistent atrial Of [employer] [place] [facility] [place]imesh Valadez fibrillation I42.9 Cardiomyopathy, unspecified R94.31 Abnormal electrocardiogram [ECG] [EKG] Office Visit 06/18/2016 [facility] Internal Owen Hendrickson Z01.810 Encounter for 1:00p Audra Richmond M.D.,BENEDICTO preprocedural Suite R cardiovascular examination M19.012 Primary osteoarthritis, left shoulder I48.0 Paroxysmal atrial fibrillation I42.9 Cardiomyopathy, unspecified D68.9 Coagulation defect, unspecified 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 shoulder S46.012A Strain of musc/tend the rotator cuff of left shoulder, init Office Visit 03/09/2016 [facility] Internal Owen Hendrickson M19.012 Primary 2:00p Audra Richmond M.D., FACP osteoarthritis, left Ccmob shoulder I48.0 Paroxysmal atrial fibrillation D64.9 Anemia, unspecified I42.9 Cardiomyopathy, unspecified Z23 Encounter for immunization Office Visit 02/24/2016 Cristobal Sweeney9.012 Primary 2:30p Services Of MD osteoarthritis, left C.M.A. shoulder S46.012A Strain of musc/tend the rotator cuff of left shoulder, init Office Visit 11/18/2015 1:30p [facility] Jeremy Hendrickson I48.0 Paroxysmal atrial Of [facility] [place] [facility] [place] Nimesh Valadez fibrillation R94.31 Abnormal electrocardiogram [ECG] [EKG] I42.9 Cardiomyopathy, unspecified Office Visit 09/05/2015 2:15p [facility] Jeremy Hendrickson I48.0 Paroxysmal atrial Of Ivan Valadez M.D. fibrillation I42.9 Cardiomyopathy, unspecified Office Visit 09/02/2015 3:00p [facility] Internal Owen Hendrickson Z00.01 Encounter for Audra Richmond M.D.,[facility] abnormal findings I48.0 Paroxysmal atrial fibrillation J42 Unspecified chronic bronchitis M19.012 Primary osteoarthritis, left shoulder I71.9 Aortic aneurysm of unspecified site, without rupture H91.92 Unspecified hearing loss, left ear Office Visit 03/21/2015 1:30p [facility] Jeremy Hendrickson I48.0 Paroxysmal atrial Of Ivan Valadez M.D. fibrillation I42.9 Cardiomyopathy, unspecified R94.31 Abnormal electrocardiogram [ECG] [EKG] Office Visit 03/18/2015 11:30a [facility] Chapin Hendrickson J44.1 Chronic Audra Richmond M.D.,[facility] obstructive [facility] w (acute) exacerbation Z23 Encounter for immunization Office Visit 01/20/2015 Orthopedic Alden Novoa, M19.211 Secondary 11:45a Services Of Nimesh osteoarthritis, C.M.A. right shoulder Office Visit 12/17/2014 [place] [facility] Hendrickson 427.31 Atrial Fibrillation 1:45p Cardiology Stephen Valadez M.D. C[place] [facility] [place] 425.4 Cardiomyopathy Other Prim Office Visit 10/28/2014 11:30a Orthopedic Alden Novoa, 726.19 Shoulder Disorders Services Of Nimesh Other Spec C.M.A. Office Visit 10/25/2014 2:00p [facility] Jeremy Hendrickson 427.31 Atrial Of Ivan Valadez M.D. Fibrillation 425.4 Cardiomyopathy Other Prim Office Visit 10/14/2014 1:40p [facility] Internal Owen Hendrickson 286.3 Coagulation Other Audra Richmond M.D.,[facility] Clotting Factors Suite R Congenital Deficiency 427.31 Atrial Fibrillation 491.20 Bronchitis Obstructive Chronic W/O Acute Exacerbation 726.19 Shoulder Disorders Other Spec 238.2 Neoplasm Uncertain Skin Office Visit 09/27/2014 3:15p Michael Hendrickson 425.4 Cardiomyopathy Other Cardiology Of Nimesh Valadez Prim [facility] 427.31 Atrial Fibrillation Office Visit 03/08/2014 11:00a [facility] Internal Owen Hendrickson V70.0 Examination Medicine - Nimesh Richmond,[facility] 427.1 Paroxysmal Ventricular Tachycardia 715.91 Osteoarthrosis Unspec Genlzd Or Localized Shoulder 491.20 Bronchitis Obstructive Chronic W/O Acute Exacerbation V03.82 Streptococcus Pneumoniae Vaccination Spec Other Office Visit 01/15/2014 3:00p [facility] Internal Bladimir Bond, 789.69 Tenderness 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 Localized Shoulder Office Visit 11/27/2013 1:30p Orthopedic Alden Novoa 715.91 Osteoarthrosis Services Of Nimesh Unspec Genlzd Or C.M.A. Localized Shoulder Office Visit 10/12/2013 2:20p [facility] Internal Owen Hendrickson 733.01 [facility]oporosis [facility] M[facility].,[facility] 715.91 Osteoarthrosis Unspec Genlzd Or Localized Shoulder Office Visit 09/13/2013 11:30a [facility] Jeremy Hendrickson 427.1 Paroxysmal Of Ivan Valadez M.D. Ventricular Tachycardia 427.69 Premature Beats Other 425.4 Cardiomyopathy Other Prim Office Visit 09/12/2013 1:00p [facility] Internal Owen Hendrickson 425.4 Cardiomyopathy Other Medicine Justin Richmond M.D.,[facility] Prim [facility] 733.09 Osteoporosis Other 724.2 Lumbago 333.1 Tremor Essential & Other Forms 840.4 Sprains & Strains Rotator Cuff (Capsule) Office Visit 03/23/2013 2:30p [facility] Jeremy Hendrickson 427.1 Paroxysmal Of [facility] [place] [facility] [place]imesh Valadez Ventricular Tachycardia 425.4 Cardiomyopathy Other Prim Office Visit 12/29/2012 2:30p Michael Hendrickson 425.4 Cardiomyopathy Other Cardiology Of Nimesh Valadez Prim [facility] 427.69 Premature Beats Other Office Visit 12/01/2012 1:45p Michael Hendrickson 425.4 Cardiomyopathy Other Cardiology Of Nimesh Valadez Prim [facility] 427.69 Premature Beats Other Office Visit 08/06/2010 Neurosurgery Saulo Barbosa 847.1 Sprains & Strains 10:00a Services Of Ivan Moffett M.D. 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 Displacement Thoracic W/O Myelopathy Office Visit 03/23/2010 Orthopedic Estiven Mcmahon, 820.8 FX Unspec Part Of 2:30p Services Of Salome Beavers Neck Of Femur Closed Office Visit 03/13/2010 Neurosurgery Saulo Barbosa 722.11 Intervertebral Disc 9:30a Services Of Ivan Moffett M.D. Displacement Thoracic W/O Myelopathy Office Visit 11/20/2009 Orthopedic Alok, 716.96 Arthropathy Unspec 1:00p Services Of Salome Rios Lower Leg R.S.A.-O 719.46 Pain Joint Lower Leg Office Visit 10/06/2009 [facility] Eric 427.1 Paroxysmal 4:00a jessica Dangelo M.D. Ventricular Hospitalists Tachycardia Office Visit 10/05/2009 [facility] Eric 427.1 Paroxysmal 3:30a jessica Dangelo M.D. Ventricular Hospitalists Tachycardia Office Visit 10/04/2009 [facility] Eric 427.1 Paroxysmal 3:30a jessica Dangelo M.D. Ventricular Hospitalists Tachycardia Office Visit 10/03/2009 [facility] 289.81 primary 2:45a jessica Dangelo hypercoagulable Hospitallilian Beavers state 794.31 Electrocardiogram (ECG) (EKG) Abnormal Office Visit 2009 [facility] 289.81 primary 4:30a Assoc,jessica Xie M.D. hypercoagulable Hospitalists state 794.31 Electrocardiogram (ECG) (EKG) Abnormal Plan of Treatment Future Appointment(s):10/31/2018 1:30 pm - Alyssa Can MD at [facility]10/18/2018 7:30 am - Esthela Lucero PA-C at [facility]10/06/2018 11:30 am - Ica Pacer Schedule at [facility]10/06/2018 12:15 pm - Jeremy Valadez M.D. at [facility] 7:30 am - Alyssa Can MD at [facility]02/21/2019 1:30 pm - Jeremy Valadez M.D. at [facility]10/04/2018 2:00 pm - Carmen Beach NP at [facility]10/03/2018 - Alyssa Can MDZ01.818 Encounter for other preprocedural examinationFollow up :Follow up: 2 weeks after xzcybzdV12.011 Primary osteoarthritis, right shoulder
--- OUTSIDE RECORDS SUMMARY | 2018-10-18 05:42 | XMS REPORT | Continuity of Care Document ---
:1940 External Reference #:[id number] Author Name KaterinaMari hinton Care Team Providers Name Role Phone Cristy Weber MD Primary Care Physician Unavailable Payers Date Identification Numbers Payment Provider Subscriber Policy Number: [id number] Medicare Chaim Pedroza Margarito YOUNG PayID: [id number] [address] [place] [address] Policy Number: [id number] [facility] Chaim Pedroza Margarito YOUNG PayID: [id number] [address] [place] [address] Expires: 2012 Policy Number: [id number] [employer] Chaim Pedroza Margarito YOUNG PayID: [id number] [address] [address] EMILY Crawford [address] Advance Directives Type Date Description Status Comment Other Directive 12/21/2017 Health Care Proxy Current and Verified Problems Active Problems Provider Date Iron deficiency anemia Owen Richmond M.D.,FACP Onset: 12/03/2015 Note: FOBT positive Biventricular automatic implantable Owen Richmond M.D.,FACP Onset: 02/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.,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 Primary [...] Marital Status Lives With 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 Cigarette Use Quit 35 Years Ago ETOH Use 01/24/2017 Denies alcohol use Tobacco Use Start: Unknown End: Patient is a former Unknown smoker Recreational Drug Use Denies Drug Use Smoking Status Reviewed: 10/04/18 Patient is a former smoker Exercise Type/Frequency [...] 03/16/2017 - 50mg three times a Stacy, [employer] 07/26/2018 Tablets day as needed for pain [...] Hendrickson 10/13/2016 - 5mg Tablets prior to [place], 01/20/2017 procedure, august Nimesh,FACP repeat x1 in 1 hour if no effect Valsartan 1/2 tab a day 45tabs Owen Hendrickson 06/18/2016 - 80mg Tablets (correction) [place], 01/24/2017 MLyndon,FACP Oxycodone-Acetaminoph 1 tabs by mouth 20tabs Alyssa Can, 03/18/2016 - en every 12 hours as MD 12/09/2016 5-325mg Tablets needed for pain Diazepam 1 tab 1 hr prior 4tabs Owen Hendrickson 03/05/2016 - 5mg Tablets to procedure, august Basilio, 06/18/2016 repeat X1 in 1 hr M.Eemka,FACP if no effect Tramadol HCL 1 tab [...] Hendrickson 03/18/2015 - twice a day for [place], 03/25/2015 100mg Tablets 1wks Nimesh,FACP Econazole Nitrate topical, as 30g Owen Hendrickson 11/27/2014 - 1% needed [place], 10/18/2015 Cream Nimesh,FACP Spiriva Respimat 2 puffs inhaled 12gm J44.9 Owen Hendrickson 10/29/2014 - daily ( taking 1 [place], 01/24/2017 2.5mcg/Act Aerosol puff daily ) Nimesh,FACP Xarelto 1 by mouth every 30tabs Jeremy Hendrickson 10/01/2014 - 20mg Tablets day Brand, Nimesh 01/23/2015 Spiriva Handihaler 1 inhalation po 3mon 491.20 Owen Hendrickson 03/08/2014 - qam [place], 03/08/2014 18mcg Capsules M.DChristy,FACP Ventolin HFA 2 puffs by mouth 1units 491.20 wOen Hendrickson 03/08/2014 - four times a day [place], 03/08/2014 108(90Base) mcg/Act as needed M.DChristy,FACP Aerosol Tudorza Pressair 1 puff twice a 180units 491.20 Anup Chambers, 03/08/2014 - day [employer] 10/29/2014 400mcg/Act Aerosol Proair HFA 2 puffs by mouth 1units J44.9 Owen Hendrickson 03/08/2014 - 108(90Base) every 4 hours as Basilio, 07/12/2016 mcg/Act Aerosol needed M.Emeka,FACP Triamcinolone apply twice a day 15gm 709.8 Anup Chambers, 01/15/2014 - Acetonide to affected area [employer] 03/18/2015 0.1% Cream Vitamin D3 High 1 po qd 30caps Owen Hendrickson 09/20/2013 - Potency [place], 10/18/2015 1000Unit M.DChristy,FACP Capsules Atenolol 1 tab [...] Code Status Date Vaccine Reaction Lot # 43157 Given 12/21/2017 Influenza Virus Vaccine, [id number] Quadrivalent, Split, Preservative Free 11705 Given 01/24/2017 Influenza Virus Vaccine, no immediate reaction, [id number] Quadrivalent, Split, pt tolerated well Preservative Free 66723 Given 03/09/2016 Influ Virus Vaccine, no immediate reaction [id number] Quadrivalent, Split Virus, noted .. [place] [address] Given 03/18/2015 Pneumonia Vaccine [id number] 68243 Given 02/26/2015 Influenza Virus Vaccine, [id number] Quadrivalent, Split, Preservative Free 37682 Given 03/08/2014 Pneumococcal Conjugate [id number] Vaccine 13 Valent For Intramuscular Use 33823 Given 01/15/2014 Influenza Virus Vaccine, [id number] Quadrivalent, Split, Preservative Free Vital Signs Date Vital Result Comment 10/04/2018 1:24pm Height 71 inches 5'11" Weight [...] Result H/L Range Note Cath Panel 07/20/2018 [facility] Partial 38.8 seconds High 26.0-36.[address] [address] PTT [phone] CBC Auto 07/20/2018 [facility] White Blood 4.6 10^3/uL N 3.5- 10.[address] [place] [address] [phone] Red Blood Count 4.05 10^6/uL Low 4.18-5.48 [...] Red Blood Cells % 0 Inr/Protime 07/20/2018 [facility] Inr 1.35 High 0.77-1.[address] [place] [address] [phone] Basic Metabolic 07/20/2018 [facility] Sodium 140 mmol/L N 135- [address] [place] [address] [phone] Potassium 4.4 mmol/L N 3.5-5.0 Chloride 108 mmol/L N 101-111 Co2 Carbon Dioxide 27 mmol/L N 22-32 Anion Gap 5 mmol/L N 2-11 Glucose 90 mg/dL N 70-100 Blood Urea Nitrogen 19 mg/dL N 6-24 Creatinine 0.90 mg/dL N 0.67-1.17 BUN/Creatinine Ratio 21.1 High 8-20 Calcium 8.9 mg/dL N 8.6-10.3 Egfr Non- 81.8 >60 Egfr 99.0 >60 1 Laboratory 07/20/2018 [facility] TSH (Thyroid Stim 2.00 N 0.34 -5.[address] Horm) mcIU/[place] [address] [phone] Laboratory 03/21/2018 [facility] Occult Blood pos x3 test finding Stool Diagnostic Lipid Profile 02/16/2018 [facility] Triglycerides 48 mg/dL 2 (Trig/Chol/HDL [address] ) [place] [address] [phone] Cholesterol 184 mg/dL 3 HDL Cholesterol 70.6 mg/dL 4 LDL Cholesterol 104 mg/dL 5 Laboratory test 02/16/2018 [facility] TSH (Thyroid 1.97 mcIU/mL N 0.34-5.[address] Stim Horm) [place] [address] [phone] Basic Metabolic 02/16/2018 [facility] Sodium 140 mmol/L N 135- [address] [place] [address] [phone] Potassium 4.1 mmol/L N 3.5-5.0 Chloride 107 mmol/L N 101-111 Co2 Carbon Dioxide 27 mmol/L N 22-32 Anion Gap 6 mmol/L N 2-11 Glucose 90 mg/dL N 70-100 Blood Urea Nitrogen 18 mg/dL N 6-24 Creatinine 0.89 mg/dL N 0.67-1.17 BUN/Creatinine Ratio 20.2 High 8-20 Calcium 8.9 mg/dL N 8.6-10.3 Egfr Non- 82.9 >60 Egfr 100.3 >60 6 CBC Auto Diff 02/16/2018 [facility] White Blood 4.5 10^3/uL N 3.5-10.[address] [place] [address] [phone] Red Blood Count 3.90 10^6/uL Low 4.00-5.40 [...] % 0.1 Iron & Iron Binding 02/16/2018 [facility] Iron 96 g/dL N 50- [address] [place] [address] [phone] Unsaturated Iron Binding < 363 g/dL Total Iron Binding Capacity 378 g/dL N 250-450 Transferrin 270 mg/dL N 203-362 % Iron Saturation 25 % N 15-55 CBC No Diff 09/06/2017 [facility] White Blood 4.1 10^3/uL N 3.5-10.[address] [place] [address] [phone] Red Blood Count 3.85 10^6/uL Low 4.0-5.4 Hemoglobin 12.2 g/dL Low 14.0-18.0 Hematocrit 36 % Low 42-52 Mean Corpuscular Volume 93 fL N 80-94 Mean Corpuscular Hemoglobin 32 pg High 27-31 Mean Corpuscular HGB Conc 34 g/dL N 31-36 Red Cell Distribution Width 14 % N 10.5-15 Platelet Count 174 10^3/uL N 150-450 Mean Platelet Volume 9.5 um3 N 7.4-10.4 Laboratory 09/06/2017 [facility] TSH (Thyroid Stim 1.46 N 0.34 -5.60 test finding [facility] Horm) mcIU/[place] [address] [phone] Lipid Profile 09/06/2017 [facility] Triglycerides 44 mg/dL 7 (Trig/Chol/HDL [facility] ) [place] [address] [phone] Cholesterol 172 mg/dL 8 HDL Cholesterol 57.0 mg/dL 9 LDL Cholesterol 106 mg/dL 10 Basic Metabolic Panel 09/06/2017 [facility] Sodium 139 mmol/L N 139-145 [place] [address] [phone] Potassium 4.1 mmol/L N 3.5-5.0 Chloride 106 mmol/L N 101-111 Co2 Carbon Dioxide 27 mmol/L N 22-32 Anion Gap 6 mmol/L N 2-11 Glucose 88 mg/dL N 70-100 Blood Urea Nitrogen 22 mg/dL N 6-24 Creatinine 0.83 mg/dL N 0.67-1.17 BUN/Creatinine Ratio 26.5 High 8-20 Calcium 8.5 mg/dL Low 8.6-10.3 Egfr Non- 90.1 >60 Egfr 115.8 >60 11 Inr/Protime 09/06/2017 [facility] Inr 1.18 High 0.77-1.02 [place] [address] [phone] Basic Metabolic 12/09/2016 [facility] Sodium 138 mmol/L N 133- 145 12 [place] [address] [phone] Potassium 4.1 mmol/L N 3.5-5.0 Chloride 104 mmol/L N 101-111 Co2 Carbon Dioxide 29 mmol/L N 22-32 Anion Gap 5 mmol/L N 2-11 Glucose 82 mg/dL N 70-100 Blood Urea Nitrogen 19 mg/dL N 6-24 Creatinine 0.80 mg/dL N 0.67-1.17 BUN/Creatinine Ratio 23.8 High 8-20 Calcium 8.8 mg/dL N 8.6-10.3 Egfr Non- 94.0 N >60 Egfr 120.9 N >60 13 Laboratory test 12/09/2016 [facility] TSH (Thyroid 1.57 mcIU/mL N 0.34-5.60 [address] Stim Horm) [place] [address] [phone] Free T4 (Free Thyroxine) 1.40 ng/dL High 0.61-1.12 15 Inr/Protime 12/09/2016 [facility] Inr 1.21 High 0.89-1.[address] [place] [address] [phone] CBC No Diff 12/09/2016 [facility] White Blood 4.2 10^3/uL N 3.5-10.[address] [place] [address] [phone] Red Blood Count 3.78 10^6/uL Low 4.0-5.4 Hemoglobin 12.5 g/dL Low 14.0-18.0 Hematocrit 37 % Low 42-52 Mean Corpuscular Volume 97 fL High 80-94 Mean Corpuscular Hemoglobin 33 pg High 27-31 Mean Corpuscular HGB Conc 34 g/dL N 31-36 Red Cell Distribution Width 13 % N 10.5-15 Platelet Count 169 10^3/uL N 150-450 Mean Platelet Volume 9 um3 N 7.4-10.4 Urinalysis Profile 12/09/2016 [facility] Urine Color Yellow N [address] [place] [address] [phone] Urine Appearance Clear N Urine Specific [place] 1.018 N 1.010-1.030 Urine pH 6.0 N 5-9 Urine Urobilinogen Negative N Negative Urine Ketones Negative N Negative Urine Protein Negative N Negative Urine Leukocytes Negative N Negative Urine Blood Negative N Negative Urine Nitrite Negative N Negative Urine Bilirubin Negative N Negative Urine Glucose Negative N Negative Laboratory test 12/09/2016 [facility] Partial 36.6 seconds High 26.0-36.3 [address] [place] [address] Time PTT [phone] Type & Screen 12/09/2016 [facility] Patient O Positive N [address] [place] [address] [phone] Antibody Screen NEGATIVE N Urine Culture And 12/09/2016 [facility] Urine Culture SEE RESULT [address] [place] [address] [phone] Lipid Profile 08/02/2016 [facility] Triglycerides 44 mg/dL N 18 (Trig/Chol/HDL) [address] [place] [address] [phone] Cholesterol 176 mg/dL N 19 HDL Cholesterol 61.5 mg/dL N 20 LDL Cholesterol 106 mg/dL N 21 Laboratory test 08/02/2016 [facility] Ferritin 40.7 ng/mL N 24 -336 [address] [place] [address] [phone] Basic Metabolic 08/02/2016 [facility] Sodium 138 mmol/L N 133- [address] [place] [address] [phone] Potassium 4.1 mmol/L N 3.5-5.0 Chloride 105 [...] N >60 23 CBC Auto Diff 08/02/2016 [facility] White Blood 3.9 10^3/uL N 3.5-10.[address] [place] [address] [phone] Red Blood Count 4.08 10^6/uL N 4.0-5.4 [...] Blood Cells % 0.1 N Xray 03/08/2016 [facility] MRI Shoulder <pending> [address] Left [place] [address] [phone] Laboratory test 11/28/2015 [facility] Ferritin 10.9 ng/mL Low 24-[address] [place] [address] [phone] CBC Auto Diff 11/24/2015 [facility] White Blood 5.0 10^3/uL N 3.5-[address] Count .8 [place] [address] [phone] Red Blood Count 3.87 10^6/uL Low 4.0-5.4 [...] % 0.1 N Stool For Blood 09/29/2015 [facility] Miscellaneous Lab negative X 3 Lipid Profile 09/02/2015 [facility] Triglycerides 47 mg/dL N 24 (Trig/Chol/HDL) [address] [place] [address] [phone] Cholesterol 167 mg/dL N 25 HDL Cholesterol 62.9 mg/dL N 26 LDL Cholesterol 95 mg/dL N 27 Basic Metabolic Panel 09/02/2015 [facility] Sodium 138 mmol/L N 133-145 [address] [place] [address] [phone] Potassium 4.2 mmol/L N 3.5-5.0 Chloride 106 mmol/L N 101-111 Co2 Carbon Dioxide 27 mmol/L N 22-32 Anion Gap 5 mmol/L N 2-11 Glucose 81 mg/dL N 70-100 Blood Urea Nitrogen 21 mg/dL N 6-24 Creatinine 0.85 mg/dL N 0.67-1.17 BUN/Creatinine Ratio 24.7 High 8-20 Calcium 8.8 mg/dL N 8.6-10.3 Egfr Non- 88.1 N >60 Egfr 113.3 N >60 28 Laboratory test 09/02/2015 [facility] Ferritin 10.5 ng/mL Low 24-336 finding [address] [place] [address] [phone] Iron & Iron Binding 09/02/2015 [facility] Iron 74 g/dL N 50- 212 Capacity [address] [place] [address] [phone] Unsaturated Iron Binding 286 g/dL N Total Iron Binding Capacity 360 g/dL N 250-450 % Iron Saturation 21 % N 15-55 CBC Auto Diff 09/27/2014 [facility] White Blood 5.2 10^3/uL N 4.8-10.[address] [place] [address] [phone] Red Blood Count 4.02 10^6/uL N 4.0-5.4 [...] % 0 N Basic Metabolic Panel 09/27/2014 [facility] Sodium 137 mmol/L N 133-[address] [place] [address] [phone] Potassium 4.6 mmol/L N 3.5-5.0 Chloride 106 mmol/L N 101-111 Co2 Carbon Dioxide 26 mmol/L N 22-32 Anion Gap 5 mmol/L N 2-11 Glucose 79 mg/dL N 70-100 Blood Urea Nitrogen 16 mg/dL N 6-24 Creatinine 0.78 mg/dL N 0.67-1.17 BUN/Creatinine Ratio 20.5 High 8-20 Calcium 8.6 mg/dL N 8.6-10.3 Egfr Non- 97.6 N >60 Egfr 125.5 N >60 30 Laboratory test 09/12/2013 [facility] Testosterone 410.78 N 240-[address] ng/[place] [address] [phone] Vitamin D, 25 09/12/2013 [facility] 25-Hydroxy <4.0 ng/mL N Hydroxy [address] Vitamin D2 [place] [address] [phone] 25-Hydroxy Vitamin D3 32 ng/mL N 25-Hydroxy Vitamin D Total 32 ng/mL N 31 Pthi 09/12/2013 [facility] PTH Intact 3.9 pmol/L N 1.3-9.[address] [place] [address] [phone] Calcium (PTH Intact) 9.0 mg/dL N 8.6-10.3 Basic Metabolic Panel 07/06/2013 [facility] Sodium 136 mmol/L N 133-145 [address] [place] [address] [phone] Potassium 4.1 mmol/L N 3.7-5.6 Chloride 102 [...] failure <15 (or dialysis) 12 12/22 13 Because ethnic data is not always [...] 5 Kidney failure <15 (or dialysis) 14 AA 12/22 15 AA 12/22 16 AA 12/22 17 SEE RESULT BELOW Name: CHAIM CORONADO : [address]: Alyssa Can MD Acct: [id number] Unit: [id number] AGE: 76 Location: [facility] Re12/09/16 SEX: M Status: REG REF SPEC: [id number] AZUL: 12/09/16-12[address] [facility] [address]: Alyssa Can MD REQ: [id number] RECD: 12/09/16079 STATUS: COMP _ SOURCE: URINE SPDESC: ORDERED: Urine Culture QUERIES: Urine Source: Clean Catch Procedure Result Reported Site Urine Culture Final 12/10/16- 1316 ML No Growth (<1,000 CFU/mL) * ML - MAIN LAB ([facility]) . END OF REPORT * ML=Testing performed at Main Lab DEPARTMENT OF PATHOLOGY, [address] [place] [address] Omid Martinez M.D. Director [facility] # [id number] 18 Desirable <150 Borderline high 150-199 High [...] 5 Kidney failure <15 (or dialysis) 24 Desirable <150 Borderline high 150-199 High 200-499 Very High >500 25 Desirable <200 Borderline high 200-239 High >239 26 Low <40 Desirable: 40-60 High: >60 27 Desirable: <100 mg/dL Near Optimal: 100-129 mg/dL Borderline High: 130-159 mg/dL High: 160-189 mg/dL Very High: >189 mg/dL 28 Because ethnic data is not always readily [...] 15-29 5 Kidney failure <15 (or dialysis) 29 soon 30 Because ethnic data is [...] levels within this range. Test Performed by: [facility] - [address] [address] Entry Level Account Executive: Jeff Lopez III, M.D. 32 Because ethnic [...] dialysis) Procedures Date Code Description Status 09/12/2018 31414 Cardioversion Completed 08/30/2018 49009 Interrogation Device Eval Remote Up To 30 Days Completed Analysis,Rev,RP 08/30/2018 52538 Interrogation Device Eval Remote Up To 30 Days Completed Analysis,Rev,RP 08/30/2018 10944 Icd Eval Sing,Dual,Multi Lead Remote Recpt Transm Tech Completed Rev Tech S 08/30/2018 23061 Icd Eval Sing,Dual,Multi Lead Remote Recpt Transm Tech Completed Rev Tech S 08/30/2018 54260 Icd Check Remote Up To 90 Days Single,Dual,Multiple Completed Lead 08/30/2018 82190 Icd Check Remote Up To 90 Days Single,Dual,Multiple Completed Lead 08/18/2018 86419 EKG Tracing & Interpretation Completed 08/09/2018 32599 Sleep Study Unattended,HRT Rate,Oxygen Sat,Resp Completed Effort/Airflow 07/20/2018 24770 Cardioversion Completed 07/20/2018 68333 EKG Tracing & Interpretation Completed 07/20/2018 60979 EKG, Interpretation Only Completed 07/20/2018 53252 Icd Eval With Iterative Adjustmt Multiple Lead System Completed 07/20/2018 38400 Icd Eval With Iterative Adjustmt Multiple Lead System Completed 07/20/2018 24213 Interrogation Implant Cardiovasc Monitor System Incl Completed Analysis Int 07/20/2018 71986 Interrogation Implant Cardiovasc Monitor System Incl Completed Analysis Int 05/29/2018 28364 Interrogation Device Eval Remote Up To [address] Completed Analysis,Rev,RP 05/29/2018 06552 Interrogation Device Eval Remote Up To [address] Completed Analysis,Rev,RP 05/29/2018 19372 Icd Eval Sing,Dual,Multi Lead Remote Recpt Transm Tech Completed Rev Tech S 05/29/2018 14175 Icd Eval Sing,Dual,Multi Lead Remote Recpt Transm Tech Completed Rev Tech S 05/29/2018 41916 Icd Check Remote Up To 90 Days Single,Dual,Multiple Completed Lead 05/29/2018 77707 Icd Check Remote Up To 90 Days Single,Dual,Multiple Completed Lead 05/16/2018 76507626 Colonoscopy Completed 04/28/2018 03543 Implantable Cardio System Loop Recorder Sys Remota Completed Data Acquistio 04/28/2018 46311 Interrogation Device Eval Remote Up To [address] Completed Analysis,Rev,RP 04/28/2018 22311 Implantable Cardio System Loop Recorder Sys Remota Completed Data Acquistio 04/28/2018 32238 Interrogation Device Eval Remote Up To [address] Completed Analysis,Rev,RP 03/30/2018 66195 Implantable Cardio System Loop Recorder Sys Remota Completed Data Acquistio 03/30/2018 85527 Interrogation Device Eval Remote Up To [address] Completed Analysis,Rev,RP 03/28/2018 24882 Implantable Cardio System Loop Recorder Sys Remota Completed Data Acquistio 03/28/2018 52522 Interrogation Device Eval Remote Up To [address] Completed Analysis,Rev,RP 03/07/2018 49583 Pulmonary Function><Bronchodil Completed 03/07/2018 64769 Diffusing Capacity Completed 03/07/2018 86322 Plethysmography Determination Lung Volumes & Per Completed Airway Resist 02/25/2018 09111 Icd Check Remote Up To 90 Days Single,Dual,Multiple Completed Lead 02/25/2018 09596 Interrogation Device Eval Remote Up To [address] Completed Analysis,Rev,RP 02/25/2018 99169 Icd Eval Sing,Dual,Multi Lead Remote Recpt Transm Tech Completed Rev Tech S 12/26/2017 35828 Interrogation Device Eval Remote Up To [address] Completed Analysis,Rev,RP 12/26/2017 12552 Interrogation Device Eval Remote Up To [address] Completed Analysis,Rev,RP 12/14/2017 10285 ECHO Transthoracic, Real-Time 2D With Doppler And Completed Color Flow 12/14/2017 34525 ECHO Transthoracic, Real-Time 2D With Doppler And Completed Color Flow 11/23/2017 99575 Interrogation Implant Cardiovasc Monitor System Incl Completed Analysis Int 11/23/2017 57488 Interrogation Implant Cardiovasc Monitor System Incl Completed Analysis Int 11/23/2017 15125 Icd Eval With Iterative Adjustmt Multiple Lead System Completed 11/23/2017 44459 Icd Eval With Iterative Adjustmt Multiple Lead System Completed 07/20/2017 09448 EKG Tracing & Interpretation Completed 02/01/2017 08061 Diffusing Capacity Completed 02/01/2017 10770 Plethysmography Determination Lung Volumes & Per Completed Airway Resist 02/01/2017 71789 Pulmonary Function><Bronchodil Completed 12/22/2016 78804 Arthroplasty,Total Shoulder Replacement (TSR) Completed 12/22/2016 79001 Arthroplasty,Total Shoulder Replacement (TSR) Completed 12/08/2016 74478 EKG Tracing & Interpretation Completed 08/24/2016 61460 ECHO Transthoracic, Real-Time 2D With Doppler And Completed Color Flow 07/27/2016 64492 EKG Tracing & Interpretation Completed 07/05/2016 69556 EKG, Interpretation Only Completed 07/05/2016 77896 Cardioversion Completed 06/18/2016 10218 EKG Tracing & Interpretation Completed 02/24/2016 81781 Inject/Drain Joint/Bursa Major W/O US Completed 11/18/2015 44877 EKG Tracing & Interpretation Completed 11/14/2015 25793 EKG, Interpretation Only Completed 11/14/2015 03033 Cardioversion Completed 11/13/2015 90580 EKG Tracing & Interpretation Completed 09/05/2015 06193 EKG Tracing & Interpretation Completed 01/20/201557760 Inject/Drain Joint/Bursa Major W/O US Completed 12/17/2014 50200 EKG Tracing & Interpretation Completed 12/04/2014 93520 Holter Monitoring 24 HR New Completed 11/25/2014 34159 Cardioversion Completed 10/21/2014 00554 Plethysmography Determination Lung Volumes & Per Completed Airway Resist 10/21/2014 67802 Pulmonary Function><Bronchodil Completed 09/27/2014 15472 EKG Tracing & Interpretation Completed 09/20/2014 58262 Holter Monitoring 24 HR New Completed 09/12/2014 89136 ECHO Transthoracic, Real-Time 2D With Doppler And Completed Color Flow 03/12/201457131 Inject/Drain Joint/Bursa Major W/O US Completed 11/27/201349584 Inject/Drain Joint/Bursa Major W/O US Completed 09/17/2013 722517555 Bone Mineral Density Test Completed 03/23/2013 63163 EKG Tracing & Interpretation Completed 03/15/2013 50658 Holter Monitoring 24 HR New Completed 12/13/2012 88055 ECHO Transthoracic, Real-Time 2D With Doppler And Completed Color Flow 12/07/2012 79100 Holter Monitoring 24 HR New Completed 08/26/2011 06563034 Colonoscopy Completed 03/23/2010 85135 Rad Exam; Hip Unilat Completed 03/23/2010 44611 Rad Exam; Pelvis Completed 12/24/2009 45614 Rad Exam; Hip Unilat Completed 12/24/2009 61982 Rad Exam; Pelvis Completed 11/20/200997864 Inject/Drain Joint/Bursa Major W/O US Completed 10/03/2009 49224 Percutaneous TX Of Femoral FX Completed Encounters Type Date Location Provider Dx Diagnosis Office Visit 08/18/2018 [facility] Jeremy Hendrickson I42.9 Cardiomyopathy, 12:00p Of Ivan Valadez M.D. unspecified Z95.810 Presence of automatic (implantable) cardiac defibrillator I48.0 Paroxysmal atrial fibrillation Office Visit 08/15/2018 [facility] Carmen G47.33 Obstructive sleep 2:00p [facility] [place] apnea (adult) Ivan (pediatric) G47.50 Parasomnia, unspecified Office Visit 08/08/2018 Orthopedic Alyssa Can, M19.011 Primary 1:45p Services [facility] osteoarthritis, C.M.A. right shoulder M85.811 Oth disrd of bone density and structure, right shoulder Office Visit 08/05/2018 1:30p [facility]rna G47.9 Sleep disorder, [facility] Ronni unspecified [facility] G47.50 Parasomnia, unspecified R53.83 Other fatigue Office Visit 07/26/2018 11:20a [facility] Internal Cristycarmelita Weber, D64.9 Anemia, Medicine - Ccmob unspecified F51.8 Oth sleep disord not due to a sub or known physiol cond M54.5 Low back pain M54.2 Cervicalgia M19.011 Primary osteoarthritis, right shoulder R06.83 Snoring Office Visit 07/20/2018 10:00a [facility] Thuy Taylor, I48.0 Paroxysmal atrial Of Ivan Beavers fibrillation I42.9 Cardiomyopathy, unspecified I44.7 Left bundle-branch block, unspecified Z95.810 Presence of automatic (implantable) cardiac defibrillator Office Visit 07/18/2018 Orthopedic Alyssa Can, M19.011 Primary 2:00p Services [facility] lucero, C.M.A. right shoulder Office Visit 03/15/2018 Michael Hendrickson I48.0 Paroxysmal atrial 3:15p Cardiology Stephen Valadez M.D. fibrillation [facility] Z95.810 Presence of automatic (implantable) cardiac defibrillator I42.9 Cardiomyopathy, unspecified Office Visit 02/15/2018 1:00p [facility] Internal Owen Hendrickson Z00.01 Encounter for Audra Richmond M.D.,[facility] general adult Suite R medical exam w abnormal findings D50.8 Other iron deficiency anemias I42.8 Other cardiomyopathies M47.816 Spondylosis w/o myelopathy or radiculopathy, lumbar region M54.2 Cervicalgia H93.13 Tinnitus, bilateral Office Visit 12/21/2017 2:20p [facility] Internal Owen Richmond, M54.2 Cervicalgia Medicine - Suite R Nimesh,[facility] M79.604 Pain in right leg Z23 Encounter for immunization Office Visit 12/02/2017 Michael Hendrickson Z95.810 Presence of 11:30a Cardiology Stephen Valadez M.D. automatic [facility] (implantable) cardiac defibrillator I42.9 Cardiomyopathy, unspecified I49.3 Ventricular premature depolarization Office Visit 07/25/2017 2:00p [facility] Internal Owen Hendrickson D48.5 Neoplasm of Medicine - Suite Nimesh Richmond,FACP uncertain R behavior of skin R25.1 Tremor, unspecified R06.02 Shortness of breath Office Visit 07/21/2017 Orthopedic Alyssa Can, M19.011 Primary 1:15p Services Of MD lucero, C.M.A. right shoulder Office Visit 07/20/2017 Michael Hendrickson I42.9 Cardiomyopathy, 3:00p Cardiology Of Nimesh Valadez unspecified [facility] I48.0 Paroxysmal atrial fibrillation R00.1 Bradycardia, unspecified Office Visit 03/24/2017 8:45a Orthopedic Alyssa Can, Z96.612 Presence of left Services Of MD crenshaw C.M.A. 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 fibrillation Hospitalists I42.9 Cardiomyopathy, unspecified D64.9 Anemia, unspecified Z96.619 Presence of unspecified artificial shoulder joint Office Visit 12/23/2016 [facility] Britney I48.91 Unspecified atrial 2:20p Assocjessica M.D. fibrillation Hospitalists I42.9 Cardiomyopathy, unspecified Z96.619 Presence of unspecified artificial shoulder joint Office Visit 12/16/2016 9:40a [facility] Internal Hadley Garcia, Z01.818 Encounter for other Medicine - [employer] preprocedural Ccmob examination M19.012 Primary osteoarthritis, left shoulder I48.1 Persistent atrial fibrillation J44.1 Chronic obstructive pulmonary disease w (acute) exacerbation D50.8 Other iron deficiency anemias Office Visit 12/13/2016 1:40p [facility] Internal [place] R26.81 Unsteadiness on Audra Corona M.D. feet Suite R H81.43 Vertigo of central origin, bilateral Office Visit 12/08/2016 11:30a [place] [facility] Jeremy Hendrickson I48.1 Persistent atrial Of Ivan Valadez M.D. fibrillation I42.9 Cardiomyopathy, unspecified R94.31 Abnormal electrocardiogram [ECG] [EKG] Z01.810 Encounter for preprocedural cardiovascular examination M19.012 Primary osteoarthritis, left shoulder Office Visit 09/03/2016 10:45a [place] [facility] Jeremy Hendrickson I48.1 Persistent atrial Of Ivan Valadez M.D. fibrillation I42.9 Cardiomyopathy, unspecified R94.31 Abnormal electrocardiogram [ECG] [EKG] Office Visit 07/27/2016 1:00p [place] [facility] Jeremy Hendrickson I48.1 Persistent atrial Of Swimming [employer] Install[employer] AT [facility] Nimesh Valadez fibrillation I42.9 Cardiomyopathy, unspecified R94.31 Abnormal electrocardiogram [ECG] [EKG] Office Visit 06/18/2016 [facility] Internal Owen Hendrickson Z01.810 Encounter for 1:00p Audra Richmond M.D.,FACP preprocedural Suite R cardiovascular examination M19.012 Primary osteoarthritis, left shoulder I48.0 Paroxysmal atrial fibrillation I42.9 Cardiomyopathy, unspecified D68.9 Coagulation defect, unspecified 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 unspecified [facility] I48.1 Persistent atrial fibrillation R94.31 Abnormal electrocardiogram [ECG] [EKG] Office Visit 03/18/2016 Orthopedic Alyssa Can M19.012 Primary 1:30p Services Of osteoarthritis, left C.M.A. shoulder S46.012A Strain of musc/tend the rotator cuff of left shoulder, init Office Visit 03/09/2016 [facility] Internal Owen Hendrickson M19.012 Primary 2:00p Audra Richmond M.D.,FACP osteoarthritis, left Ccmob shoulder I48.0 Paroxysmal atrial fibrillation D64.9 Anemia, unspecified I42.9 Cardiomyopathy, unspecified Z23 Encounter for immunization Office Visit 02/24/2016 Orthopedic Alyssa Can, M19.012 Primary 2:30p Services Of osteoarthritis, left C.M.A. shoulder S46.012A Strain of musc/tend the rotator cuff of left shoulder, init Office Visit 11/18/2015 1:30p [place] [facility] Jeremy Hendrickson I48.0 Paroxysmal atrial Of [facility] AT [facility] Nimesh Valadez fibrillation R94.31 Abnormal electrocardiogram [ECG] [EKG] I42.9 Cardiomyopathy, unspecified Office Visit 09/05/2015 2:15p [place] [facility] Jeremy Hendrickson I48.0 Paroxysmal atrial Of Ivan Valadez M.D. fibrillation I42.9 Cardiomyopathy, unspecified Office Visit 09/02/2015 3:00p [facility] Chapin Hendrickson Z00.01 Encounter for Audra Richmond M.D.,[facility] abnormal findings I48.0 Paroxysmal atrial fibrillation J42 Unspecified chronic bronchitis M19.012 Primary osteoarthritis, left shoulder I71.9 Aortic aneurysm of unspecified site, without rupture H91.92 Unspecified hearing loss, left ear Office Visit 03/21/2015 1:30p [place] [facility] Jeremy Hendrickson I48.0 Paroxysmal atrial Of Ivan Valadez M.D. fibrillation I42.9 Cardiomyopathy, unspecified R94.31 Abnormal electrocardiogram [ECG] [EKG] Office Visit 03/18/2015 11:30a [facility] Internal Owen Hendrickson J44.1 Chronic Audra Richmond M.D.,[facility] obstructive [facility] (acute) exacerbation Z23 Encounter for immunization Office Visit 01/20/2015 Orthopedic Alden Novoa, M19.211 Secondary 11:45a Services Of Nimesh lucero, C.M.AChristy right shoulder Office Visit 12/17/2014 [place] Jeremy Hendrickson 427.31 Atrial Fibrillation 1:45p Cardiology Stephen Valadez M.D. Cma AT [facility] 425.4 Cardiomyopathy Other Prim Office Visit 10/28/2014 11:30a Orthopedic Alden Novoa, 726.19 Shoulder Disorders Services Of M.D. Other Spec C.M.A. Office Visit 10/25/2014 2:00p [place] [facility] Jeremy D. 427.31 Atrial Of Ivan Valadez M.D. 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 427.1 Paroxysmal Ventricular Tachycardia 715.91 Osteoarthrosis Unspec Genlzd Or Localized Shoulder 491.20 Bronchitis Obstructive Chronic W/O Acute Exacerbation V03.82 Streptococcus Pneumoniae Vaccination Spec Other Office Visit 01/15/2014 3:00p [facility] Internal Bladimir Bond, 789.69 Tenderness [facility] [employer] Abdominal Other Spec Site V04.81 Need For Prophylactic Vaccination & Inoculation/Influenza Office Visit 01/08/2014 2:15p Orthopedic Alden Novoa 715.91 Osteoarthrosis Services Of Nimesh Unspec Genlzd Or C.M.A. Localized Shoulder Office Visit 11/27/2013 1:30p Orthopedic Alden Novoa 715.91 Osteoarthrosis Services Of Nimesh Unspec Genlzd Or C.M.A. Localized Shoulder Office Visit 10/12/2013 2:20p [facility] Internal Owen Hendrickson 733.01 Osteoporosis Senile [facility] 715.91 Osteoarthrosis Unspec Genlzd Or Localized Shoulder Office Visit 09/13/2013 11:30a [place] [facility] Jeremy Hendrickson 427.1 Paroxysmal Of Ivan Valadez M.D. Ventricular Tachycardia 427.69 Premature Beats Other 425.4 Cardiomyopathy Other Prim Office Visit 09/12/2013 1:00p [facility] Internal Owen Hendrickson 425.4 Cardiomyopathy Other Medicine Justin Richmond M.D.,FACP Prim Ccmob 733.09 Osteoporosis Other 724.2 Lumbago 333.1 Tremor Essential & Other Forms 840.4 Sprains & Strains Rotator Cuff (Capsule) Office Visit 03/23/2013 2:30p [place] [facility] Jeremy Hendrickson 427.1 Paroxysmal Of Ivan AT [facility] Nimesh Valadez Ventricular Tachycardia 425.4 Cardiomyopathy Other Prim Office Visit 12/29/2012 2:30p [place] Jeremy Hendrickson 425.4 Cardiomyopathy Other Cardiology Of Nimesh Valadez Prim [facility] 427.69 Premature Beats Other Office Visit 12/01/2012 1:45p [place] Jeremy Hendrickson 425.4 Cardiomyopathy Other Cardiology Of Nimesh Valadez Prim Ivan 427.69 Premature Beats Other Office Visit 08/06/2010 [...] Pain Joint Lower Leg Office Visit 10/06/2009 [facility] Eric 427.1 Paroxysmal 4:00a jessica Dangelo M.D. Ventricular Hospitalists Tachycardia Office Visit 10/05/2009 [facility] Eric 427.1 Paroxysmal 3:30a jessica Dangelo M.D. Ventricular Hospitalists Tachycardia Office Visit 10/04/2009 [facility] Eric 427.1 Paroxysmal 3:30a jessica Dangelo M.D. Ventricular Hospitalists Tachycardia Office Visit 10/03/2009 [facility] 289.81 primary 2:45a jessica Dangelo hypercoagulable Tammy Bea[place] state 794.31 Electrocardiogram (ECG) (EKG) Abnormal Office Visit 2009 [facility] 289.81 primary 4:30a jessica Dangelo M.D. hypercoagulable Hospitalists state 794.31 Electrocardiogram (ECG) (EKG) Abnormal Plan of Treatment Future Appointment(s):11/08/2018 1:00 pm - Carmen Beach NP at [facility]10/31/2018 1:30 pm - Alyssa Can MD at [facility].10/18/2018 7:30 am - Esthela Lucero PA-C at [facility]..10/06/2018 11:30 am - Ica Pacer Schedule at [facility]10/18/2018 7:30 am - Alyssa Can MD at [facility].02/21/2019 1:30 pm - Jeremy Valadez M.D. at [facility]10/04/2018 - Carmen Beach NPG47.33 Obstructive sleep apnea (adult) ( pediatric)New Orders:Sleep[facility]Home[facility], Ordered: 10/04/18Follow up:1 monthRecommendations:We will try increasing the pressure on your machine to help with your residual sleep apnea. Aim to use the machine for your full night of sleep. If you have difficulty with your equipment, or need to replace your mask or hoses, please contact your homecare agency. If you have any further questions,please call the [facility] at [phone] If you have any sleepiness while driving you MUST avoid operating a vehicle or machinery.Z01.818 Encounter for other preprocedural examination
--- OUTSIDE RECORDS SUMMARY | 2018-10-18 05:43 | XMS REPORT | Continuity of Care Document ---
:1940 External Reference #:[id number] Author Name Rosa Isela Meraz Care Team Providers Name Role Phone Cristy Weber MD Primary Care Physician Unavailable Payers Date Identification Numbers Payment Provider Subscriber Policy Number: [id number] Medicare Chaim Pedroza Margarito YOUNG PayID: [id number] [address] [place] [address] Policy Number: [id number] [facility] Chaim Pedroza Margarito YOUNG PayID: [id number] [address] [place] [address] Expires: 2012 Policy Number: [id number] [employer] Chaim Pedroza Margarito YOUNG PayID: [id number] [address] [address] EMILY Crawford [address] Advance Directives Type Date Description Status Comment Other Directive 12/21/2017 Health Care Proxy Current and Verified Problems Active Problems Provider Date Iron deficiency anemia Owen Richmond M.D.,FACP Onset: 12/03/2015 Note: FOBT positive Biventricular automatic implantable Owen Richmond M.D.,FACP Onset: 02/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.,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 Primary [...] Marital Status Lives With 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 Cigarette Use Quit 35 Years Ago ETOH Use 01/24/2017 Denies alcohol use Tobacco Use Start: Unknown End: Patient is a former Unknown smoker Recreational Drug Use Denies Drug Use Smoking Status Reviewed: 09/28/18 Patient is a former smoker Exercise Type/Frequency [...] 30tabs Jeremy Hendrickson 11/01/2017 - Cilexetil day Brand, Nimesh 11/07/2017 16mg Tablets Tramadol HCL 1 tab by mouth 60tabs M54.16 Mary 03/16/2017 - 50mg three times a Stacy, VARITYPE OPERATOR 07/26/2018 Tablets day as needed for [...] Hendrickson 10/13/2016 - 5mg Tablets prior to [place], 01/20/2017 procedure, august MLyndon,FACP repeat x1 in 1 hour if no effect Valsartan 1/2 tab a day 45tabs Owen Hendrickson 06/18/2016 - 80mg Tablets (correction) [place], 01/24/2017 MLyndon,FACP Oxycodone-Acetaminoph 1 tabs by mouth 20tabs Alyssa Can, 03/18/2016 - en every 12 hours as MD 12/09/2016 5-325mg Tablets needed for pain Diazepam 1 tab 1 hr prior 4tabs Owen Hendrickson 03/05/2016 - 5mg Tablets to procedure, august [place], 06/18/2016 repeat X1 in 1 hr M.Emeka,FACP if no effect Tramadol HCL 1 tab twice a day 60tabs Alyssa Can, 03/03/2016 - 50mg as needed for MD 06/18/2016 Tablets pain Iferex 150 1 by mouth qod 60caps Owen Hendrickson 12/03/2015 - 150mg [place], 07/19/2017 Capsules Nimesh,FACP Naproxen 1/1-2 by mouth in 30tabs Owen Hendrickson 09/02/2015 - 500mg Tablets evening as needed Basilio, 10/18/2015 Nimesh,FACP Doxycycline Hyclate 1 tab by mouth 14tabs J44.1 Owen Hendrickson 03/18/2015 - twice a day for [place], 03/25/2015 100mg Tablets 1wks Nimesh,FACP Econazole Nitrate topical, as 30g Owen Hendrickson 11/27/2014 - 1% needed [place], 10/18/2015 Cream Nimesh,FACP Spiriva Respimat 2 puffs inhaled 12gm J44.9 Owen Hendrickson 10/29/2014 - daily ( taking 1 [place], 01/24/2017 2.5mcg/Act Aerosol puff daily ) Nimesh,FACP Xarelto 1 by mouth every 30tabs Jeremy Hendrickson 10/01/2014 - 20mg Tablets day Brand, Nimesh 01/23/2015 Spiriva Handihaler 1 inhalation po 3mon 491.20 Owen Hendrickson 03/08/2014 - qam [place], 03/08/2014 18mcg Capsules M.DChristy,FACP Ventolin HFA 2 puffs by mouth 1units 491.20 Owen Hendrickson 03/08/2014 - four times a day [place], 03/08/2014 108(90Base) mcg/Act as needed M.DChristy,FACP Aerosol Tudorza Pressair 1 puff twice a 180units 491.20 Anup Chambers, 03/08/2014 - day VARITYPE OPERATOR 10/29/2014 400mcg/Act Aerosol Proair HFA 2 puffs by mouth 1units J44.9 Owen Hendrickson 03/08/2014 - 108(90Base) every 4 hours as Basilio, 07/12/2016 mcg/Act Aerosol needed M.Emeka,FACP Triamcinolone apply twice a day 15gm 709.8 Anup Chambers, 01/15/2014 - Acetonide to affected area VARITYPE OPERATOR 03/18/2015 0.1% Cream Vitamin D3 High 1 po qd 30caps Owen Hendrickson 09/20/2013 - Potency [place], 10/18/2015 1000Unit MChristyDChristy,FACP Capsules Atenolol 1 tab by mouth 90tabs [...] Code Status Date Vaccine Reaction Lot # 99953 Given 12/21/2017 Influenza Virus Vaccine, [id number] Quadrivalent, Split, Preservative Free 29888 Given 01/24/2017 Influenza Virus Vaccine, no immediate reaction, [id number] Quadrivalent, Split, pt tolerated well Preservative Free 17865 Given 03/09/2016 Influ Virus Vaccine, no immediate reaction [id number] Quadrivalent, Split Virus, noted .. .[place] [address] Given 03/18/2015 Pneumonia Vaccine [id number] 00634 Given 02/26/2015 Influenza Virus Vaccine, [id number] Quadrivalent, Split, Preservative Free 68398 Given 03/08/2014 Pneumococcal Conjugate [id number] Vaccine 13 Valent For Intramuscular Use 37443 Given 01/15/2014 Influenza Virus Vaccine, [id number] Quadrivalent, Split, Preservative Free Vital Signs Date Vital Result Comment 09/28/2018 11:30am Height 71 inches 5'11" Weight [...] Result H/L Range Note Cath Panel 07/20/[address] [facility] Partial 38.8 seconds High 26.0-36.[address] [place] [address] PTT [phone] CBC Auto 07/20/[address] [facility] White Blood 4.6 10^3/uL N 3.5- 10.[address] [place] [address] [phone] Red Blood Count 4.05 10^6/uL Low 4.18-5.48 [...] Red Blood Cells % 0 Inr/Protime 07/20/[address] [facility] Inr 1.35 High 0.77-1.02 [address] [place] [address] [phone] Basic Metabolic 07/20/[address] [facility] Sodium 140 mmol/L N 135- 145 Panel [address] [place] [address] [phone] Potassium 4.4 mmol/L N 3.5-5.0 Chloride 108 mmol/L N 101-111 Co2 Carbon Dioxide 27 mmol/L N 22-32 Anion Gap 5 mmol/L N 2-11 Glucose 90 mg/dL N 70-100 Blood Urea Nitrogen 19 mg/dL N 6-24 Creatinine 0.90 mg/dL N 0.67-1.17 BUN/Creatinine Ratio 21.1 High 8-20 Calcium 8.9 mg/dL N 8.6-10.3 Egfr Non- 81.8 >60 Egfr 99.0 >60 1 Laboratory 07/20/[address] [facility] TSH (Thyroid Stim 2.00 N 0.34 -5.60 test finding [address] Horm) mcIU/[place] [address] [phone] Laboratory 03/21/2018 [facility] In House Occult Blood pos x3 test finding Stool Diagnostic Lipid Profile 02/16/[address] [facility] Triglycerides 48 mg/dL 2 (Trig/Chol/HDL [address] ) [place] [address] [phone] Cholesterol 184 mg/dL 3 HDL Cholesterol 70.6 mg/dL 4 LDL Cholesterol 104 mg/dL 5 Laboratory test 02/16/[address] [facility] TSH (Thyroid 1.97 mcIU/mL N 0.34-5.[address] Stim Horm) [place] [address] [phone] Basic Metabolic 02/16/[address] [facility] Sodium 140 mmol/L N 135- [address] [place] [address] [phone] Potassium 4.1 mmol/L N 3.5-5.0 Chloride 107 mmol/L N 101-111 Co2 Carbon Dioxide 27 mmol/L N 22-32 Anion Gap 6 mmol/L N 2-11 Glucose 90 mg/dL N 70-100 Blood Urea Nitrogen 18 mg/dL N 6-24 Creatinine 0.89 mg/dL N 0.67-1.17 BUN/Creatinine Ratio 20.2 High 8-20 Calcium 8.9 mg/dL N 8.6-10.3 Egfr Non- 82.9 >60 Egfr 100.3 >60 6 CBC Auto Diff 02/16/[address] [facility] White Blood 4.5 10^3/uL N 3.5-10.[address] [place] [address] [phone] Red Blood Count 3.90 10^6/uL Low 4.00-5.40 [...] % 0.1 Iron & Iron Binding 02/16/[address] [facility] Iron 96 g/dL N 50- 212 Capacity [facility] [place] [address] [phone] Unsaturated Iron Binding < 363 g/dL Total Iron Binding Capacity 378 g/dL N 250-450 Transferrin 270 mg/dL N 203-362 % Iron Saturation 25 % N 15-55 Laboratory 09/06/[address] [facility] TSH (Thyroid Stim 1.46 N 0.34 -5.60 test finding [facility] Horm) mcIU/[place] [address] [phone] Lipid Profile 09/06/[address] [facility] Triglycerides 44 mg/dL 7 (Trig/Chol/HDL [facility] ) [place] [address] [phone] Cholesterol 172 mg/dL 8 HDL Cholesterol 57.0 mg/dL 9 LDL Cholesterol 106 mg/dL 10 Basic Metabolic Panel 09/06/[address] [facility] Sodium 139 mmol/L N 139-[address] [place] [address] [phone] Potassium 4.1 mmol/L N 3.5-5.0 Chloride 106 mmol/L N 101-111 Co2 Carbon Dioxide 27 mmol/L N 22-32 Anion Gap 6 mmol/L N 2-11 Glucose 88 mg/dL N 70-100 Blood Urea Nitrogen 22 mg/dL N 6-24 Creatinine 0.83 mg/dL N 0.67-1.17 BUN/Creatinine Ratio 26.5 High 8-20 Calcium 8.5 mg/dL Low 8.6-10.3 Egfr Non- 90.1 >60 Egfr 115.8 >60 11 Inr/Protime 09/06/[address] [facility] Inr 1.18 High 0.77-1.[address] [place] [address] [phone] CBC No Diff 09/06/[address] [facility] White Blood 4.1 10^3/uL N 3.5-10.[address] [place] [address] [phone] Red Blood Count 3.85 10^6/uL Low 4.0-5.4 [...] um3 N 7.4-10.4 Urine Culture And 12/09/[address] [facility] Urine SEE RESULT 12 , [address] [address] [phone] Type & Screen 12/09/[address] [facility] Patient O Positive N [address] [place] [address] [phone] Antibody Screen NEGATIVE N Laboratory test 12/09/[address] [facility] Partial 36.6 High 26.0- 36.[address] [address] Time PTT [phone] Urinalysis 12/09/[address] [facility] Urine Color Yellow N Profile [address] [place] [address] [phone] Urine Appearance Clear N Urine Specific [place] 1.018 N 1.010-1.030 Urine pH 6.0 N 5-9 Urine Urobilinogen Negative N Negative Urine Ketones Negative N Negative Urine Protein Negative N Negative Urine Leukocytes Negative N Negative Urine Blood Negative N Negative Urine Nitrite Negative N Negative Urine Bilirubin Negative N Negative Urine Glucose Negative N Negative Inr/Protime 12/09/[address] [facility] Inr 1.21 High 0.89-1.[address] [place] [address] [phone] Laboratory test 12/09/[address] [facility] TSH 1.57 N 0.34-5.60 15 finding 101 (Thyroid mcIU/[place] [address] Stim Horm) [phone] Free T4 (Free Thyroxine) 1.40 ng/dL High 0.61-1.12 16 Basic Metabolic Panel 12/09/[address] [facility] Sodium 138 mmol/L N 133-[address] [place] [address] [phone] Potassium 4.1 mmol/L N 3.5-5.0 Chloride 104 [...] N >60 17 CBC No Diff 12/09/[address] [facility] White Blood 4.2 10^3/uL N 3.5-10.8 [address] [place] [address] [phone] Red Blood Count 3.78 10^6/uL Low 4.0-5.4 Hemoglobin 12.5 g/dL Low 14.0-18.0 Hematocrit 37 % Low 42-52 Mean Corpuscular Volume 97 fL High 80-94 Mean Corpuscular Hemoglobin 33 pg High 27-31 Mean Corpuscular HGB Conc 34 g/dL N 31-36 Red Cell Distribution Width 13 % N 10.5-15 Platelet Count 169 10^3/uL N 150-450 Mean Platelet Volume 9 um3 N 7.4-10.4 Lipid Profile 08/02/[address] [facility] Triglycerides 44 mg/dL N 18 (Trig/Chol/HDL) [address] [place] [address] [phone] Cholesterol 176 mg/dL N 19 HDL Cholesterol 61.5 mg/dL N 20 LDL Cholesterol 106 mg/dL N 21 Laboratory test 08/02/[address] [facility] Ferritin 40.7 ng/mL N 24 -[address] [place] [address] [phone] Basic Metabolic 08/02/[address] [facility] Sodium 138 mmol/L N 133- [address] [place] [address] [phone] Potassium 4.1 mmol/L N 3.5-5.0 Chloride 105 [...] N >60 23 CBC Auto Diff 08/02/[address] [facility] White Blood 3.9 10^3/uL N 3.5-10.[address] [place] [address] [phone] Red Blood Count 4.08 10^6/uL N 4.0-5.4 [...] Blood Cells % 0.1 N Xray 03/08/[address] [facility] MRI Shoulder <pending> [address] [place] [address] [phone] Laboratory test 11/28/[address] [facility] Ferritin 10.9 ng/mL Low 24-[address] [place] [address] [phone] CBC Auto Diff 11/24/[address] [facility] White Blood 5.0 10^3/uL N 3.5-[address] Count .8 [place] [address] [phone] Red Blood Count 3.87 10^6/uL Low 4.0-5.4 [...] % 0.1 N Stool For Blood 09/29/2015 [facility] House Miscellaneous Lab negative X 3 Basic Metabolic 09/02/[address] [facility] Sodium 138 mmol/L N 133- [address] [place] [address] [phone] Potassium 4.2 mmol/L N 3.5-5.0 Chloride 106 [...] >60 24 Iron & Iron Binding 09/02/[address] [facility] Iron 74 g/dL N 50- 212 Capacity [address] [place] [address] [phone] Unsaturated Iron Binding 286 g/dL N Total Iron Binding Capacity 360 g/dL N 250-450 % Iron Saturation 21 % N 15-55 Laboratory test 09/02/[address] [facility] Ferritin 10.5 ng/mL Low 24-[address] [place] [address] [phone] Lipid Profile 09/02/[address] [facility] Triglycerides 47 mg/dL N 25 (Trig/Chol/HDL) [address] [place] [address] [phone] Cholesterol 167 mg/dL N 26 HDL Cholesterol 62.9 mg/dL N 27 LDL Cholesterol 95 mg/dL N 28 Basic Metabolic Panel 09/27/[address] [facility] Sodium 137 mmol/L N 133-145 29 [address] [place] [address] [phone] Potassium 4.6 mmol/L N 3.5-5.0 Chloride 106 [...] N >60 30 CBC Auto Diff 09/27/[address] [facility] White Blood 5.2 10^3/uL N 4.8-10.8 101 [facility] [place] [address] [phone] Red Blood Count 4.02 10^6/uL N 4.0-5.4 [...] Blood Cells % 0 N Pthi 09/12/[address] [facility] PTH Intact 3.9 pmol/L N 1.3-9.[address] [place] [address] [phone] Calcium (PTH Intact) 9.0 mg/dL N 8.6-10.3 Laboratory test 09/12/[address] [facility] Testosterone 410.78 N 240-[address] ng/[place] [address] [phone] Vitamin D, 25 09/12/[address] [facility] 25-Hydroxy <4.0 ng/mL N Hydroxy [address] Vitamin D2 [place] [address] [phone] 25-Hydroxy Vitamin D3 32 ng/mL N 25-Hydroxy Vitamin D Total 32 ng/mL N 31 Basic Metabolic Panel 07/06/[address] [facility] Sodium 136 mmol/L N 133-[address] [place] [address] [phone] Potassium 4.1 mmol/L N 3.7-5.6 Chloride 102 [...] [address]: Alyssa Can MD Acct: [id number] Unit: [id number] AGE: 76 Location[facility] Re12/09/16 SEX: M Status: REG REF SPEC: [id number] AZUL: 12/09/16-[address] [facility] [address]: Alyssa Can MD REQ: [id number] RECD: 12/09/16 STATUS: COMP _ SOURCE: URINE SPDESC: ORDERED: Urine Culture QUERIES: Urine Source: Clean Catch Procedure Result Reported Site Urine Culture Final 12/10/16- 1316 ML No Growth (<1,000 CFU/mL) * ML - MAIN LAB ([facility]) . END OF REPORT * ML=Testing performed at Main Lab DEPARTMENT OF PATHOLOGY, [address] [place] [address] Omid Martinez M.D. Director [facility] # [id number] 12/22 15 AA 12/22 16 12/22 17 Because ethnic data [...] levels within this range. Test Performed by: [facility] - [address] [address] Skein Mercerizing Machine Operator: Jeff Lopez III, M.D. 32 Because ethnic [...] dialysis) Procedures Date Code Description Status 09/12/2018 58446 Cardioversion Completed 08/30/2018 48477 Interrogation Device Eval Remote Up To 30 Days Completed Analysis,Rev,RP 08/30/2018 29344 Interrogation Device Eval Remote Up To 30 Days Completed Analysis,Rev,RP 08/30/2018 63314 Icd Eval Sing,Dual,Multi Lead Remote Recpt Transm Tech Completed Rev Tech S 08/30/2018 05728 Icd Eval Sing,Dual,Multi Lead Remote Recpt Transm Tech Completed Rev Tech S 08/30/2018 87959 Icd Check Remote Up To 90 Days Single,Dual,Multiple Completed Lead 08/30/2018 36007 Icd Check Remote Up To 90 Days Single,Dual,Multiple Completed Lead 08/18/2018 45248 EKG Tracing & Interpretation Completed 08/09/2018 08042 Sleep Study Unattended,HRT Rate,Oxygen Sat,Resp Completed Effort/Airflow 07/20/2018 40948 Cardioversion Completed 07/20/2018 35142 EKG Tracing & Interpretation Completed 07/20/2018 47738 EKG, Interpretation Only Completed 07/20/2018 14632 Icd Eval With Iterative Adjustmt Multiple Lead System Completed 07/20/2018 65321 Icd Eval With Iterative Adjustmt Multiple Lead System Completed 07/20/2018 01410 Interrogation Implant Cardiovasc Monitor System Incl Completed Analysis Int 07/20/2018 00028 Interrogation Implant Cardiovasc Monitor System Incl Completed Analysis Int 05/29/2018 98266 Interrogation Device Eval Remote Up To [address] Completed Analysis,Rev,RP 05/29/2018 64587 Interrogation Device Eval Remote Up To [address] Completed Analysis,Rev,RP 05/29/2018 33546 Icd Eval Sing,Dual,Multi Lead Remote Recpt Transm Tech Completed Rev Tech S 05/29/2018 12272 Icd Eval Sing,Dual,Multi Lead Remote Recpt Transm Tech Completed Rev Tech S 05/29/2018 70089 Icd Check Remote Up To 90 Days Single,Dual,Multiple Completed Lead 05/29/2018 62112 Icd Check Remote Up To 90 Days Single,Dual,Multiple Completed Lead 05/16/2018 16329990 Colonoscopy Completed 04/28/2018 07422 Implantable Cardio System Loop Recorder Sys Remota Completed Data Acquistio 04/28/2018 10042 Interrogation Device Eval Remote Up To [address] Completed Analysis,Rev,RP 04/28/2018 82375 Implantable Cardio System Loop Recorder Sys Remota Completed Data Acquistio 04/28/2018 99921 Interrogation Device Eval Remote Up To [address] Completed Analysis,Rev,RP 03/30/2018 65525 Implantable Cardio System Loop Recorder Sys Remota Completed Data Acquistio 03/30/2018 97589 Interrogation Device Eval Remote Up To [address] Completed Analysis,Rev,RP 03/28/2018 18574 Implantable Cardio System Loop Recorder Sys Remota Completed Data Acquistio 03/28/2018 94539 Interrogation Device Eval Remote Up To [address] Completed Analysis,Rev,RP 03/07/2018 65608 Pulmonary Function><Bronchodil Completed 03/07/2018 41310 Diffusing Capacity Completed 03/07/2018 91661 Plethysmography Determination Lung Volumes & Per Completed Airway Resist 02/25/2018 22480 Icd Check Remote Up To 90 Days Single,Dual,Multiple Completed Lead 02/25/2018 99410 Interrogation Device Eval Remote Up To [address] Completed Analysis,Rev,RP 02/25/2018 63771 Icd Eval Sing,Dual,Multi Lead Remote Recpt Transm Tech Completed Rev Tech S 12/26/2017 29184 Interrogation Device Eval Remote Up To [address] Completed Analysis,Rev,RP 12/26/2017 24698 Interrogation Device Eval Remote Up To 30 Days Completed Analysis,Rev,RP 12/14/2017 98428 ECHO Transthoracic, Real-Time 2D With Doppler And Completed Color Flow 12/14/2017 19938 ECHO Transthoracic, Real-Time 2D With Doppler And Completed Color Flow 11/23/2017 27742 Interrogation Implant Cardiovasc Monitor System Incl Completed Analysis Int 11/23/2017 54565 Interrogation Implant Cardiovasc Monitor System Incl Completed Analysis Int 11/23/2017 02366 Icd Eval With Iterative Adjustmt Multiple Lead System Completed 11/23/2017 23696 Icd Eval With Iterative Adjustmt Multiple Lead System Completed 07/20/2017 92909 EKG Tracing & Interpretation Completed 02/01/2017 46815 Diffusing Capacity Completed 02/01/2017 70906 Plethysmography Determination Lung Volumes & Per Completed Airway Resist 02/01/2017 24433 Pulmonary Function><Bronchodil Completed 12/22/2016 53411 Arthroplasty,Total Shoulder Replacement (TSR) Completed 12/22/2016 78082 Arthroplasty,Total Shoulder Replacement (TSR) Completed 12/08/2016 93885 EKG Tracing & Interpretation Completed 08/24/2016 03530 ECHO Transthoracic, Real-Time 2D With Doppler And Completed Color Flow 07/27/2016 68665 EKG Tracing & Interpretation Completed 07/05/2016 17355 EKG, Interpretation Only Completed 07/05/2016 22803 Cardioversion Completed 06/18/2016 11016 EKG Tracing & Interpretation Completed 02/24/2016 68184 Inject/Drain Joint/Bursa Major W/O US Completed 11/18/2015 92969 EKG Tracing & Interpretation Completed 11/14/2015 55531 EKG, Interpretation Only Completed 11/14/2015 10180 Cardioversion Completed 11/13/2015 27039 EKG Tracing & Interpretation Completed 09/05/2015 55888 EKG Tracing & Interpretation Completed 01/20/2015 45205 Inject/Drain Joint/Bursa Major W/O US Completed 12/17/2014 47230 EKG Tracing & Interpretation Completed 12/04/2014 20771 Holter Monitoring 24 HR New Completed 11/25/2014 37995 Cardioversion Completed 10/21/2014 02820 Plethysmography Determination Lung Volumes & Per Completed Airway Resist 10/21/2014 40720 Pulmonary Function><Bronchodil Completed 09/27/2014 30206 EKG Tracing & Interpretation Completed 09/20/2014 50523 Holter Monitoring 24 HR New Completed 09/12/2014 33834 ECHO Transthoracic, Real-Time 2D With Doppler And Completed Color Flow 03/12/201458844 Inject/Drain Joint/Bursa Major W/O US Completed 11/27/2013 Inject/Drain Joint/Bursa Major W/O US Completed 09/17/2013 934371013 Bone Mineral Density Test Completed 03/23/2013 59650 EKG Tracing & Interpretation Completed 03/15/2013 10896 Holter Monitoring 24 HR New Completed 12/13/2012 38429 ECHO Transthoracic, Real-Time 2D With Doppler And Completed Color Flow 12/07/2012 34692 Holter Monitoring 24 HR New Completed 08/26/2011 37820110 Colonoscopy Completed 03/23/2010 25857 Rad Exam; Hip Unilat Completed 03/23/2010 58591 Rad Exam; Pelvis Completed 12/24/2009 88712 Rad Exam; Hip Unilat Completed 12/24/2009 13863 Rad Exam; Pelvis Completed 11/20/2009 Inject/Drain Joint/Bursa Major W/O US Completed 10/03/2009 12741 Percutaneous TX Of Femoral FX Completed Encounters Type Date Location Provider Dx Diagnosis Office Visit 08/18/2018 [facility] Jeremy Hendrickson I42.9 Cardiomyopathy, 12:00p Of Ivan Valadez M.D. unspecified Z95.810 Presence of automatic (implantable) cardiac defibrillator I48.0 Paroxysmal atrial fibrillation Office Visit 08/15/2018 [facility] And Carmen G47.33 Obstructive sleep 2:00p [facility] [place] apnea (adult) Home Improvement Advisor (pediatric) G47.50 Parasomnia, unspecified Office Visit 08/08/2018 Orthopedic Alyssa Can, M19.011 Primary 1:45p Services Of osteoarthritis, C.M.A. right shoulder M85.811 Oth disrd of bone density and structure, right shoulder Office Visit 08/05/2018 1:30p [facility] And Myrna G47.9 Sleep disorder, [facility] MD Ronni unspecified Home Improvement Advisor G47.50 Parasomnia, unspecified R53.83 Other fatigue Office Visit 07/26/2018 11:20a [facility] Internal Cristy Gus, D64.9 Anemia, Medicine - Ccmob unspecified F51.8 Oth sleep disord not due to a sub or known physiol cond M54.5 Low back pain M54.2 Cervicalgia M19.011 Primary osteoarthritis, right shoulder R06.83 Snoring Office Visit 07/20/2018 10:00a [facility] Thuy Taylor, I48.0 Paroxysmal atrial Of Ivan Beavers fibrillation I42.9 Cardiomyopathy, unspecified I44.7 Left bundle-branch block, unspecified Z95.810 Presence of automatic (implantable) cardiac defibrillator Office Visit 07/18/2018 Orthopedic Alyssa Can, M19.011 Primary 2:00p Services Of MD lucero C.M.AChristy right shoulder Office Visit 03/15/2018 [place] I48.0 Paroxysmal atrial 3:15p Cardiology Stephen Valadez M.D. fibrillation [facility] Z95.810 Presence of automatic (implantable) cardiac defibrillator I42.9 Cardiomyopathy, unspecified Office Visit 02/15/2018 1:00p [facility] Chapin Hendrickson Z00.01 Encounter for Medicine - Nimesh Richmond,FACP general adult Suite [address] medical exam w abnormal findings D50.8 Other iron deficiency anemias I42.8 Other cardiomyopathies M47.816 Spondylosis w/o myelopathy or radiculopathy, lumbar region M54.2 Cervicalgia H93.13 Tinnitus, bilateral Office Visit 12/21/2017 2:20p [facility] Internal Owen Richmond, M54.2 Cervicalgia Medicine - [address] Nimesh,FACP M79.604 Pain in right leg Z23 Encounter for immunization Office Visit 12/02/2017 Michael Hendrickson Z95.810 Presence of 11:30a Cardiology Of Nimesh Valadez automatic [facility] (implantable) cardiac defibrillator I42.9 Cardiomyopathy, unspecified I49.3 Ventricular premature depolarization Office Visit 07/25/2017 2:00p [facility] Internal Owen Hendrickson D48.5 Neoplasm of Medicine - Tiny Richmond M.D.,FAC uncertain R behavior of skin R25.1 Tremor, unspecified R06.02 Shortness of breath Office Visit 07/21/2017 Orthopedic Alyssa Can, M19.011 Primary 1:15p Services Of MD lucero C.MChristyAChristy right shoulder Office Visit 07/20/2017 Michael Hendrickson I42.9 Cardiomyopathy, 3:00p Cardiology Of Nimesh Valadez unspecified [facility] I48.0 Paroxysmal atrial fibrillation R00.1 Bradycardia, unspecified Office Visit 03/24/2017 8:45a Orthopedic Alyssa Can, Z96.612 Presence of left Services Of MD crenshaw C.M.A. 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 fibrillation Hospitalists I42.9 Cardiomyopathy, unspecified D64.9 Anemia, unspecified Z96.619 Presence of unspecified artificial shoulder joint Office Visit 12/23/2016 [facility] Britney I48.91 Unspecified atrial 2:20p Assoc,jessica Orr M.D. fibrillation Hospitalists I42.9 Cardiomyopathy, unspecified Z96.619 Presence of unspecified artificial shoulder joint Office Visit 12/16/2016 9:40a [facility] Internal Hadley Garcia, Z01.818 Encounter for other Medicine - VARITYPE OPERATOR preprocedural Ccmob examination M19.012 Primary osteoarthritis, left shoulder I48.1 Persistent atrial fibrillation J44.1 Chronic obstructive pulmonary disease w (acute) exacerbation D50.8 Other iron deficiency anemias Office Visit 12/13/2016 1:40p [facility] Internal Ritesh R26.81 Unsteadiness on Medicine - Nimesh Corona feet Suite R H81.43 Vertigo of central origin, bilateral Office Visit 12/08/2016 11:30a [place] [facility] Jeremy Hendrickson I48.1 Persistent atrial Of Ivan Valadez M.D. fibrillation I42.9 Cardiomyopathy, unspecified R94.31 Abnormal electrocardiogram [ECG] [EKG] Z01.810 Encounter for preprocedural cardiovascular examination M19.012 Primary osteoarthritis, left shoulder Office Visit 09/03/2016 10:45a [place] [facility] Jeremy Hendrickson I48.1 Persistent atrial Of Home Improvement Advisor Nimesh Valadez fibrillation I42.9 Cardiomyopathy, unspecified R94.31 Abnormal electrocardiogram [ECG] [EKG] Office Visit 07/27/2016 1:00p [place] [facility] Jeremy Hendrickson I48.1 Persistent atrial Of Home Improvement Advisor AT [facility] Nimesh Valadez fibrillation I42.9 Cardiomyopathy, unspecified R94.31 Abnormal electrocardiogram [ECG] [EKG] Office Visit 06/18/2016 [facility] Internal Owen Hendrickson Z01.810 Encounter for 1:00p Audra Richmond M.D., FACP preprocedural Suite R cardiovascular examination M19.012 Primary osteoarthritis, left shoulder I48.0 Paroxysmal atrial fibrillation I42.9 Cardiomyopathy, unspecified D68.9 Coagulation defect, unspecified 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 shoulder S46.012A Strain of musc/tend the rotator cuff of left shoulder, init Office Visit 03/09/2016 [facility] Internal Owen Hendrickson M19.012 Primary 2:00p Audra Richmond M.D.,BENEDICTO osteoarthritis, left Ccmob shoulder I48.0 Paroxysmal atrial fibrillation D64.9 Anemia, unspecified I42.9 Cardiomyopathy, unspecified Z23 Encounter for immunization Office Visit 02/24/2016 Orthopedic Cristobal Arvizu9.012 Primary 2:30p Services Of osteoarthritis, left C.M.A. shoulder S46.012A Strain of musc/tend the rotator cuff of left shoulder, init Office Visit 11/18/2015 1:30p [place] [facility] Jeremy Hendrickson I48.0 Paroxysmal atrial Of Home Improvement Advisor AT [facility] Nimesh Valadez fibrillation R94.31 Abnormal electrocardiogram [ECG] [EKG] I42.9 Cardiomyopathy, unspecified Office Visit 09/05/2015 2:15p [place] Zahra Hendrickson I48.0 Paroxysmal atrial Of Ivan Valadez M.D. fibrillation I42.9 Cardiomyopathy, unspecified Office Visit 09/02/2015 3:00p [facility] Chapin Hendrickson Z00.01 Encounter for Audra Richmond M.D.,[facility] general adult Ccmob medical exam w abnormal findings I48.0 Paroxysmal atrial fibrillation J42 Unspecified chronic bronchitis M19.012 Primary osteoarthritis, left shoulder I71.9 Aortic aneurysm of unspecified site, without rupture H91.92 Unspecified hearing loss, left ear Office Visit 03/21/2015 1:30p [place] Zahra Hendrickson I48.0 Paroxysmal atrial Of Ivan Valadez M.D. fibrillation I42.9 Cardiomyopathy, unspecified R94.31 Abnormal electrocardiogram [ECG] [EKG] Office Visit 03/18/2015 11:30a [facility] Chapin Hendrickson J44.1 Chronic Audra Richmond M.D.,[facility] obstructive Ccmob pulmonary disease w (acute) exacerbation Z23 Encounter for immunization Office Visit 01/20/2015 Orthopedic Alden Novoa, M19.211 Secondary 11:45a Services Of Nimesh osteoarthritis, C.M.A. right shoulder Office Visit 12/17/2014 Michael Hendrickson 427.31 Atrial Fibrillation 1:45p Cardiology Stephen Valadez M.D. [facility] AT [facility] 425.4 Cardiomyopathy Other Prim Office Visit 10/28/2014 11:30a Orthopedic Alden Novoa, 726.19 Shoulder Disorders Services Of Nimesh Other Spec C.M.A. Office Visit 10/25/2014 2:00p [place] Zahra Hendrickson 427.31 Atrial Of Ivan Valadez M.D. Fibrillation 425.4 Cardiomyopathy Other Prim Office Visit 10/14/2014 1:40p [facility] Chapin Hendrickson 286.3 Coagulation Other Audra Richmond M.D.,[facility] Clotting Factors Suite R Congenital Deficiency 427.31 Atrial Fibrillation 491.20 Bronchitis Obstructive Chronic W/O Acute Exacerbation 726.19 Shoulder Disorders Other Spec 238.2 Neoplasm Uncertain Skin Office Visit 09/27/2014 3:15p Michael Hendrickson 425.4 Cardiomyopathy Other Cardiology Of Nimesh Valadze Prim [facility] 427.31 Atrial Fibrillation Office Visit 03/08/2014 11:00a [facility] Internal Owen Hendrickson V70.0 Examination Medicine - Nimesh Richmond,[facility] 427.1 Paroxysmal Ventricular Tachycardia 715.91 Osteoarthrosis Unspec Genlzd Or Localized Shoulder 491.20 Bronchitis Obstructive Chronic W/O Acute Exacerbation V03.82 Streptococcus Pneumoniae Vaccination Spec Other Office Visit 01/15/2014 3:00p [facility] Internal Bladimir Bond, 789.69 Tenderness Medicine - [facility] VARITYPE OPERATOR Abdominal Other Spec Site V04.81 Need For Prophylactic Vaccination & Inoculation/Influenza Office Visit 01/08/2014 2:15p Orthopedic Alden Novoa 715.91 Osteoarthrosis Services Of Nimesh Unspec Genlzd Or C.M.A. Localized Shoulder Office Visit 11/27/2013 1:30p Orthopedic Alden Novoa 715.91 Osteoarthrosis Services Of Nimesh Unspec Genlzd Or C.M.A. Localized Shoulder Office Visit 10/12/2013 2:20p [facility] Internal Owen Hendrickson 733.01 Osteoporosis Senile Medicine - [facility] M[facility].,[facility] 715.91 Osteoarthrosis Unspec Genlzd Or Localized Shoulder Office Visit 09/13/2013 11:30a [place] Zahra Hendrickson 427.1 Paroxysmal Of Ivan Valadez M.D. Ventricular Tachycardia 427.69 Premature Beats Other 425.4 Cardiomyopathy Other Prim Office Visit 09/12/2013 1:00p [facility] Internal Owen Hendrickson 425.4 Cardiomyopathy Other Medicine Justin Richmond M.D.,[facility] Prim [facility] 733.09 Osteoporosis Other 724.2 Lumbago 333.1 Tremor Essential & Other Forms 840.4 Sprains & Strains Rotator Cuff (Capsule) Office Visit 03/23/2013 2:30p [place] [facility] Jeremy Hendrickson 427.1 Paroxysmal Of [facility] AT [facility] Nimesh Valadez Ventricular Tachycardia 425.4 Cardiomyopathy Other Prim Office Visit 12/29/2012 2:30p [place] Jeremy Hendrickson 425.4 Cardiomyopathy Other Cardiology Of Nimesh Valadez Prim [facility] 427.69 Premature Beats Other Office Visit 12/01/2012 1:45p Michael Hendrickson 425.4 Cardiomyopathy Other Cardiology Of Nimesh Valadez Prim [facility] 427.69 Premature Beats Other Office Visit [...] Pain Joint Lower Leg Office Visit 10/06/2009 [facility] 427.1 Paroxysmal 4:00a jessica Dangelo M.D. Ventricular Hospitalists Tachycardia Office Visit 10/05/2009 [facility] 427.1 Paroxysmal 3:30a jessica Dangelo M.D. Ventricular Hospitalists Tachycardia Office Visit 10/04/2009 [facility] 427.1 Paroxysmal 3:30a jessica Dangelo M.D. Ventricular Hospitalists Tachycardia Office Visit 10/03/2009 [facility] 289.81 primary 2:45a jessica Dangelo hypercoagujunior Munoz M.D. state 794.31 Electrocardiogram (ECG) (EKG) Abnormal Office Visit 2009 [facility] 289.81 primary 4:30a jessica Dangelo M.D. hypercoagulable Hospitalists state 794.31 Electrocardiogram (ECG) (EKG) Abnormal Plan of Treatment Future Appointment(s):10/18/2018 7:30 am - Esthela Lucero PA-C at [facility]10/06/2018 11:30 am - Ica Pacer Schedule at [facility]10/06/2018 12:15 pm - Jeremy Valadez M.D. at [facility]10/03/2018 9:30 am - Alyssa Can MD at [facility]10/18/2018 7:30 am - Alyssa Can MD at [facility]02/21/2019 1:30 pm - Jeremy Valadez M.D. at [facility] 2:00 pm - Carmen Beach NP at [facility]09/28/2018 - Hadley Garcia, NPZ01.818 Encounter for other preprocedural examinationNew Labs:Basic Metabolic Panel, Ordered: 09/28/18CBC Auto Diff, Ordered: 09/28/18Urine Culture And Sensitivities, Ordered: 09/28/18Inr/Protime, Ordered: 09/28/18Comments:As long as your labs are normal I do not see any contraindications to your surgery.You should avoid supplements 7 days prior to the procedure. You have an appointment scheduled with the sleep clinic on 10/04 at 2:00pm.M19.011 Primary osteoarthritis, right eaubqpvaD46.0 Paroxysmal atrial mrvddugipqwwU91.9 Cardiomyopathy, xhdkzgqhlsrQ53.810 Presence of automatic ( implantable) cardiac koffufafndgdfD64.33 Obstructive sleep apnea (adult) ( pediatric)D64.9 Anemia, unspecified
[2018-10-18] MEDS ORDERED: Lactated Ringers 1000 ML Bag* 1,000 ML IV SCH ×2 (06:00→11:00)
[2018-10-18] MEDS ORDERED: celeCOXIB CAP* 200 MG PO ONE (06:00)
[2018-10-18] MEDS ORDERED: Acetaminophen TAB* 325 MG PO ONE (06:00)
[2018-10-18] MEDS ORDERED: Gabapentin CAP(*) 300 MG PO ONE (06:00)
[2018-10-18] MEDS ORDERED: Famotidine TAB* 20 MG PO ONE (06:00)
[2018-10-18] MEDS ORDERED: Dexamethasone IV* 4 MG/ML 1 ML (4 MG) IV SLOW PU ONE (06:00)
[2018-10-18] MEDS ORDERED: Gabapentin CAP(*) 300 MG ONE (06:06)
[2018-10-18] MEDS ORDERED: Dexamethasone IV* 4 MG/ML 1 ML (4 MG) ONE (06:06)
[2018-10-18] MEDS ORDERED: Buffered Lidocaine 1% SYRIN* 1 ML/SYRINGE INTRADERM ONE (06:07)
[2018-10-18] MEDS ORDERED: celeCOXIB CAP* 200 MG ONE (06:07)
[2018-10-18] MEDS ORDERED: Famotidine TAB* 20 MG ONE (06:07)
[2018-10-18] MEDS ORDERED: Acetaminophen TAB* 325 MG ONE (06:07)
[2018-10-18] MEDS ORDERED: ceFAZolin 2 GM in NS PREMIX(*) 2 GM/100 ML BAG IVPB ONE (06:07)
[2018-10-18] MEDS ORDERED: Lidocaine 1% MPF ** 5 ML VIAL ONE (07:08)
[2018-10-18] MEDS ORDERED: ROPIVACAINE 5 MG/ML 30 ML BTL (0.5%) ONE (07:08)
[2018-10-18] MEDS ORDERED: Midazolam* 1 MG/ML 2 ML VIAL (2 MG) ONE (07:28)
[2018-10-18] MEDS ORDERED: fentaNYL* 50 MCG/ML 5 ML VIAL (250 MCG VIAL) ONE (07:28)
[2018-10-18] MEDS ORDERED: Propofol* 10 MG/ML 20 ML BTL ONE (07:29)
[2018-10-18] MEDS ORDERED: Etomidate* 2 MG/ML 10 ML VIAL ONE (07:29)
[2018-10-18] MEDS ORDERED: Rocuronium* 10 MG/ML VIAL ONE ×2 (07:29→09:03)
[2018-10-18] MEDS ORDERED: DiMENhydriNATE IV* 50 MG/ML VIAL IV PUSH PRN (08:32)
[2018-10-18] MEDS ORDERED: fentaNYL* 50 MCG/ML 2 ML VIAL (100 MCG VIAL) IV PRN (08:32)
[2018-10-18] MEDS ORDERED: Naloxone* 0.4 MG/ML 1 ML VIAL IV PRN (08:32)
[2018-10-18] MEDS ORDERED: oxyCODONE/Acetamin 5/325 MG* TAB PO PRN ×3 (08:32→10:34)
[2018-10-18] MEDS ORDERED: HYDROmorphone INJ1* 1 MG/ML SYRINGE IV PRN (08:32)
[2018-10-18] MEDS ORDERED: Phenylephrine 40 MCG/ML SYRINGE ONE (08:59)
[2018-10-18] MEDS ORDERED: Phenylephrine 10 MG/ML VIAL* 1 ML VIAL ONE (08:59)
[2018-10-18] MEDS ORDERED: Neostigmine Methylsulfate* 3 MG/3 ML SYRINGE ONE (09:49)
[2018-10-18] MEDS ORDERED: Glycopyrrolate IV* 0.2 MG/ML 1 ML VIAL ONE (09:49)
[2018-10-18] MEDS ORDERED: Ondansetron INJ* 2 MG/ML VIAL ONE (09:50)
[2018-10-18] MEDS ORDERED: Bisacodyl SUPP* 10 MG SUPP PR PRN (10:34)
[2018-10-18] MEDS ORDERED: diPHENhydraMINE IV* 50 MG/ML 1 ml VIAL (BENADRYL) IV PRN (10:34)
[2018-10-18] MEDS ORDERED: Ondansetron INJ* 2 MG/ML VIAL IV PRN (10:34)
[2018-10-18] MEDS ORDERED: Morphine INJ* 2 MG/ML 1 ML SYRINGE (TWO MG - NEW SYRINGE VERSION) IV PRN (10:34)
[2018-10-18] MEDS ORDERED: Ondansetron ODT TAB* 4 MG PO PRN (10:34)
[2018-10-18] MEDS ORDERED: Magnesium Hydroxide LIQ* 30 ML UDC PO PRN (10:34)
[2018-10-18] MEDS ORDERED: diPHENhydraMINE PO* 25 MG PO PRN (10:34)
[2018-10-18] MEDS ORDERED: oxyCODONE TAB* 5 MG TAB PO PRN (10:34)
[2018-10-18] MEDS ORDERED: Polyethylene Glycol 3350* 17 GM PACKET PO PRN (10:34)
[2018-10-18] MEDS ORDERED: Cyclobenzaprine TAB* 10 MG PO PRN (10:34)
[2018-10-18] MEDS ORDERED: Albuterol HFA INHALER* 8 gm MDI INH PRN (10:39)
[2018-10-18] MEDS ORDERED: oxyCODONE/Acetamin 5/325 MG* TAB ONE (11:14)
[2018-10-18] MEDS: Acetaminophen TAB* 325 MG PO SCH ×2 (14:44→22:06)
--- NOTE | 2018-10-18 15:33 | OP ---
CC: PCP; [employer] Service Technician * DATE OF OPERATION: 10/18/18 - ROOM #336 DATE OF : 40 SURGEON: Alyssa Can MD. ASSISTANTS: 1. PRASANNA Mcdaniel. 2. Kyara Baker. Assistants were needed for the entirety of the case to help with positioning, retraction, and was utilized throughout all portions of the case. ANESTHESIOLOGIST: Dr. Sheridan. ANESTHESIA: General, interscalene block. PRE-OP DIAGNOSIS: Right shoulder endstage glenohumeral arthritis with rotator cuff arthropathy. POST-OP DIAGNOSES: Right shoulder endstage glenohumeral arthritis with rotator cuff arthropathy. OPERATIVE PROCEDURE: Right shoulder reverse shoulder arthroplasty and open biceps tenodesis. COMPLICATIONS: None. ESTIMATED BLOOD LOSS: About 200. OUTPUT: Drain x1. IMPLANTS: Aequalis Reversed II threaded post baseplate 25 x 40, centered glenosphere size 42, +6 reversed insert and a centered tray, and a size 8B stem. INDICATIONS: Phi Pimentel is a 78-year-old male, who has a history of a left shoulder reverse arthroplasty that he did well with. He has right shoulder endstage arthritis with pseudoparalysis and rotator cuff arthropathy. The patient has failed conservative management and elected to proceed with surgical treatment. Risks and benefits were discussed at length, which included , but not limited to bleeding, infection, damage to nerves, vessels, surrounding structures, wound nonhealing, persistent pain, need for further surgery, scarring, stiffness, incomplete relief of symptoms, risks of anesthesia , and risk of DVT. He required medical and cardiac risk optimization prior to surgery. DESCRIPTION OF PROCEDURE: The patient was greeted in the preoperative area by the attending surgeon. Correct extremity was marked and consent was confirmed. The patient underwent interscalene nerve block by the anesthesiologist, after which he was brought back to the operating suite where he was placed in the supine position on the operating table. He then underwent general anesthesia and endotracheal intubation, after which he was placed in a lazy beach chair position, with all prominences padded, and he was secured with a pegboard. The right shoulder was then prepped and draped in the usual sterile fashion beginning with chlorhexidine soap, scrub, and alcohol wipe, and a final prep with ChloraPrep. After appropriate surgical pause indicating side, site, procedure, and administration of antibiotics, the deltopectoral interval incision was then made using a 15-blade. Soft tissues were carefully dissected to expose the deltopectoral interval, which exposed the deltoid and cephalic vein was taken laterally and the pec medially. The clavipectoral fascia was identified and excised. There was a large ganglion cyst along the biceps. The proximal 1 cm to 1.5 cm was then released of the pec. The biceps was then tenodesed to the pec tendon. The biceps was tenotomized proximal to that and followed up to the groove. The ganglion was released and excised in its entirety. The three sisters were identified and suture ligated and then cauterized. The dissection was taken to the subscap. The subscap was then released in a subscap peal fashion and tagged with a #5 Ethibond suture. This was released in its entirety. The head was externally rotated. There was a small anterior inferior rim of osteophyte that was identified about the humeral head. There were grade 4 changes. There was a small amount of the infraspinatus that was intact. This was released. At this point, the provisional neck cut was then marked and then made with a sagittal saw. The canal finder was then used to find the canal and then broaching began. A size 8 was chosen and found to be the appropriate size. The protection plate was placed and attention was directed to the glenoid. The glenoid was exposed. The anterior, posterior, and superior labrum and stump of the biceps was then removed in its entirety. There was abundant synovitis that was present. There were some mild osteophytosis about the glenoid as well. There was posterior wear. Once it was fully exposed carefully and the subscap was released of its adhesions to the superior and medial glenohumeral ligaments. The drill guide was used to place the guide pin inferiorly in the glenoid, reaming them again with a size 25 baseplate reamer. Then hand reaming was done with a 36 and 42 reamer to make use of the size. The centered drill peg, 8 mm drill peg, was then drilled and the 6.5 was measured to about 35 and so a size 40 was chosen. A size 40 drill hole was tapped. The glenoid was visualized. A 25 x 40 was chosen and it was placed with excellent purchase. Again, there was some posterior wear, so bone graft that was placed from the humeral head to both the posterior aspect of the glenoid. Three interlocking drill bits were then drilled to allow for further fixation. The 42 glenosphere was then impacted into position and secured with the set screw. Attention was then directed to the humerus. The size 8 stem was checked and found to have a good fit, but the bone quality was soft. Therefore, more bone graft was taken from the humeral head to be implanted with the final stem. The +6 poly was then placed and the shoulder was reduced, taken through range of motion, and found to have appropriate shuck and range of motion and a forward flexion of 150, abduction to about 100 degrees, external rotation to 70, internal rotation to posterior hip. The shoulder was then dislocated and the final implants were chosen for the humerus. These were prepared on the back table by the attending surgeon. Transosseous tunnels were then placed in the humerus for subscap fixation. Bone graft was then placed into the humeral canal. The final implants were impacted into position with good purchase. The poly was then impacted into position. The shoulder was then reduced and taken through range of motion and found to be the same as it was with the first trial. The wound was then copiously irrigated with sterile saline. The subscap was closed in a horizontal mattress configuration with the previously passed #5 Ethibond sutures. The wound was irrigated again. An intraarticular drill was then placed. The wound was irrigated again. The deltopectoral interval was closed with #2 Ethibond sutures. The wound was irrigated again. Skin was closed in layers with 3-0 Monocryl. Sterile dressings were applied. A Cryo/Cuff as well as a sling was applied. He was awoken from anesthesia and transferred to the PACU in stable condition. POSTOPERATIVE PLAN: He will be nonweightbearing. No range of motion of the shoulder. He is allowed elbow, hand, and wrist range of motion. He will be on 24 hours of postoperative antibiotics. He will restart his Eliquis when he is eating again. He will be discharged potentially on postop day 1 after the drain is discontinued. I will see the patient back in 10 to 14 days. [id number]/[facility] #: [id number] [facility]
[2018-10-18] MEDS: ceFAZolin 1 GM ADVAN(*) 1 GM in NS 0.9% 50 ML* 50 ML IVPB SCH (16:32)
[2018-10-18] MEDS ORDERED: Calcium Carbonate CHEW TAB* 500 MG (TUMS) PO PRN ×2 (16:47→16:48)
[2018-10-18] MEDS ORDERED: Calcium Carbonate CHEW TAB* 500 MG (TUMS) ONE (16:48)
[2018-10-18] MEDS: traMADol TAB* 50 MG PO PRN ×2 (16:49→23:46)
[2018-10-18] MEDS ORDERED: Budesonide Flexhaler 90 (NF) 90 MCG/ACT MDI INH SCH (21:00)
[2018-10-18] MEDS ORDERED: Mometasone 220 MCG MDI INH SCH (21:00)
[2018-10-18] MEDS ORDERED: Temazepam CAP* 15 MG PO PRN (21:00)
[2018-10-18] MEDS: Docusate CAP* 100 MG PO SCH (22:07)
[2018-10-18] MEDS: Carvedilol TAB* 3.125 MG PO SCH (22:07)
--- NOTE | 2018-10-18 22:12 | CONS ---
CONSULTATION REPORT: DATE OF CONSULT: 10/18/18 REASON FOR CONSULT: Co-management of chronic medical conditions. REQUESTING PROVIDER: Dr. Can. HISTORY OF PRESENT ILLNESS: Phi Pimentel is a 78-year-old white male with past medical history significant for atrial fibrillation, status post multiple cardioversions on anticoagulation, coronary artery disease, hypertension, hyperlipidemia, asthma, YOSELYN on CPAP, and heart failure with reduced ejection fraction, status post pacemaker and BiV ICD, who presents today for elective right reverse total shoulder arthroplasty with Dr. Can. The patient failed outpatient conservative medical therapy of his right shoulder arthroplasty, arthritis and has elected for surgery today. Dr. Can has consulted the hospital medicine service for co-management of chronic medical conditions. The patient is evaluated on medical floor after leaving the PACU. He feels that the nerve block is still very much in effect and therefore, his pain feels controlled. He admits he feels tired after the procedure. He provides history as well as his at bedside. He denies chest pain, difficulty breathing, headache, visual changes, abdominal pain, nausea, or vomiting. PAST MEDICAL HISTORY: 1. Atrial fibrillation, status post multiple cardioversions, on anticoagulation. 2. Heart failure with reduced ejection fraction (EF of 25% to 30%), status post pacemaker and BiV ICD. 3. Asthma. 4. Coronary artery disease. 5. Hypertension. 6. Hyperlipidemia. 7. BPH. 8. YOSELYN, on CPAP. 9. History of parkinsonian features. 10. 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 This mutation was tested for after the patient's daughter was found to be positive for this mutation during gynecological exam. The patient denies history of VTE. PAST SURGICAL HISTORY: 1. Left total shoulder arthroplasty. 2. Hernia repair. 3. ORIF of the left hip. 4. Permanent pacemaker placement. HOME MEDICATIONS: 1. Pulmicort inhaler b.i.d. 2. Ventolin inhaler 2 puffs 4 times a day p.r.n. shortness of breath or wheezing. 3. Amiodarone 200 mg p.o. daily. 4. Carvedilol 3.125 mg p.o. b.i.d. 5. Eliquis 5 mg p.o. b.i.d. 6. Finasteride 5 mg p.o. daily. 7. Tamsulosin 0.4 mg p.o. daily. 8. Magnesium 250 mg p.o. daily. 9. Tylenol p.r.n. 10. Spironolactone 12.5 mg p.o. daily. 11. Irbesartan 75 mg daily. ALLERGIES: No known drug allergies. FAMILY HISTORY: Father at age 66 of esophageal cancer, otherwise was noted to be healthy. Mother at age 82 due to stomach cancer and was otherwise noted to be healthy. Brother of lung cancer. Sister of breast cancer. SOCIAL HISTORY: The patient is a former smoker. He quit smoking approximately 35 years ago. He smoked approximately 1 pack per day for approximately 20 years. Denies alcohol use and denies drug use. 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 He lives with his . REVIEW OF SYSTEMS: An 11-point review of systems was completed and all pertinent positives and negatives are above in the HPI. Other systems are negative. PHYSICAL EXAM: General: Elderly white male, lying in hospital bed, appearing in no acute distress. Eyes: PERRL. Sclerae anicteric. ENT: Mucous membranes moist. Neck: Supple without JVD. Cardio: Irregularly irregular rhythm without appreciable murmurs, rubs, or gallops. Abdomen: Normoactive bowel sounds x4 quadrants. Abdomen is soft, nontender, nondistended. Extremities: Right arm is in sling. The patient is able to move all 10 fingers. All extremities are warm and there is no clubbing, cyanosis or edema in all extremities. Neuro: The patient is easily alerted to voice and is oriented x3. No focal deficits. Skin: Warm, dry, and intact. DIAGNOSTIC STUDIES/LAB DATA: None to report. ASSESSMENT AND PLAN: Atrial fibrillation. The patient has history of multiple cardioversions and given change in fluid status postoperative as well as my auscultating an irregular rhythm, I would like to start the patient on telemetry. The patient does take Eliquis at home and he is currently receiving the nontherapeutic dose of Lovenox; however, I will defer to Orthopedic Surgery regarding the timing for restarting the Eliquis given postoperative risk of bleeding. The patient's home amiodarone, carvedilol will be continued. 1. Congestive heart failure. The patient is not currently in overt decompensation. I will continue his home spironolactone, ARB and carvedilol. 2. Obstructive sleep apnea. The patient has brought his home CPAP and I will order for this equipment to be used with the settings at 8 and 14 per Sleep Medicine recommendation and I will order continuous pulse ox overnight. 3. Benign prostatic hypertrophy. Continue patient's home tamsulosin, finasteride. 4. Asthma. The patient's home rescue inhaler and home budesonide inhaler will be continued. 5. DVT prophylaxis. Lovenox as previously discussed. 6. Status post right total shoulder. Management per Orthopedic Surgery. 7. Disposition. Per Orthopedic Surgery. Thank you for allowing us to participate in the care of this patient. We will follow along during this admission. PRASANNA KULKARNI [id number]/[facility] #: [id number] MTDFelisa
[2018-10-19] MEDS: ceFAZolin 1 GM ADVAN(*) 1 GM in NS 0.9% 50 ML* 50 ML IVPB SCH ×2 (00:47→07:53)
[2018-10-19] MEDS: Acetaminophen TAB* 325 MG PO SCH (06:31)
[2018-10-19 06:44] LABS: Hematocrit 29 % (42-52); Mean Platelet Volume 8.9 fL (7.4-10.4); Platelet Count 123 10^3/uL (150-450)
[2018-10-19 06:56] LABS: BUN/Creatinine Ratio 17.8 (8-20); Calcium 8.3 mg/dL (8.6-10.3); EGFR African American 125.7 (>60); EGFR Non-African American 103.9 (>60); Potassium 3.9 mmol/L (3.5-5.0)
[2018-10-19] MEDS: Docusate CAP* 100 MG PO SCH (07:52)
[2018-10-19] MEDS: Carvedilol TAB* 3.125 MG PO SCH (07:53)
[2018-10-19] MEDS ORDERED: Amiodarone TAB* 200 MG PO SCH (09:00)
[2018-10-19] MEDS ORDERED: Losartan TAB* 25 MG PO SCH (09:00)
[2018-10-19] MEDS ORDERED: Spironolactone TAB* 25 MG PO SCH (09:00)
[2018-10-19] MEDS ORDERED: Magnesium Oxide TAB* 400 MG PO SCH (09:00)
[2018-10-19] MEDS ORDERED: Finasteride TAB* 5 MG PO SCH (09:00)
[2018-10-19] MEDS ORDERED: Tamsulosin CAP* 0.4 MG PO SCH (09:00)
[2018-10-19] MEDS ORDERED: Apixaban* 5 MG TAB PO SCH (11:00)
--- NOTE | 2018-10-19 11:23 | DS ---
Orthopedic Discharge Summary - Discharge Summary Date of Admission:10/18/18 Date of Discharge: 10/19/18 Date of Surgery: 10/18/18 Attending Orthopedic Provider: Dr Can Pre-operative Diagnosis: Right shoulder osteoarthritis Operative Procedure: right reverse shoulder arthroplasty Disposition of Patient: home Condition of Patient: stable History: CHAIM CORONADO is a 78 year old M with years of increasingly severe right shoulder pain. Patient has failed conservative management and has elected to undergo a right total shoulder replacement Hospital Course: CHAIM was admitted to [facility] on 10/18/18. Patient underwent a right reverse shoulder arthroplasty without complication followed by a brief recovery in PACU and transfer to the Short Stay Surgical Unit in stable condition. Our hospitalist service, physical therapy and occupational therapy also participated in this patients care. Post-op day 1: patient was alert and in no acute distress. Dressing was clean, dry and intact. Drain was pulled, NVI distally. Patient was deemed to be medically and orthopedically stable for discharge. Physical therapy goals were met. Home Medications Medication Instructions Recorded Confirmed Type Albuterol inh POWDER (NF) [Proair 2 puff IN Q4H PRN 11/22/14 10/06/18 History Respiclick] Finasteride TAB* Proscar TAB* 1 tab PO DAILY 11/22/14 10/06/18 History Tamsulosin HCl [Flomax] 1 tab PO DAILY 11/22/14 10/06/18 History Carvedilol TAB* [Coreg TAB*] 3.125 mg PO BID 07/05/16 10/06/18 History Spironolactone [Aldactone 25 MG-] 12.5 mg PO DAILY 12/10/16 10/06/18 History Apixaban* [Eliquis*] 5 mg PO BID tab 12/24/16 10/06/18 Rx Acetaminophen [Tylenol Extra 1 tab PO SEE INSTRUCTIONS PRN 07/20/18 10/06/18 History Strength] Budesonide Flexhaler 90 (NF) 2 puff PO BID 07/20/18 10/06/18 History [Pulmicort Flexhaler 90 mcg/act (NF)] Irbesartan (NF) [Avapro (NF)] 75 mg PO DAILY 07/20/18 10/06/18 History Amiodarone TAB* [Cordarone Tab*] 200 mg PO DAILY #0 09/12/18 10/06/18 Rx Magnesium Oxide [Magnesium] 250 mg PO DAILY 10/06/18 10/06/18 History Acetaminophen TAB* [Tylenol TAB*] 975 mg PO Q8HR tab 10/19/18 Rx Docusate CAP* [Colace Cap*] 100 mg PO BID PRN #90 cap 10/19/18 Rx oxyCODONE/Acetamin 5/325 MG* 2 tab PO Q4H PRN #50 tab MDD 8 10/19/18 Rx [Percocet 5/325 TAB*] Orthopedic Total Shoulder Instruction Non-weight bearing for operative upper extremity. No range of motion at the shoulder. Continue elbow, wrist, and hand pendulums shown by PT . Wound Care: OK to shower after third post- operative day, no bathing/ swimming / submerging wound. Use gentle soap, pat dry. Cover with gauze, TOMY wrap or tape. Pain control with: percocet 5/325 mg 1-2 tabs by mouth every 4-6 hours max of 8 per day. Please note that percocet contains tylenol (acetaminophen). Maximum daily dose of tylenol is 4000 mg from all sources. Continue your home medications including your eliquis. Diet: Regular diet, increase fluids and fiber to prevent constipation. Continue to use stool softeners, call office if no bowel motion within 48 hours. Call Orthopedic office for increased drainage, redness, increased pain, or fever. Go to ER with shortness of breath or chest pain. - Antibiotics required prior to any dental work Please call our office with any questions or concerns ([phone]) [place] to [facility]
--- NOTE | 2018-10-19 11:27 | PN ---
Progress Note - Progress Note Date of Service: 10/19/18 SOAP: Subjective: []Pt seen at bedside. He feels well and desires DC home. Denies CP, SOB, dizziness, nausea. Objective: [] Gen: Appears well, NAD RUE: Drain pulled with tip intact, tolerated well by patient. Sensation intact to light touch throughout RUE. Able to flex and extend at wrist and all digits without pain. Radial pulse 2+, capillary refill less than two seconds distally Calves supple and nontender Assessment: []POD 1 sp reverse right shoulder arthroplasty Plan: []NWB RUE No range of motion at the right shoulder. Okay for elbow, wrist, hand ROM resume home eliquis DC home today FU Dr Can in 2 weeks, sooner with concerns Vital Signs Temp 98.6 F 10/19/18 07:43 Pulse 59 10/19/18 07:43 Resp 18 10/19/18 07:43 BP 121/69 10/19/18 07:43 Pulse Ox 99 10/19/18 07:43 Intake & Output 10/18/18 10/19/18 10/19/18 18:59 06:59 18:59 Intake Total 2175 1670 1335 Output Total 690 1125 Balance 2461 936 2516 Intake: IV Fluids 1500 420 985 LR 1500 420 985 IVPB 675 110 LR 565 55 abx 55 Oral 0 1250 240 Output: Hemovac Amount #1 375 Urine 190 750 Estimated Blood Loss 500 Other: # Bowel Movements 0 Laboratory Last Values Hgb 10.0 g/dL (14.0-18.0) L 10/19/18 05:56 Hct 29 % (42-52) L 10/19/18 05:56 Plt Count 123 10^3/uL (150-450) L 10/19/18 05:56 MPV 8.9 fL (7.4-10.4) 10/19/18 05:56 Sodium 136 mmol/L (135-145) 10/19/18 05:56 Potassium 3.9 mmol/L (3.5-5.0) 10/19/18 05:56 Chloride 107 mmol/L (101-111) 10/19/18 05:56 Carbon Dioxide 24 mmol/L (22-32) 10/19/18 05:56 Anion Gap 5 mmol/L (2-11) 10/19/18 05:56 BUN 13 mg/dL (6-24) 10/19/18 05:56 Creatinine 0.73 mg/dL (0.67-1.17) 10/19/18 05:56 Est GFR ( Amer) 125.7 (>60) 10/19/18 05:56 Est GFR (Non-Af Amer) 103.9 (>60) 10/19/18 05:56 BUN/Creatinine Ratio 17.8 (8-20) 10/19/18 05:56 Glucose 101 mg/dL (70-100) H 10/19/18 05:56 Calcium 8.3 mg/dL (8.6-10.3) L 10/19/18 05:56
[2018-10-19] MEDS: traMADol TAB* 50 MG PO PRN (11:57)
[2018-10-19] MEDS ORDERED: Enoxaparin(*) 40 MG/0.4 ML SYR SUBCUT SCH (12:00)
[2018-10-19 12:05] VITALS: BP 111/51
== END 2018-10-19 13:10 | disposition home or self-care (01) | DRG 483 ==
LOC: INTOOBSV 05:37 → AA 05:37 → OBSVTOIN 10:36 → SSU 12:24
PROVIDERS: ADMIT Orthopaedic Surgery; ATTEND Orthopaedic Surgery
PROC: 0RRJ00Z Replacement of Right Shoulder Joint with Reverse Ball and Socket Synthetic Substitute, Open Approach (ICD-10-PCS; principal; 2018-10-18 07:30)
DX: M19.011 Primary osteoarthritis, right shoulder (principal); D68.52 Prothrombin gene mutation; I50.22 Chronic systolic (congestive) heart failure; I42.9 Cardiomyopathy, unspecified; E78.00 Pure hypercholesterolemia, unspecified; N40.0 Benign prostatic hyperplasia without lower urinary tract symptoms; I25.10 Atherosclerotic heart disease of native coronary artery without angina pectoris; Z96.612 Presence of left artificial shoulder joint; I11.0 Hypertensive heart disease with heart failure; G47.33 Obstructive sleep apnea (adult) (pediatric); J45.40 Moderate persistent asthma, uncomplicated; J44.9 Chronic obstructive pulmonary disease, unspecified; I48.0 Paroxysmal atrial fibrillation; D50.9 Iron deficiency anemia, unspecified; M75.101 Unspecified rotator cuff tear or rupture of right shoulder, not specified as traumatic; Z79.01 Long term (current) use of anticoagulants; Z95.0 Presence of cardiac pacemaker; Z80.9 Family history of malignant neoplasm, unspecified; Z83.3 Family history of diabetes mellitus; Z87.891 Personal history of nicotine dependence; Z82.49 Family history of ischemic heart disease and other diseases of the circulatory system; Z80.0 Family history of malignant neoplasm of digestive organs
CPT/HCPCS: 36415; 80048; 85014; 85018; 85049; 88304; 88311; 94640; 94762; A9270-GY; G8978-GP-CI; G8979-GP-CI; G8980-GP-CI; J0690; J1100; J2250; J2405; J2704; J2710; J2795; J3010

== ENCOUNTER 2020-07-15 06:14 | Observation (INO) ==
[~2020-07-15 06:14] MED LIST changes: +Buffered Lidocaine 1% SYRIN 1 ml INTRADERM ONE; -Buffered Lidocaine 1% SYRIN* 1 ML/SYRINGE INTRADERM ONE; +Lactated Ringers 1000 ml BAG 1,000 ML IV SCH
[2020-07-15] MEDS ORDERED: ceFAZolin 2 GM PREMIX 2 GM/50 ML BAG ONE (06:59)
[2020-07-15] MEDS ORDERED: Lidocaine 1% MPF 5 ML VIAL ONE ×2 (07:04→07:33)
[2020-07-15 07:49] LABS: INR 1.17 (0.82-1.09)
[2020-07-15] MEDS ORDERED: Midazolam 5 mg/5 ml VIAL 1 mg/ml 5 ml VIAL (5 mg) ONE (07:58)
[2020-07-15] MEDS ORDERED: Etomidate 20 mg/10 ml 2 MG/ML 10 ml VIAL ONE (08:24)
[2020-07-15] MEDS ORDERED: HYDROmorphone 1 MG/1 ML SYRINGE ONE ×3 (08:52→13:02)
[2020-07-15] MEDS ORDERED: Rocuronium 50 mg VIAL 10 mg/ml 5 ml VIAL (50 mg) ONE ×2 (09:04→09:06)
[2020-07-15] MEDS ORDERED: Propofol 0 MG/0 ML BTL ONE (09:06)
[2020-07-15] MEDS ORDERED: Lidocaine 2% PF 5 ML VIAL ONE (09:06)
[2020-07-15] MEDS ORDERED: fentaNYL 100 mcg/2 ml 50 MCG/ML VIAL ONE ×2 (09:06→11:25)
[2020-07-15] MEDS ORDERED: EPHEDrine (Pressors) 50 MG/ML VIAL ONE (09:06)
[2020-07-15] MEDS ORDERED: Ondansetron 4 mg VIAL 2 MG/ML 2 ml VIAL ONE (09:11)
[2020-07-15] MEDS ORDERED: Dexamethasone IV 4 MG/ML VIAL 1 ml VIAL ONE ×2 (09:11→09:20)
[2020-07-15] MEDS ORDERED: Bupivacaine 0.5% SDV PF 30ML VIAL ONE (09:20)
[2020-07-15] MEDS ORDERED: Propofol 10 MG/ML 20 ML BTL ONE (09:47)
[2020-07-15] MEDS ORDERED: Acetaminophen IV 1 GM/100ML 100 ML ONE (09:54)
[2020-07-15] MEDS ORDERED: diPHENhydraMINE IV 50 MG/ML 1 ml VIAL (BENADRYL) IV PRN ×2 (10:10→11:21)
[2020-07-15] MEDS ORDERED: Naloxone 0.4 mg VIAL 0.4 mg/ml 1 ml VIAL IV PRN (10:10)
[2020-07-15] MEDS: HYDROmorphone 1 MG/1 ML SYRINGE IV PRN ×5 (11:20→13:00)
[2020-07-15] MEDS ORDERED: diPHENhydraMINE 25 mg TAB PO PRN (11:21)
[2020-07-15] MEDS ORDERED: Morphine 2 MG/ML SYRINGE IV PRN (11:21)
[2020-07-15] MEDS ORDERED: Magnesium Hydroxide LIQ 30 ML UDC PO PRN (11:21)
[2020-07-15] MEDS ORDERED: Ondansetron ODT 4 mg TAB 4 MG TAB PO PRN (11:21)
[2020-07-15] MEDS ORDERED: Lactulose 30 ml UDC PO PRN (11:21)
[2020-07-15] MEDS ORDERED: Dexmedetomidine 200 mcg/2 ml 2 ml VIAL (200 mcg) ONE (11:38)
[2020-07-15] MEDS ORDERED: ceFAZolin 1 GM ADVAN 1 GM in NS 0.9% 50 ML 50 ML IVPB SCH (12:00)
[2020-07-15] MEDS: Lactated Ringers 1000 ml BAG 1,000 ML IV SCH (15:17)
[2020-07-15] MEDS: ceFAZolin 1 GM ADVAN 1 GM in NS 0.9% 50 ML 50 ML IVPB SCH (17:03)
[2020-07-15] MEDS: Magnesium Hydroxide LIQ 30 ML UDC PO SCH (21:11)
[2020-07-15] MEDS: Ondansetron 4 mg VIAL 2 MG/ML 2 ml VIAL IV PRN (23:20)
[2020-07-16] MEDS: ceFAZolin 1 GM ADVAN 1 GM in NS 0.9% 50 ML 50 ML IVPB SCH ×2 (00:28→08:26)
[2020-07-16] MEDS: Lactated Ringers 1000 ml BAG 1,000 ML IV SCH (00:29)
[2020-07-16 07:01] LABS: Hematocrit 32 % (42-52); Hemoglobin 10.9 g/dL (14.0-18.0); Mean Platelet Volume 8.9 fL (7.4-10.4); Platelet Count 139 10^3/uL (150-450)
[2020-07-16 07:24] LABS: BUN/Creatinine Ratio 21.4 (8-20); Calcium 8.2 mg/dL (8.6-10.3); EGFR African American 131.6 (>60); EGFR Non-African American 108.8 (>60); Potassium 4.1 mmol/L (3.5-5.0)
[2020-07-16] MEDS: Magnesium Hydroxide LIQ 30 ML UDC PO SCH (08:30)
[2020-07-16] MEDS ORDERED: Vitamin THERAPEUTIC TAB PO SCH (09:00)
[2020-07-16] MEDS: Ondansetron 4 mg VIAL 2 MG/ML 2 ml VIAL IV PRN (10:07)
[2020-07-16 16:05] VITALS: BP 100/61
[2020-07-19] MEDS ORDERED: Scopolamine PATCH Remove NOTE PATCH OFF SCH (10:59)
== END 2020-07-16 17:00 | disposition home or self-care (01) ==
LOC: AA 06:14 → INTOOBSV 06:14 → SSU 14:41
PROVIDERS: ADMIT Orthopaedic Surgery Adult Reconstructive Orthopaedic Surgery; ATTEND Orthopaedic Surgery Adult Reconstructive Orthopaedic Surgery